=== PATIENT | male | born 1930 | race Caucasian/White ===

== ENCOUNTER 2016-06-27 21:54 | Inpatient (IN) | payer MEDICARE, MEDICAID ==
[~2016-06-27] VITALS: Ht 182.9 cm; Wt 90.7 kg
[~2016-06-27 21:54] MED LIST: ALLOPURINOL100 M1 ORAL; AMLODIPINE BESY10 MG ORAL; AMLODIPINE BESYL5 MG ORAL; ASCORBIC ACID500 M4 ORAL; ATIVAN1 MG ORAL; BENADRYL25 MG ORAL; BENADRYL50 MG ORAL; BETHANECHOL CHL25 MG ORAL; COLACE250 MG ORAL; COUMADIN3 MG ORAL; COZAAR50 MG ORAL; CRANBERRY450 M3 PO; DEPAKENE250 MG ORAL; DEPAKOTE250 MG PO; DOCUSATE CALCI240 MG PO; DOCUSATE SODIU100 MG ORAL; DONEPEZIL HCL10 M2 ORAL; FAMOTIDINE20 MG ORAL; FEOSOL45 MG PO; FERROUS SULFAT325 MG ORAL; FUROSEMIDE40 MG ORAL; HYDROCHLOROTHIA25 MG ORAL; IPRAT-ALBUT 0.5-3 ML IH; LEVOTHYROXINE25 MCG ORAL; LORAZEPAM0.5 MG ORAL; LORAZEPAM1 MG ORAL; LOSARTAN POTASS50 MG ORAL; MOM30 ML ORAL; MULTI VITAMIN1 EACH ORAL; NAMENDA10 MG ORAL; NORVASC5 MG ORAL; POTASSIUM99 M2 PO; PROSCAR5 MG ORAL; SERTRALINE HCL50 MG ORAL; SIMVASTATIN20 MG ORAL; STROMECTOL3 MG ORAL; TAMSULOSIN HCL0.4 MG ORAL; TRIAMCINOLONE10 G1 MC; TYLENOL325 MG ORAL; TYLENOL650 MG/20. ORAL; VISTARIL25 MG ORAL; ZINC SULFATE220 M1 ORAL; ZYRTEC10 MG ORAL
--- NOTE | 2016-06-27 22:19 | Emergency Room Report ---
History of Present Illness General Chief Complaint: Abnormal Labs Source: Medical Record, EMS, PMD Present Illness HPI Is a 85-year-old male with multiple medical problem. He resides in a [facility]. At baseline he is confused and has a feeding tube. He presents with abnormal lab with elevated BUN and creatinine. Also elevated sodium. Patient is nonresponsive. Unable to get history from him. No other complaint. History is from the [facility] And primary care DrBrionna Allergies: Coded Allergies: No Known Allergies (Unverified , 04/13/15) Patient History Past Medical History: see triage record, old chart reviewed Past Surgical History: other Pertinent Family History: none Social History: Denies: smoking Immunizations: other Reviewed Nursing Documentation: PMH: Agreed, PSxH: Agreed Nursing Documentation-PMH Hx Hypertension: Yes Hx Cancer: No Hx Dementia: Yes Hx Alzheimer's Disease: Yes Hx Parkinson's Disease: Yes Hx Encephalitis: No - Encephalopathy Hx Speech Problem: Yes - communicate deficit Review of Systems Constitutional: Reports: weakness All Other Systems: limited - Secondary to patient condition Physical Exam Vital Signs Date Time Temp Pulse Resp B/P Pulse Ox O2 Delivery O2 Flow Rate FiO2 06/27/16 21:55 97.0 99 22 134/71 95 Nasal Cannula 3.0 vitals unremarkable Sp02 EP Interpretation: reviewed, normal General Appearance: lethargic, Chronically Ill Head: normocephalic, atraumatic Eyes: bilateral eye EOMI, bilateral eye PERRL ENT: dry mucus membranes - Severely Neck: full range of motion, supple, no meningismus Respiratory: chest non-tender, lungs clear, normal breath sounds Cardiovascular #1: regular rate, rhythm, no murmur Gastrointestinal: normal bowel sounds, non tender, no mass, no organomegaly, no bruit, non-distended Musculoskeletal: back normal Neurologic: grossly normal - Grimace to pain Psychiatric: mood/affect normal Skin: warm/dry Medical Decision Making Diagnostic Impression: Primary Impression: Acute renal failure Qualified Codes: N17.9 - Acute kidney failure, unspecified Additional Impressions: Dehydration, severe Acute hypernatremia Anemia Qualified Codes: D64.9 - Anemia, unspecified Proteinuria Qualified Codes: R80.9 - Proteinuria, unspecified ER Course Patient presents with severe dehydration with acute renal failure. He is making urine now. No evidence of infection. CT scan head negative. Chest x- ray negative. Patient will be admitted. Lab Results Impression labs with acute renal failure. EKG Diagnostic Results Rate: normal Rhythm: NSR ST Segments: no acute changes Rhythm Strip Diag. Results EP Interpretation: yes Rate: 82 Rhythm: NSR, no PVC's, no ectopy Chest X-Ray Diagnostic Results EP Interpretation: Yes Findings: no consolidation, no effusion, no pneumothorax, no acute cardiopulmonary disease Number of Views: 1 CT/MRI/US Diagnostic Results CT/MRI/US Diagnostic Results : Imaging Test Ordered: ct head Impression negative per radiologist Last Vital Signs Date Time Temp Pulse Resp B/P Pulse Ox O2 Delivery O2 Flow Rate FiO2 06/27/16 21:55 97.0 99 22 134/71 95 Nasal Cannula 3.0 Status: improved Disposition: ADMITTED INPATIENT Condition: Serious QUINTIN JUAN M.D. June 27, 2016 22:19
[2016-06-27] MEDS ORDERED: LEVOTHYROXINE25 MCG PEG (22:28)
[2016-06-27] MEDS ORDERED: HYDRALAZINE HCL50 MG PEG (22:28)
[2016-06-27] MEDS ORDERED: DOCUSATE SODIU100 M2 PEG (22:28)
[2016-06-27] MEDS ORDERED: TAMSULOSIN HCL0.4 MG PEG (22:28)
[2016-06-27] MEDS ORDERED: LEVETIRACETAM500 M1 PEG (22:28)
[2016-06-27] MEDS ORDERED: PROSCAR5 MG PEG (22:28)
[2016-06-27] MEDS ORDERED: HYDRALAZINE HCL50 MG ORAL (22:28)
[2016-06-27 22:37] LABS: BASOPHILS % (AUTO) 0.6 % (0.0-2.0); EOSINOPHILS % (AUTO) 5.6 % (0.0-3.0); LYMPHOCYTES % (AUTO) 19.2 % (20.0-45.0); MEAN CORPUSCULAR HEMOGLOBIN 30.8 PG (27.0-31.0); MEAN CORPUSCULAR HGB CONC 31.1 G/DL (32.0-36.0); MEAN CORPUSCULAR VOLUME 99 FL (80-99); MEAN PLATELET VOLUME 10.9 FL (6.5-10.1); MONOCYTES % (AUTO) 7.3 % (1.0-10.0); NEUTROPHILS % (AUTO) 67.3 % (45.0-75.0); PLATELET COUNT 133 K/UL (150-450); RED BLOOD COUNT 3.32 M/UL (4.70-6.10); RED CELL DISTRIBUTION WIDTH 17.3 % (11.6-14.8); WHITE BLOOD COUNT 4.7 K/UL (4.8-10.8)
[2016-06-27 22:44] LABS: PROTHROMBIN TIME 10.3 SEC (9.30-11.50)
[2016-06-27 22:48] LABS: TROPONIN I < 0.30 ng/mL (<=0.30)
[2016-06-27 22:50] LABS: ANION GAP 12 (5-15); CALCIUM 9.6 mg/dL (8.6-10.2); CARBON DIOXIDE 28 mEQ/L (20-30); CHLORIDE 124 mEQ/L (98-107); CREATININE 2.7 mg/dL (0.7-1.2); HEMOLYSIS 4; POTASSIUM 4.4 mEQ/L (3.4-4.9)
[2016-06-27 22:52] LABS: SODIUM 164 mEQ/L (135-145)
[2016-06-27 23:24] LABS: APPEARANCE,URINE CLEAR; KETONES,URINE NEGATIVE (NEGATIVE); LEUKOCYTE ESTERASE ,URINE NEGATIVE (NEGATIVE); NITRITE,URINE NEGATIVE (NEGATIVE); PH,URINE 7 (4.5-8.0); PROTEIN,URINE 3+ (NEGATIVE); UROBILINOGEN,URINE NORMAL MG/DL (0.0-1.0)
[2016-06-27 23:47] VITALS: BP 143/88
[2016-06-28] VITALS (8 sets, daily range): BP systolic 123–168; BP diastolic 62–82
[2016-06-28 00:20] LABS: BACTERIA,URINE FEW /HPF; RBC,URINE 0-2 /HPF (0 - 0); WBC,URINE 0-2 /HPF (0 - 0)
[2016-06-28 06:24] LABS: BASOPHILS % (AUTO) 0.4 % (0.0-2.0); EOSINOPHILS % (AUTO) 5.9 % (0.0-3.0); LYMPHOCYTES % (AUTO) 20.9 % (20.0-45.0); MEAN CORPUSCULAR HEMOGLOBIN 28.8 PG (27.0-31.0); MEAN CORPUSCULAR HGB CONC 30.2 G/DL (32.0-36.0); MEAN CORPUSCULAR VOLUME 95 FL (80-99); MEAN PLATELET VOLUME 10.6 FL (6.5-10.1); MONOCYTES % (AUTO) 8.9 % (1.0-10.0); NEUTROPHILS % (AUTO) 63.9 % (45.0-75.0); PLATELET COUNT 132 K/UL (150-450); RED BLOOD COUNT 3.45 M/UL (4.70-6.10); RED CELL DISTRIBUTION WIDTH 17.2 % (11.6-14.8); WHITE BLOOD COUNT 4.9 K/UL (4.8-10.8)
[2016-06-28 06:38] LABS: ALANINE AMINOTRANSFERASE 51 U/L (3-41); ALBUMIN/GLOBULIN RATIO 0.8 (1.0-2.7); ASPARTATE AMINO TRANSFERASE 39 U/L (5-40); CALCIUM 9.2 mg/dL (8.6-10.2); CARBON DIOXIDE 26 mEQ/L (20-30); CHLORIDE 126 mEQ/L (98-107); CREATININE 2.4 mg/dL (0.7-1.2); HEMOLYSIS 4; POTASSIUM 4.3 mEQ/L (3.4-4.9); TOTAL PROTEIN 6.5 g/dL (6.6-8.7)
[2016-06-28 06:44] LABS: ANION GAP 9 (5-15)
[2016-06-28 06:55] LABS: SODIUM 161 mEQ/L (135-145)
[2016-06-28 09:35] LABS: CHOLESTEROL 108 mg/dL (< 200); CRP QUANT 0.3 mg/dL (< 0.5); HEMOLYSIS 11; LDL CHOLESTEROL (CALC.) 66 mg/dL (60-99); MAGNESIUM 2.2 mg/dL (1.7-2.5); PHOSPHORUS 2.7 mg/dL (2.5-4.8); URIC ACID 7.5 mg/dL (3.0-7.5)
--- NOTE | 2016-06-28 10:08 | Diagnostic Imaging Report ---
Indication: Chest Pain Comparison: 07/06/15 A single view chest radiograph was obtained. Findings: No definite infiltrate or pulmonary vascular congestion identified. The heart is enlarged. The aorta is mildly enlarged consistent with atherosclerotic vascular disease. Cholecystectomy clips are noted in the right upper quadrant of abdomen. The bones are osteopenic. Impression: No acute disease
--- NOTE | 2016-06-28 12:47 | Diagnostic Imaging Report ---
Indication: Altered mental status Technique: Contiguous 5 mm thick transaxial imaging of the head obtained in a Siemens Sensation [address] scanner. Soft tissue and bone windows generated. Total Dose length Product (DLP): [address] Dose Index Volume (CTDIvol): 70.38 mGy Comparison: 11/15/13 Findings: There is moderate prominence of the ventricles, basal cisterns, and cerebral sulci consistent with atrophy. Moderate, nonspecific, white matter hypoattenuation is noted throughout the brain consistent with chronic small vessel disease. There is no midline shift, edema, acute hemorrhage, mass effect, or abnormal extra-axial fluid collections. Bones and extra osseous soft tissues are unremarkable. There is opacification of the left maxillary sinus and bilateral ethmoid sinus. There is suggestion of expansion of the left maxillary sinus. Underlying polyps or a fluid retention cysts to be present. This is not evaluated well on the current study is obtained. Impression: No acute intracranial bleed, mass effect or edema. Moderate atrophy of the brain. Evidence of chronic small vessel disease involving white matter tracts. Moderate sinus disease as discussed above. [facility] has communicated the preliminary results to the Emergency Department. Their findings are largely concordant with this report. The CT scanner at [facility] is accredited by the [employer] and the scans are performed using protocols designed to limit radiation exposure to as low as reasonably achievable to attain images of sufficient resolution adequate for diagnostic evaluation.
--- NOTE | 2016-06-28 15:42 | Consultation ---
Consult Note Consult Note asked to evaluate for renal failure Is a 85-year-old male with multiple medical problem. He resides in a custodial. At baseline he is confused and has a feeding tube. He presents with abnormal lab with elevated BUN and creatinine. Also elevated sodium. Patient is nonresponsive. Unable to get history from him. No other complaint. History is from the custodial And primary care DrBrionna Rondon Hypertension: Yes Hx Cancer: No Hx Dementia: Yes Hx Alzheimer's Disease: Yes Hx Parkinson's Disease: Yes Hx Encephalitis: No - Encephalopathy Hx Speech Problem: Yes - communicate deficit patient examined- data reviewed discussed with cutter out/Plan status: # MARCO A on CKD, baseline Cr is 1.5 # Dehydration. and HyperNatremia Other: # h/o Bilateral hydroureter/hydronephrosis # S/P TURP # Coagulopathy 2/2 coumadin use, INR >10 # Anemia secondary to chronic disease # Anemia secondary to kidney disease # Distal common bile duct stone with moderate biliary ductal dilatation s/p sphincterotomy and stone removal and stent placement # Hypertension # Hypothyroidism Plan: UA- change IV to D5- Check TSH CARLEY kidney Monitor renal parameters and electrolytes- avoid nephrotoxics TAWANNA ONEIL June 28, 2016 15:42
--- NOTE | 2016-06-28 16:03 | GI Initial Consult Note ---
Lucia Johnson N.PBrionna 06/28/16 1603: History of Present Illness General Date patient seen: June 28, 2016 Time patient seen: 15:50 Reason for Hospitalization: Abnormal Labs Referring physician: TAMIKA ANGULO Reason for Consultation: GT EVALUATION Present Illness HPI Is a 85-year-old male with multiple medical problem. He resides in a [facility]. At baseline he is confused and has a feeding tube. He presents with abnormal lab with elevated BUN and creatinine. Also elevated sodium. Patient is nonresponsive. Unable to get history from him. No other complaint. History is from the [facility] And primary care Dr. GI CONSULT: HPI as noted above. GI consulted for GT evaluation/management and anemia. Pt seen on floor, [facility] limited. Patient presents today with anemia, elevated transaminase, hypoalbuminemia, and hypernatremia. Pt has hx of DVT, psychosis, GERD, dementia, constipation, Fe deficiency, hypothyroidism, HTN, s/ p ERCP 04/15/15 2/2 choledocholithiasis with stent placement. Home Meds Reported Medications Tamsulosin Hcl (TAMSULOSIN HCL*) 0.4 Mg Cap.er.24h, 0.4 MG PEG BEDTIME, CAP 06/27/16 Levothyroxine Sodium* (LEVOTHYROXINE SODIUM*) 25 Mcg Tablet, 25 MCG PEG DAILY, TAB Take in the morning on an empty stomach, at least 30 minutes before food. 06/27/16 Levetiracetam (LEVETIRACETAM) 500 Mg Tab.er.24h, 500 MG PEG BID, #30 TAB 0 Refills 06/27/16 Hydralazine Hcl* (HYDRALAZINE HCL*) 50 Mg Tablet, 50 MG PEG BID, TAB 06/27/16 Hydralazine Hcl* (HYDRALAZINE HCL*) 50 Mg Tablet, 50 MG ORAL BID, TAB 06/27/16 Finasteride* (PROSCAR*) 5 Mg Tablet, 5 MG PEG DAILY, #30 TAB 0 Refills 06/27/16 Docusate Sodium (DOCUSATE SODIUM) 100 Mg Tablet, 100 MG PEG DAILY, #30 TAB 0 Refills 06/27/16 Acetaminophen (Tylenol) 325 Mg Tab, 325 MG ORAL Q4HR Y for Prn Headache/Temp > 101, #30 TAB 2 Refills 5/14/16 Tamsulosin Hcl (TAMSULOSIN HCL*) 0.4 Mg Cap.er.24h, 0.4 MG ORAL BID, CAP 07/11/15 Lorazepam* (LORAZEPAM*) 1 Mg Tablet, 1 MG ORAL THREE TIMES A DAY Y for For Anxiety, TAB 07/11/15 Finasteride* (PROSCAR*) 5 Mg Tablet, 5 MG ORAL DAILY, #30 TAB 0 Refills 07/11/15 Diphenhydramine HCl (Diphenhydramine HCl) 50 Mg Cap, 50 MG ORAL Q6H Y for Itching, CAP 07/11/15 Cranberry Fruit Concentrate (CRANBERRY) 450 Mg Tablet, 450 MG PO DAILY, TAB 07/11/15 Bethanechol Chl* (BETHANECHOL CHLORIDE*) 25 Mg Tablet, 25 MG ORAL THREE TIMES A DAY, TAB 07/11/15 Warfarin Sod* (COUMADIN*) 3 Mg Tablet, 3 MG ORAL QPM, TAB 07/11/15 Levothyroxine Sodium* (LEVOTHYROXINE SODIUM*) 25 Mcg Tablet, 25 MCG ORAL DAILY, TAB Take in the morning on an empty stomach, at least 30 minutes before food. 04/14/15 Ipratropium/Albuterol Sulfate (IPRAT-ALBUT 0.5-3(2.5) MG/3 ML) 3 Ml Ampul.neb, 3 ML IH QID Y for Shortness of Breath, EA 04/14/15 Ferrous Sulfate* (FERROUS SULFATE*) 325 Mg Tablet, 325 MG ORAL TWICE A DAY, #60 TAB 0 Refills 04/14/15 Docusate Sodium* (DOCUSATE SODIUM*) 100 Mg Capsule, 100 MG ORAL DAILY, CAP 04/14/15 Lorazepam* (ATIVAN*) 1 Mg Tablet, 1 MG ORAL THREE TIMES A DAY, TAB 04/14/15 Amlodipine Besylate* (AMLODIPINE BESYLATE*) 5 Mg Tablet, 5 MG ORAL TWICE A DAY, TAB 04/14/15 Valproic Acid (Depakene) 250 Mg Cap, 250 MG ORAL DAILY, CAP 09/17/14 Potassium (POTASSIUM) 99 Mg Tablet, 40 MEQ PO DAILY, TAB 09/17/14 Furosemide* (LASIX*) 40 Mg Tablet, 40 MG ORAL DAILY, TAB 09/17/14 Losartan Potassium* (LOSARTAN POTASSIUM*) 50 Mg Tablet, 50 MG ORAL DAILY, TAB 09/17/14 Zinc Sulfate (ZINC SULFATE*) 220 Mg Capsule, 220 MG ORAL DAILY, CAP 0 Refills 11/21/13 Sertraline Hcl* (ZOLOFT*) 50 Mg Tablet, 50 MG ORAL DAILY, TAB 11/21/13 Iron,Carbonyl (FEOSOL) 45 Mg Tablet, 325 MG PO BID, TAB 11/21/13 Docusate Sodium (Docusate Sodium) 250 Mg Cap, 250 MG ORAL TWICE A DAY, CAP 11/21/13 Ascorbic Acid* (ASCORBIC ACID*) 500 Mg Tablet, 500 MG ORAL DAILY, #30 TAB 0 Refills 11/21/13 Acetaminophen (Acetaminophen) 650 Mg/20.3 Ml Soln, 650 MG ORAL Q4HR Y for Prn Headache/Temp > 101, ML 0 Refills 11/21/13 Memantine Hcl* (NAMENDA*) 10 Mg Tablet, 10 MG ORAL DAILY, TAB 01/14/13 Divalproex Sodium* (DEPAKOTE*) 250 Mg Tablet.dr, 125 MG PO BID 01/14/13 Donepezil Hcl* (DONEPEZIL HCL*) 10 Mg Tab.rapdis, 10 MG ORAL DAILY, TAB 01/14/13 Simvastatin (ZOCOR) 20 Mg Tablet, 20 MG ORAL BEDTIME, TAB 01/14/13 Allopurinol* (ALLOPURINOL*) 100 Mg Tablet, 100 MG ORAL DAILY, TAB 01/14/13 Losartan Potassium* (COZAAR*) 50 Mg Tablet, 100 MG ORAL DAILY 01/14/13 Multivitamin (MULTI VITAMIN DAILY) 1 Each Tablet, 1 TAB ORAL DAILY, TAB 0 Refills 01/14/13 Levothyroxine Sodium* (LEVOTHYROXINE SODIUM*) 25 Mcg Tablet, 25 MCG ORAL DAILY, TAB Take in the morning on an empty stomach, at least 30 minutes before food. 01/14/13 Lorazepam* (LORAZEPAM*) 0.5 Mg Tablet, 0.5 MG ORAL DAILY, TAB 01/14/13 Med list reviewed/reconciled: Yes Allergies: Coded Allergies: No Known Allergies (Unverified , 04/13/15) Patient History Limited by: medical condition History Provided By: Medical Record PMH Narrative Past Medical History: see triage record, old chart reviewed Past Surgical History: other Pertinent Family History: none Social History: Denies: smoking Immunizations: other Reviewed Nursing Documentation: PMH: Agreed, PSxH: Agreed Nursing Documentation-PMH Hx Hypertension: Yes Hx Cancer: No Hx Dementia: Yes Hx Alzheimer's Disease: Yes Hx Parkinson's Disease: Yes Hx Encephalitis: No - Encephalopathy Hx Speech Problem: Yes - communicate deficit Social History: Denies: alcohol use, drug use, other, smoking Review of Systems All Other Systems: limited Physical Exam Vital Signs Date Time Temp Pulse Resp B/P Pulse Ox O2 Delivery O2 Flow Rate FiO2 06/27/16 21:55 97.0 99 22 134/71 95 Nasal Cannula 3.0 06/28/16 12:00 28 Sp02 EP Interpretation: reviewed Labs Laboratory Tests Test 06/27/16 22:10 06/27/16 22:45 06/28/16 06:10 White Blood Count 4.7 K/UL (4.8-10.8) L 4.9 K/UL (4.8-10.8) Red Blood Count 3.32 M/UL (4.70-6.10) L 3.45 M/UL (4.70-6.10) L Hemoglobin 10.2 G/DL (14.2-18.0) L 9.9 G/DL (14.2-18.0) L Hematocrit 32.9 % (42.0-52.0) L 32.9 % (42.0-52.0) L Mean Corpuscular Volume 99 FL (80-99) 95 FL (80-99) Mean Corpuscular Hemoglobin 30.8 PG (27.0-31.0) 28.8 PG (27.0-31.0) Mean Corpuscular Hemoglobin Concent 31.1 G/DL (32.0-36.0) L 30.2 G/DL (32.0-36.0) L Red Cell Distribution Width 17.3 % (11.6-14.8) H 17.2 % (11.6-14.8) H Platelet Count 133 K/UL (150-450) L 132 K/UL (150-450) L Mean Platelet Volume 10.9 FL (6.5-10.1) H 10.6 FL (6.5-10.1) H Neutrophils (%) (Auto) 67.3 % (45.0-75.0) 63.9 % (45.0-75.0) Lymphocytes (%) (Auto) 19.2 % (20.0-45.0) L 20.9 % (20.0-45.0) Monocytes (%) (Auto) 7.3 % (1.0-10.0) 8.9 % (1.0-10.0) Eosinophils (%) (Auto) 5.6 % (0.0-3.0) H 5.9 % (0.0-3.0) H Basophils (%) (Auto) 0.6 % (0.0-2.0) 0.4 % (0.0-2.0) Prothrombin Time 10.3 SEC (9.30-11.50) Prothromb Time International Ratio 1.0 (0.9-1.1) Sodium Level 164 mEQ/L (135-145) *H 161 mEQ/L (135-145) *H Potassium Level 4.4 mEQ/L (3.4-4.9) 4.3 mEQ/L (3.4-4.9) Chloride Level 124 mEQ/L (98-107) H 126 mEQ/L (98-107) H Carbon Dioxide Level 28 mEQ/L (20-30) 26 mEQ/L (20-30) Anion Gap 12 (5-15) 9 (5-15) Blood Urea Nitrogen 93 mg/dL (7-23) H 87 mg/dL (7-23) H Creatinine 2.7 mg/dL (0.7-1.2) H 2.4 mg/dL (0.7-1.2) H Estimat Glomerular Filtration Rate mL/min (>60) mL/min (>60) Glucose Level 95 mg/dL (74-106) 91 mg/dL (74-106) Calcium Level 9.6 mg/dL (8.6-10.2) 9.2 mg/dL (8.6-10.2) Troponin I < 0.30 ng/mL (<=0.30) Urine Color Pale yellow Urine Appearance Clear Urine pH 7 (4.5-8.0) Urine Specific [place] 1.005 (1.005-1.035) Urine Protein 3+ (NEGATIVE) H Urine Glucose (UA) Negative (NEGATIVE) Urine Ketones Negative (NEGATIVE) Urine Occult Blood Negative (NEGATIVE) Urine Nitrite Negative (NEGATIVE) Urine Bilirubin Negative (NEGATIVE) Urine Urobilinogen Normal MG/DL (0.0-1.0) Urine Leukocyte Esterase Negative (NEGATIVE) Urine RBC 0-2 /HPF (0 - 0) H Urine WBC 0-2 /HPF (0 - 0) Urine Squamous Epithelial Cells None /LPF (NONE/OCC) Urine Bacteria Few /HPF (NONE) Hemoglobin A1c 5.0 % (< 6.0) Uric Acid 7.5 mg/dL (3.0-7.5) Phosphorus Level 2.7 mg/dL (2.5-4.8) Magnesium Level 2.2 mg/dL (1.7-2.5) Total Bilirubin 0.4 mg/dL (0.0-1.2) Gamma Glutamyl Transpeptidase 10 U/L (8-61) Aspartate Amino Transf (AST/SGOT) 39 U/L (5-40) Alanine Aminotransferase (ALT/SGPT) 51 U/L (3-41) H Alkaline Phosphatase 99 U/L (40-129) Total Creatine Kinase 22 U/L (38-174) L C-Reactive Protein, Quantitative 0.3 mg/dL (< 0.5) Total Protein 6.5 g/dL (6.6-8.7) L Albumin 2.9 g/dL (3.5-5.2) L Globulin 3.6 g/dL Albumin/Globulin Ratio 0.8 (1.0-2.7) L Triglycerides Level 77 mg/dL (< 150) Cholesterol Level 108 mg/dL (< 200) LDL Cholesterol 66 mg/dL (60-99) HDL Cholesterol 27 mg/dL (> 60) Cholesterol/HDL Ratio 4.0 (3.3-4.4) General Appearance: no apparent distress EENT: normal ENT inspection Neck: supple Respiratory: normal breath sounds, no respiratory distress Cardiovascular: normal rate Gastrointestinal: gt - c/d/i Rectal: deferred Skin: normal inspection, normal color, no rash, warm/dry Lymphatic: normal inspection, no adenopathy Current Medications Current Medications Medications (Trade) Dose Ordered Sig/Marci Route PRN Reason Start Time Stop Time Status Last Admin Dose Admin Dextrose (D5W 1000ml) 1,000 ml @ 100 mls/hr Q10H IV 06/29/16 10:00 07/29/16 09:59 UNV Olanzapine 2.5 mg 2.5 mg BEDTIME ORAL 06/28/16 21:00 07/28/16 20:59 GI: Plan Problems: (1) Hypernatremia (2) Anemia (3) Gastritis (4) Abdominal pain (5) Elevated CEA (6) Hypoalbuminemia (7) Encephalopathy acute (8) Diverticulosis (9) Hypothyroidism Plan anemia work up OB stool uncollected monitor H&H, transfuse prn H2B GI prophylaxis start GTFs per dietary GT site care daily/prn electrolyte correction bowel regime fu labs Discussed with Dr. Ho. Thank you for referring this patient, we will follow. HIEU HO 06/29/16 1719: History of Present Illness General Reason for Hospitalization: Abnormal Labs Present Illness Home Meds Reported Medications Tamsulosin Hcl (TAMSULOSIN HCL*) 0.4 Mg Cap.er.24h, 0.4 MG PEG BEDTIME, CAP 06/27/16 Levothyroxine Sodium* (LEVOTHYROXINE SODIUM*) 25 Mcg Tablet, 25 MCG PEG DAILY, TAB Take in the morning on an empty stomach, at least 30 minutes before food. 06/27/16 Levetiracetam (LEVETIRACETAM) 500 Mg Tab.er.24h, 500 MG PEG BID, #30 TAB 0 Refills 06/27/16 Hydralazine Hcl* (HYDRALAZINE HCL*) 50 Mg Tablet, 50 MG PEG BID, TAB 06/27/16 Hydralazine Hcl* (HYDRALAZINE HCL*) 50 Mg Tablet, 50 MG ORAL BID, TAB 06/27/16 Finasteride* (PROSCAR*) 5 Mg Tablet, 5 MG PEG DAILY, #30 TAB 0 Refills 06/27/16 Docusate Sodium (DOCUSATE SODIUM) 100 Mg Tablet, 100 MG PEG DAILY, #30 TAB 0 Refills 06/27/16 Acetaminophen (Tylenol) 325 Mg Tab, 325 MG ORAL Q4HR Y for Prn Headache/Temp > 101, #30 TAB 2 Refills 07/11/15 Tamsulosin Hcl (TAMSULOSIN HCL*) 0.4 Mg Cap.er.24h, 0.4 MG ORAL BID, CAP 07/11/15 Lorazepam* (LORAZEPAM*) 1 Mg Tablet, 1 MG ORAL THREE TIMES A DAY Y for For Anxiety, TAB 07/11/15 Finasteride* (PROSCAR*) 5 Mg Tablet, 5 MG ORAL DAILY, #30 TAB 0 Refills 07/11/15 Diphenhydramine HCl (Diphenhydramine HCl) 50 Mg Cap, 50 MG ORAL Q6H Y for Itching, CAP 07/11/15 Cranberry Fruit Concentrate (CRANBERRY) 450 Mg Tablet, 450 MG PO DAILY, TAB 07/11/15 Bethanechol Chl* (BETHANECHOL CHLORIDE*) 25 Mg Tablet, 25 MG ORAL THREE TIMES A DAY, TAB 07/11/15 Warfarin Sod* (COUMADIN*) 3 Mg Tablet, 3 MG ORAL QPM, TAB 07/11/15 Levothyroxine Sodium* (LEVOTHYROXINE SODIUM*) 25 Mcg Tablet, 25 MCG ORAL DAILY, TAB Take in the morning on an empty stomach, at least 30 minutes before food. 04/14/15 Ipratropium/Albuterol Sulfate (IPRAT-ALBUT 0.5-3(2.5) MG/3 ML) 3 Ml Ampul.neb, 3 ML IH QID Y for Shortness of Breath, EA 04/14/15 Ferrous Sulfate* (FERROUS SULFATE*) 325 Mg Tablet, 325 MG ORAL TWICE A DAY, #60 TAB 0 Refills 04/14/15 Docusate Sodium* (DOCUSATE SODIUM*) 100 Mg Capsule, 100 MG ORAL DAILY, CAP 04/14/15 Lorazepam* (ATIVAN*) 1 Mg Tablet, 1 MG ORAL THREE TIMES A DAY, TAB 04/14/15 Amlodipine Besylate* (AMLODIPINE BESYLATE*) 5 Mg Tablet, 5 MG ORAL TWICE A DAY, TAB 04/14/15 Valproic Acid (Depakene) 250 Mg Cap, 250 MG ORAL DAILY, CAP 09/17/14 Potassium (POTASSIUM) 99 Mg Tablet, 40 MEQ PO DAILY, TAB 09/17/14 Furosemide* (LASIX*) 40 Mg Tablet, 40 MG ORAL DAILY, TAB 09/17/14 Losartan Potassium* (LOSARTAN POTASSIUM*) 50 Mg Tablet, 50 MG ORAL DAILY, TAB 09/17/14 Zinc Sulfate (ZINC SULFATE*) 220 Mg Capsule, 220 MG ORAL DAILY, CAP 0 Refills 11/21/13 Sertraline Hcl* (ZOLOFT*) 50 Mg Tablet, 50 MG ORAL DAILY, TAB 11/21/13 Iron,Carbonyl (FEOSOL) 45 Mg Tablet, 325 MG PO BID, TAB 11/21/13 Docusate Sodium (Docusate Sodium) 250 Mg Cap, 250 MG ORAL TWICE A DAY, CAP 11/21/13 Ascorbic Acid* (ASCORBIC ACID*) 500 Mg Tablet, 500 MG ORAL DAILY, #30 TAB 0 Refills 11/21/13 Acetaminophen (Acetaminophen) 650 Mg/20.3 Ml Soln, 650 MG ORAL Q4HR Y for Prn Headache/Temp > 101, ML 0 Refills 11/21/13 Memantine Hcl* (NAMENDA*) 10 Mg Tablet, 10 MG ORAL DAILY, TAB 01/14/13 Divalproex Sodium* (DEPAKOTE*) 250 Mg Tablet.dr, 125 MG PO BID 01/14/13 Donepezil Hcl* (DONEPEZIL HCL*) 10 Mg Tab.rapdis, 10 MG ORAL DAILY, TAB 01/14/13 Simvastatin (ZOCOR) 20 Mg Tablet, 20 MG ORAL BEDTIME, TAB 01/14/13 Allopurinol* (ALLOPURINOL*) 100 Mg Tablet, 100 MG ORAL DAILY, TAB 01/14/13 Losartan Potassium* (COZAAR*) 50 Mg Tablet, 100 MG ORAL DAILY 01/14/13 Multivitamin (MULTI VITAMIN DAILY) 1 Each Tablet, 1 TAB ORAL DAILY, TAB 0 Refills 01/14/13 Levothyroxine Sodium* (LEVOTHYROXINE SODIUM*) 25 Mcg Tablet, 25 MCG ORAL DAILY, TAB Take in the morning on an empty stomach, at least 30 minutes before food. 01/14/13 Lorazepam* (LORAZEPAM*) 0.5 Mg Tablet, 0.5 MG ORAL DAILY, TAB 01/14/13 Allergies: Coded Allergies: No Known Allergies (Unverified , 04/13/15) GI: Plan Plan The patient was seen and examined at bedside and all new and available data was reviewed in the patients chart. I agree with the above findings, impression and plan. (Patient seen earlier today. Signature stamp does not reflect patient encounter time.). -Kiana Garcia MDh Prakash N.P. June 28, 2016 16:03 HIEU HO June 29, 2016 13:59
[2016-06-28] MEDS ORDERED: Famotidine 20 MG/ 2ML VIAL IVP SCH (18:00)
[2016-06-28] MEDS ORDERED: Docusate 250mg cap ORAL SCH (18:00)
--- NOTE | 2016-06-28 18:18 | Consultation ---
DATE OF CONSULTATION: HISTORY OF PRESENT ILLNESS: The patient is an 85-year-old male with a history of multiple medical problems, includes diverticulosis, elevated CEA, hypoalbuminemia, renal insufficiency, gallstones, pancreatitis, electrolyte imbalance, and psychotic disorder has been admitted to the hospital due to abnormal laboratories. The patient also presents with failure to thrive and cognitive impairment. He is not engaged during the evaluation and has a feeding tube. The patient is not engaged and presents with waxing and waning consciousness and impairment of cognition including memory, concentration, and attention. No anxiety or agitation. PAST PSYCHIATRIC HISTORY: Diagnosed with psychotic disorder and dementia. The patient has been treated with Depakote for behavior issues. PAST MEDICAL HISTORY: Significant for pancreatitis, acute renal failure, gastritis, diverticulosis, and irregular heartbeat. ALLERGIES: No known drug allergies. SUBSTANCE ABUSE HISTORY: No known history of illicit drug use or alcohol. MENTAL STATUS EXAMINATION: The patient is disoriented, confused, and lethargic. Mood is neutral. Affect is constricted. Congruent with mood. Thought process, there is a paucity of thought content. Thought content, no suicidal or homicidal ideations. 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 [place] II Deferred. [place] III As above. [place] IV Low. [place] V Global assessment of functioning is 10. PLAN: 1. We will start the patient on olanzapine 2.5 mg at bedtime. 2. We will continue to follow and readjust the medications. Donny Adkins M.D. DR: PIETER JOB#: [id number] CC:
[2016-06-28] MEDS ORDERED: OLANZapine 2.5mg tab ORAL SCH ×2 (21:00)
[2016-06-28] MEDS: HydrALAZINE 25mg tab ORAL SCH (21:08)
--- NOTE | 2016-06-28 22:46 | Consultation ---
Consult Note Consult Note HEMATOLOGY Consult Note Reason for consult: Anemia eval Requesting MD: Seth Lee Date of service: 06/28/16 ID: Dear Dr. Lee, Mr. Jarrod Moore is a pleasant 89 yo male well known to our service with a history of dementia, hypertensive heart disease, and hypothyroidism. He was transferred from senior living facility with complaints of abnml labs, elev bun and cr. In the past was seen in 03/2015 for altered mental status. He has been delirious and has recently been admitted for [facility] as well. He has no complaints. He was noted to have anemia and a elevated INR and the hematology service was consulted. In addition he potentialy has gallstone pancreatitis and is s/p a biliary stent, has been evaluated by CTs on past admissions. PAST MEDICAL HISTORY: As above. PAST SURGICAL HISTORY: None. MEDICATIONS: Home medications reconciled and reviewed. ALLERGIES: None. FAMILY HISTORY: None. SOCIAL HISTORY: The patient denies history of tobacco, ethanol, or drugs. REVIEW OF SYSTEMS: GENERAL: Positive fevers. No chills or night sweats. HEENT: No headaches or visual changes. No sore throat. CARDIOPULMONARY: No chest pain or shortness of breath. GASTROINTESTINAL: No nausea. No vomiting. No diarrhea. GENITOURINARY: No urgency or frequency. MUSCULOSKELETAL: No joint pain or swelling. NEUROLOGIC: No history of seizures. PHYSICAL EXAMINATION: Last 24 Hour Vital Signs Date Time Temp Pulse Resp B/P Pulse Ox O2 Delivery O2 Flow Rate FiO2 06/28/16 21:08 136/74 06/28/16 20:00 96.9 67 19 168/71 98 Room Air 06/28/16 18:21 58 132/75 06/28/16 16:00 97.4 60 21 132/75 96 Room Air 06/28/16 16:00 58 06/28/16 12:00 64 06/28/16 12:00 97.4 67 20 146/74 98 T-piece 28 06/28/16 08:30 65 06/28/16 07:45 98.1 107 21 136/66 99 Room Air 06/28/16 07:26 97.1 91 12 124/82 95 Room Air 4.0 06/28/16 07:26 97.8 91 16 165/74 94 Room Air 06/28/16 05:48 71 12 124/82 95 Room Air 06/28/16 03:46 97 13 143/77 100 Room Air 06/28/16 01:47 97.1 85 12 123/62 98 Room Air 06/27/16 23:47 96.7 81 24 143/88 100 Nasal Cannula 4.0 VITAL SIGNS: reviewed as per below GENERAL: The patient is a well-developed male. He is awake and somewhat lethargic, but is arousable HEENT: His pupils are equal, round, and reactive to light. Oropharynx is clear. NECK: Supple. There is no lymphadenopathy. HEART: Regular rate and rhythm. LUNGS: Clear. ABDOMEN: Soft, slightly ttp, nondistended with normoactive bowel sounds. EXTREMITIES: Without clubbing or cyanosis. Laboratory Tests Test 06/27/16 22:45 06/28/16 06:10 Urine Color Pale yellow Urine Appearance Clear Urine pH 7 (4.5-8.0) Urine Specific [address] 1.005 (1.005-1.035) Urine Protein 3+ (NEGATIVE) H Urine Glucose (UA) Negative (NEGATIVE) Urine Ketones Negative (NEGATIVE) Urine Occult Blood Negative (NEGATIVE) Urine Nitrite Negative (NEGATIVE) Urine Bilirubin Negative (NEGATIVE) Urine Urobilinogen Normal MG/DL (0.0-1.0) Urine Leukocyte Esterase Negative (NEGATIVE) Urine RBC 0-2 /HPF (0 - 0) H Urine WBC 0-2 /HPF (0 - 0) Urine Squamous Epithelial Cells None /LPF (NONE/OCC) Urine Bacteria Few /HPF (NONE) White Blood Count 4.9 K/UL (4.8-10.8) Red Blood Count 3.45 M/UL (4.70-6.10) L Hemoglobin 9.9 G/DL (14.2-18.0) L Hematocrit 32.9 % (42.0-52.0) L Mean Corpuscular Volume 95 FL (80-99) Mean Corpuscular Hemoglobin 28.8 PG (27.0-31.0) Mean Corpuscular Hemoglobin Concent 30.2 G/DL (32.0-36.0) L Red Cell Distribution Width 17.2 % (11.6-14.8) H Platelet Count 132 K/UL (150-450) L Mean Platelet Volume 10.6 FL (6.5-10.1) H Neutrophils (%) (Auto) 63.9 % (45.0-75.0) Lymphocytes (%) (Auto) 20.9 % (20.0-45.0) Monocytes (%) (Auto) 8.9 % (1.0-10.0) Eosinophils (%) (Auto) 5.9 % (0.0-3.0) H Basophils (%) (Auto) 0.4 % (0.0-2.0) Sodium Level 161 mEQ/L (135-145) *H Potassium Level 4.3 mEQ/L (3.4-4.9) Chloride Level 126 mEQ/L (98-107) H Carbon Dioxide Level 26 mEQ/L (20-30) Anion Gap 9 (5-15) Blood Urea Nitrogen 87 mg/dL (7-23) H Creatinine 2.4 mg/dL (0.7-1.2) H Estimat Glomerular Filtration Rate mL/min (>60) Glucose Level 91 mg/dL (74-106) Hemoglobin A1c 5.0 % (< 6.0) Uric Acid 7.5 mg/dL (3.0-7.5) Calcium Level 9.2 mg/dL (8.6-10.2) Phosphorus Level 2.7 mg/dL (2.5-4.8) Magnesium Level 2.2 mg/dL (1.7-2.5) Total Bilirubin 0.4 mg/dL (0.0-1.2) Gamma Glutamyl Transpeptidase 10 U/L (8-61) Aspartate Amino Transf (AST/SGOT) 39 U/L (5-40) Alanine Aminotransferase (ALT/SGPT) 51 U/L (3-41) H Alkaline Phosphatase 99 U/L (40-129) Total Creatine Kinase 22 U/L (38-174) L C-Reactive Protein, Quantitative 0.3 mg/dL (< 0.5) Total Protein 6.5 g/dL (6.6-8.7) L Albumin 2.9 g/dL (3.5-5.2) L Globulin 3.6 g/dL Albumin/Globulin Ratio 0.8 (1.0-2.7) L Triglycerides Level 77 mg/dL (< 150) Cholesterol Level 108 mg/dL (< 200) LDL Cholesterol 66 mg/dL (60-99) HDL Cholesterol 27 mg/dL (> 60) Cholesterol/HDL Ratio 4.0 (3.3-4.4) Assessment: # Anemia secondary to chronic disease - obtain a anemia workup and also GI service is on the case # Anemia secondary to kidney disease # RLE DVT hx however has recurrent GI bleed therefore no coumadin # MARCO A on CKD, baseline Cr is 1.5 # Hx of leukocytosis secondary to infection/stress-> from before resolved # Hx thrombocytopenia secondary to infection likely-> from before resolved # Distal common bile duct stone with moderate biliary ductal dilatation s/p sphincterotomy and stone removal and stent placement # Hypertension # Hypothyroidism # Altered mental status # Dehydration. # s/p TURP # Bilateral hydroureter/hydronephrosis Recommendations: - Monitor counts - Transfuse as needed - Do not recommend coumadin given hx of recurrent bleeding - Appreciate Gi consultation - Nutritional support - Supportive care - DVT ppx SCDs - DW Staff Thank you Dr. Seth Lee for this kind referral, please do not hesitate to contact me with any further questions, Esdras Moraes June 28, 2016 22:46
[2016-06-29 05:38] LABS: BASOPHILS % (AUTO) 0.7 % (0.0-2.0); EOSINOPHILS % (AUTO) 6.2 % (0.0-3.0); LYMPHOCYTES % (AUTO) 16.8 % (20.0-45.0); MEAN CORPUSCULAR HGB CONC 31.2 G/DL (32.0-36.0); MEAN CORPUSCULAR VOLUME 93 FL (80-99); MEAN PLATELET VOLUME 11.1 FL (6.5-10.1); MONOCYTES % (AUTO) 10.1 % (1.0-10.0); NEUTROPHILS % (AUTO) 66.3 % (45.0-75.0); PLATELET COUNT 127 K/UL (150-450); RED CELL DISTRIBUTION WIDTH 16.3 % (11.6-14.8); WHITE BLOOD COUNT 4.2 K/UL (4.8-10.8)
[2016-06-29 05:43] LABS: INR 1.1 (0.9-1.1); PROTHROMBIN TIME 10.7 SEC (9.30-11.50)
[2016-06-29] MEDS: HydrALAZINE 25mg tab ORAL SCH ×3 (06:00→21:19)
[2016-06-29 06:08] LABS: ALANINE AMINOTRANSFERASE 38 U/L (3-41); ALBUMIN/GLOBULIN RATIO 0.8 (1.0-2.7); ANION GAP 12 (5-15); ASPARTATE AMINO TRANSFERASE 25 U/L (5-40); CALCIUM 8.8 mg/dL (8.6-10.2); CARBON DIOXIDE 24 mEQ/L (20-30); CHLORIDE 118 mEQ/L (98-107); CREATININE 2.1 mg/dL (0.7-1.2); POTASSIUM 3.7 mEQ/L (3.4-4.9); SODIUM 154 mEQ/L (135-145); TOTAL PROTEIN 5.8 g/dL (6.6-8.7)
[2016-06-29 06:26] LABS: CRP QUANT 0.9 mg/dL (< 0.5); MAGNESIUM 2.2 mg/dL (1.7-2.5); PHOSPHORUS 2.8 mg/dL (2.5-4.8); URIC ACID 7.1 mg/dL (3.0-7.5)
[2016-06-29] MEDS ORDERED: Levothyroxine 25mcg tab ORAL SCH (06:30)
[2016-06-29 06:31] LABS: FERRITIN 507 ng/mL (10-230); HEMOLYSIS 4; IRON 81 ug/dL (59-158); THYROID STIMULATING HORMONE 0.487 uIU/mL (0.300-4.500); TOTAL IRON BINDING CAPACITY 178 ug/dL (250-400)
[2016-06-29 08:00] VITALS: BP 139/77
[2016-06-29 08:11] VITALS: BP 139/77
[2016-06-29 08:17] LABS: ANISOCYTOSIS 1+; BAND NEUTROPHILS % (MANUAL) 0 % (0-8); BASOPHILS % (MANUAL) 0 % (0-2); EOSINOPHILS % (MANUAL) 10 % (0-3); HYPOCHROMASIA 1+; LYMPHOCYTES % (MANUAL) 24 % (20-45); NEUTROPHILS % (MANUAL) 58 % (45-75); PLATELET ESTIMATE DECREASED; PLATELET MORPHOLOGY NORMAL; TOTAL CELLS COUNTED 100
[2016-06-29 08:27] LABS: PATH BLOOD SMEAR/OMC SENT TO PATHOLOGIST
--- NOTE | 2016-06-29 09:51 | General Progress Note ---
Assessment/Plan Status: stable Status Narrative Na and Cr lower Assessment/Plan status: # MARCO A on CKD, baseline Cr is 1.5 # Dehydration. 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 # Distal common bile duct stone with moderate biliary ductal dilatation s/p sphincterotomy and stone removal and stent placement # Hypertension # Hypothyroidism Plan: UA- 100cc / h IV to D5- Check TSH : low : DC synthroid CARLEY kidney pending Monitor renal parameters and electrolytes- avoid nephrotoxics Subjective ROS Limited/Unobtainable: No Constitutional: Reports: malaise Allergies: Coded Allergies: No Known Allergies (Unverified , 04/13/15) Objective Last 24 Hour Vital Signs Date Time Temp Pulse Resp B/P Pulse Ox O2 Delivery O2 Flow Rate FiO2 06/29/16 08:55 137/77 06/29/16 08:11 97.1 64 18 139/77 95 Room Air 06/29/16 08:00 97.1 69 18 139/77 Room Air 95 06/29/16 06:00 138/78 06/29/16 04:00 61 06/29/16 00:00 99 06/28/16 21:08 136/74 06/28/16 20:00 58 06/28/16 20:00 96.9 67 19 168/71 98 Room Air 06/28/16 18:21 58 132/75 06/28/16 16:00 97.4 60 21 132/75 96 Room Air 06/28/16 16:00 58 06/28/16 12:00 64 06/28/16 12:00 97.4 67 20 146/74 98 T-piece 28 Intake and Output 06/28/16 06/29/16 19:00 07:00 Intake Total 1035 ml 1600 ml Output Total 1650 ml Balance -615 ml 1600 ml Intake Free Water 200 ml 400 ml IV Total 775 ml 890 ml Tube Feeding 60 ml 310 ml Output Urine Total 1650 ml # Bowel Movements 2 Laboratory Tests 06/29/16 03:55: White Blood Count 4.2L, Red Blood Count 3.20L, Hemoglobin 9.3L, Hematocrit 29.8L , Mean Corpuscular Volume 93, Mean Corpuscular Hemoglobin 29.0, Mean Corpuscular Hemoglobin Concent 31.2L, Red Cell Distribution Width 16.3H, Platelet Count 127L, Mean Platelet Volume 11.1H, Neutrophils (%) (Auto) 66.3, Lymphocytes (%) (Auto) 16.8L, Monocytes (%) (Auto) 10.1H, Eosinophils (%) (Auto ) 6.2H, Basophils (%) (Auto) 0.7, Differential Total Cells Counted 100, Neutrophils % (Manual) 58, Lymphocytes % (Manual) 24, Monocytes % (Manual) 8, Eosinophils % (Manual) 10H, Basophils % (Manual) 0, Band Neutrophils 0, Platelet Estimate DecreasedL, Platelet Morphology Normal, Hypochromasia 1+, Anisocytosis 1+, Prothrombin Time 10.7, Prothromb Time International Ratio 1.1, Activated Partial Thromboplast Time 29, Sodium Level 154H, Potassium Level 3.7, Chloride Level 118H, Carbon Dioxide Level 24, Anion Gap 12, Blood Urea Nitrogen 70H, Creatinine 2.1H, Estimat Glomerular Filtration Rate , Glucose Level 148H, Uric Acid 7.1, Calcium Level 8.8, Phosphorus Level 2.8, Magnesium Level 2.2, Iron Level 81, Total Iron Binding Capacity 178L, Percent Iron Saturation 46, Unsaturated Iron Binding 97L, Ferritin 507H, Total Bilirubin 0.4, Gamma Glutamyl Transpeptidase 9, Aspartate Amino Transf (AST/SGOT) 25, Alanine Aminotransferase (ALT/SGPT) 38, Alkaline Phosphatase 102, Total Creatine Kinase 23L, C-Reactive Protein, Quantitative 0.9H, Pro-B-Type Natriuretic Peptide 1261H , Total Protein 5.8L, Albumin 2.7L, Globulin 3.1, Albumin/Globulin Ratio 0.8L, Vitamin B12 Level 691, Folate [Pending], Thyroid Stimulating Hormone (TSH) 0.487 06/29/16 04:00: Urine Eosinophils None seen Height (Feet): 6 Height (Inches): 0.00 Weight (Pounds): 200 General Appearance: no apparent distress Cardiovascular: normal rate Respiratory/Chest: lungs clear Abdomen: soft, other - GT+ TAWANNA ONEIL June 29, 2016 09:51
[2016-06-29] MEDS: Docusate 250mg cap ORAL SCH ×2 (10:00→17:23)
--- NOTE | 2016-06-29 11:17 | GI Progress Note ---
Assessment/Plan Problems: (1) Elevated CEA ICD Codes: R97.0 - Elevated carcinoembryonic antigen [CEA] SNOMED: 19023905, 125351872 (2) Encephalopathy acute ICD Codes: G93.40 - Encephalopathy acute SNOMED: 0603607 (3) Abdominal pain ICD Codes: R10.9 - Unspecified abdominal pain SNOMED: 24941141 (4) Hypoalbuminemia ICD Codes: E88.09 - Other disorders of plasma-protein metabolism, not elsewhere classified SNOMED: 414501547 (5) Gastritis ICD Codes: K29.70 - Gastritis, unspecified, without bleeding SNOMED: 3421500 (6) Anemia ICD Codes: D64.9 - Anemia, unspecified SNOMED: 878068548 Qualifiers: Qualified Codes: D64.9 - Anemia, unspecified Status: stable Status Narrative Discussed with Dr. Daigle. Assessment/Plan OB stool uncollected monitor H&H, transfuse prn H2B GI prophylaxis GTFs per dietary GT site care daily/prn electrolyte correction bowel regime fu labs Subjective Subjective limited Objective Last 24 Hour Vital Signs Date Time Temp Pulse Resp B/P Pulse Ox O2 Delivery O2 Flow Rate FiO2 06/29/16 08:55 137/77 06/29/16 08:11 97.1 64 18 139/77 95 Room Air 06/29/16 08:00 97.1 69 18 139/77 Room Air 95 06/29/16 06:00 138/78 06/29/16 04:00 61 06/29/16 00:00 99 06/28/16 21:08 136/74 06/28/16 20:00 58 06/28/16 20:00 96.9 67 19 168/71 98 Room Air 06/28/16 18:21 58 132/75 06/28/16 16:00 97.4 60 21 132/75 96 Room Air 06/28/16 16:00 58 06/28/16 12:00 64 06/28/16 12:00 97.4 67 20 146/74 98 T-piece 28 Intake and Output 06/28/16 06/29/16 19:00 07:00 Intake Total 1035 ml 1600 ml Output Total 1650 ml Balance -615 ml 1600 ml Intake Free Water 200 ml 400 ml IV Total 775 ml 890 ml Tube Feeding 60 ml 310 ml Output Urine Total 1650 ml # Bowel Movements 2 Laboratory Tests Test 06/29/16 03:55 06/29/16 04:00 White Blood Count 4.2 K/UL (4.8-10.8) L Red Blood Count 3.20 M/UL (4.70-6.10) L Hemoglobin 9.3 G/DL (14.2-18.0) L Hematocrit 29.8 % (42.0-52.0) L Mean Corpuscular Volume 93 FL (80-99) Mean Corpuscular Hemoglobin 29.0 PG (27.0-31.0) Mean Corpuscular Hemoglobin Concent 31.2 G/DL (32.0-36.0) L Red Cell Distribution Width 16.3 % (11.6-14.8) H Platelet Count 127 K/UL (150-450) L Mean Platelet Volume 11.1 FL (6.5-10.1) H Neutrophils (%) (Auto) 66.3 % (45.0-75.0) Lymphocytes (%) (Auto) 16.8 % (20.0-45.0) L Monocytes (%) (Auto) 10.1 % (1.0-10.0) H Eosinophils (%) (Auto) 6.2 % (0.0-3.0) H Basophils (%) (Auto) 0.7 % (0.0-2.0) Differential Total Cells Counted 100 Neutrophils % (Manual) 58 % (45-75) Lymphocytes % (Manual) 24 % (20-45) Monocytes % (Manual) 8 % (1-10) Eosinophils % (Manual) 10 % (0-3) H Basophils % (Manual) 0 % (0-2) Band Neutrophils 0 % (0-8) Platelet Estimate Decreased L Platelet Morphology Normal Hypochromasia 1+ Anisocytosis 1+ Prothrombin Time 10.7 SEC (9.30-11.50) Prothromb Time International Ratio 1.1 (0.9-1.1) Activated Partial Thromboplast Time 29 SEC (23-33) Sodium Level 154 mEQ/L (135-145) H Potassium Level 3.7 mEQ/L (3.4-4.9) Chloride Level 118 mEQ/L (98-107) H Carbon Dioxide Level 24 mEQ/L (20-30) Anion Gap 12 (5-15) Blood Urea Nitrogen 70 mg/dL (7-23) H Creatinine 2.1 mg/dL (0.7-1.2) H Estimat Glomerular Filtration Rate mL/min (>60) Glucose Level 148 mg/dL (74-106) H Uric Acid 7.1 mg/dL (3.0-7.5) Calcium Level 8.8 mg/dL (8.6-10.2) Phosphorus Level 2.8 mg/dL (2.5-4.8) Magnesium Level 2.2 mg/dL (1.7-2.5) Iron Level 81 ug/dL (59-158) Total Iron Binding Capacity 178 ug/dL (250-400) L Percent Iron Saturation 46 % (15-50) Unsaturated Iron Binding 97 ug/dL (112-346) L Ferritin 507 ng/mL (10-230) H Total Bilirubin 0.4 mg/dL (0.0-1.2) Gamma Glutamyl Transpeptidase 9 U/L (8-61) Aspartate Amino Transf (AST/SGOT) 25 U/L (5-40) Alanine Aminotransferase (ALT/SGPT) 38 U/L (3-41) Alkaline Phosphatase 102 U/L (40-129) Total Creatine Kinase 23 U/L (38-174) L C-Reactive Protein, Quantitative 0.9 mg/dL (< 0.5) H Pro-B-Type Natriuretic Peptide 1261 pg/mL (0-450) H Total Protein 5.8 g/dL (6.6-8.7) L Albumin 2.7 g/dL (3.5-5.2) L Globulin 3.1 g/dL Albumin/Globulin Ratio 0.8 (1.0-2.7) L Vitamin B12 Level 691 pg/mL (211-946) Folate Pending Thyroid Stimulating Hormone (TSH) 0.487 uIU/mL (0.300-4.500) Urine Eosinophils None seen Height (Feet): 6 Height (Inches): 0.00 Weight (Pounds): 200 General Appearance: no apparent distress, alert Cardiovascular: normal rate Respiratory/Chest: normal breath sounds, no respiratory distress Abdominal Exam: site - c/d/i Lucia Johnson N.P. June 29, 2016 11:17
[2016-06-29 12:00] VITALS: BP 142/99
--- NOTE | 2016-06-29 12:21 | Diagnostic Imaging Report ---
Indication: Acute renal failure Technique: Grayscale and duplex images of the kidneys, retroperitoneum, and bladder were obtained. Comparison:None Findings: Exam is limited, due to patient body habitus and contracture. Right kidney measures 7.5 cm in length. Left kidney is poorly visualized, grossly measures 7.3 cm in length. Both kidneys demonstrate increased echogenicity. No hydronephrosis. The right kidney demonstrates multiple small cysts. Normal inferior vena cava. Bladder is empty, equivocally contains a To catheter. Bladder styles appear to be thickened. Impression: Atrophic echogenic bilateral kidneys, consistent with medical renal disease Negative for hydronephrosis Contracted bladder, likely but not definitively containing a To catheter Bladder wall thickening, may indicate cystitis or chronic bladder obstruction. May also in part be artifactual due to lack of bladder distention.
--- NOTE | 2016-06-29 15:32 | General Progress Note ---
Assessment/Plan Problem List: (1) Renal insufficiency ICD Codes: N28.9 - Disorder of kidney and ureter, unspecified SNOMED: 144409664 (2) Acute renal failure ICD Codes: N17.9 - Acute kidney failure, unspecified SNOMED: 39117102 Qualifiers: Qualified Codes: N17.9 - Acute kidney failure, unspecified (3) Acute hypernatremia ICD Codes: E87.0 - Hyperosmolality and hypernatremia SNOMED: 7416837 (4) Gastritis ICD Codes: K29.70 - Gastritis, unspecified, without bleeding SNOMED: 7848493 (5) Hypernatremia ICD Codes: E87.0 - Hyperosmolality and hypernatremia SNOMED: 50815731 (6) Hypothyroidism ICD Codes: E03.9 - Hypothyroidism, unspecified SNOMED: 76004337 (7) Hypoalbuminemia ICD Codes: E88.09 - Other disorders of plasma-protein metabolism, not elsewhere classified SNOMED: 242627394 Status: progressing Assessment/Plan nonverbal gerd hypernatremia arf on top of cri na is improving Subjective ROS Limited/Unobtainable: Yes Allergies: Coded Allergies: No Known Allergies (Unverified , 04/13/15) Objective Last 24 Hour Vital Signs Date Time Temp Pulse Resp B/P Pulse Ox O2 Delivery O2 Flow Rate FiO2 06/29/16 08:55 137/77 06/29/16 08:11 97.1 64 18 139/77 95 Room Air 06/29/16 08:00 97.1 69 18 139/77 Room Air 95 06/29/16 08:00 69 06/29/16 06:00 138/78 06/29/16 04:00 61 06/29/16 00:00 99 06/28/16 21:08 136/74 06/28/16 20:00 58 06/28/16 20:00 96.9 67 19 168/71 98 Room Air 06/28/16 18:21 58 132/75 06/28/16 16:00 97.4 60 21 132/75 96 Room Air 06/28/16 16:00 58 Intake and Output 06/28/16 06/29/16 19:00 07:00 Intake Total 1035 ml 1600 ml Output Total 1650 ml Balance -615 ml 1600 ml Intake Free Water 200 ml 400 ml IV Total 775 ml 890 ml Tube Feeding 60 ml 310 ml Output Urine Total 1650 ml # Bowel Movements 2 Laboratory Tests 06/29/16 03:55: White Blood Count 4.2L, Red Blood Count 3.20L, Hemoglobin 9.3L, Hematocrit 29.8L , Mean Corpuscular Volume 93, Mean Corpuscular Hemoglobin 29.0, Mean Corpuscular Hemoglobin Concent 31.2L, Red Cell Distribution Width 16.3H, Platelet Count 127L, Mean Platelet Volume 11.1H, Neutrophils (%) (Auto) 66.3, Lymphocytes (%) (Auto) 16.8L, Monocytes (%) (Auto) 10.1H, Eosinophils (%) (Auto ) 6.2H, Basophils (%) (Auto) 0.7, Differential Total Cells Counted 100, Neutrophils % (Manual) 58, Lymphocytes % (Manual) 24, Monocytes % (Manual) 8, Eosinophils % (Manual) 10H, Basophils % (Manual) 0, Band Neutrophils 0, Platelet Estimate DecreasedL, Platelet Morphology Normal, Hypochromasia 1+, Anisocytosis 1+, Prothrombin Time 10.7, Prothromb Time International Ratio 1.1, Activated Partial Thromboplast Time 29, Sodium Level 154H, Potassium Level 3.7, Chloride Level 118H, Carbon Dioxide Level 24, Anion Gap 12, Blood Urea Nitrogen 70H, Creatinine 2.1H, Estimat Glomerular Filtration Rate , Glucose Level 148H, Uric Acid 7.1, Calcium Level 8.8, Phosphorus Level 2.8, Magnesium Level 2.2, Iron Level 81, Total Iron Binding Capacity 178L, Percent Iron Saturation 46, Unsaturated Iron Binding 97L, Ferritin 507H, Total Bilirubin 0.4, Gamma Glutamyl Transpeptidase 9, Aspartate Amino Transf (AST/SGOT) 25, Alanine Aminotransferase (ALT/SGPT) 38, Alkaline Phosphatase 102, Total Creatine Kinase 23L, C-Reactive Protein, Quantitative 0.9H, Pro-B-Type Natriuretic Peptide 1261H , Total Protein 5.8L, Albumin 2.7L, Globulin 3.1, Albumin/Globulin Ratio 0.8L, Vitamin B12 Level 691, Folate [Pending], Thyroid Stimulating Hormone (TSH) 0.487 06/29/16 04:00: Urine Eosinophils None seen Height (Feet): 6 Height (Inches): 0.00 Weight (Pounds): 200 General Appearance: confused Neck: supple Cardiovascular: normal rate Seth Lee MD June 29, 2016 15:32
[2016-06-29 16:00] VITALS: BP 158/81
[2016-06-29] MEDS ORDERED: Famotidine 20 MG/ 2ML VIAL IVP SCH (18:00)
--- NOTE | 2016-06-29 18:40 | General Progress Note ---
Assessment/Plan Assessment/Plan Assessment: # Anemia secondary to chronic disease - no evidence of iron deficiency # Anemia secondary to kidney disease # RLE DVT hx however has recurrent GI bleed therefore no coumadin # MARCO A on CKD, baseline Cr is 1.5 # Hx of leukocytosis secondary to infection/stress-> from before resolved # Hx thrombocytopenia secondary to infection likely-> from before resolved # Distal common bile duct stone with moderate biliary ductal dilatation s/p sphincterotomy and stone removal and stent placement # Hypertension # Hypothyroidism # Altered mental status # Dehydration. # s/p TURP # Bilateral hydroureter/hydronephrosis Recommendations: - Monitor counts - Transfuse as needed - Do not recommend coumadin given hx of recurrent bleeding - Appreciate Gi consultation - Nutritional support - Supportive care - DVT ppx SCDs - Thank you Subjective Constitutional: Reports: no symptoms HEENT: Reports: no symptoms Cardiovascular: Reports: no symptoms Respiratory: Reports: no symptoms Gastrointestinal/Abdominal: Reports: no symptoms Genitourinary: Reports: no symptoms Neurologic/Psychiatric: Reports: no symptoms Endocrine: Reports: no symptoms Hematologic/Lymphatic: Reports: anemia Allergies: Coded Allergies: No Known Allergies (Unverified , 04/13/15) Subjective stable, no events reported overnight, no night sweats Objective Last 24 Hour Vital Signs Date Time Temp Pulse Resp B/P Pulse Ox O2 Delivery O2 Flow Rate FiO2 06/29/16 17:24 74 145/76 06/29/16 16:53 136/75 06/29/16 16:00 97.3 71 20 158/81 Room Air 95 06/29/16 16:00 64 06/29/16 12:00 97.2 59 18 142/99 Room Air 95 06/29/16 12:00 64 06/29/16 08:55 137/77 06/29/16 08:11 97.1 64 18 139/77 95 Room Air 06/29/16 08:00 97.1 69 18 139/77 Room Air 95 06/29/16 08:00 69 06/29/16 08:00 97.1 69 18 139/77 95 Room Air 06/29/16 06:00 138/78 06/29/16 04:00 61 06/29/16 00:00 99 06/28/16 21:08 136/74 06/28/16 20:00 58 06/28/16 20:00 96.9 67 19 168/71 98 Room Air Intake and Output 06/28/16 06/29/16 19:00 07:00 Intake Total 1035 ml 1600 ml Output Total 1650 ml Balance -615 ml 1600 ml Intake Free Water 200 ml 400 ml IV Total 775 ml 890 ml Tube Feeding 60 ml 310 ml Output Urine Total 1650 ml # Bowel Movements 2 Laboratory Tests 06/29/16 03:55: White Blood Count 4.2L, Red Blood Count 3.20L, Hemoglobin 9.3L, Hematocrit 29.8L , Mean Corpuscular Volume 93, Mean Corpuscular Hemoglobin 29.0, Mean Corpuscular Hemoglobin Concent 31.2L, Red Cell Distribution Width 16.3H, Platelet Count 127L, Mean Platelet Volume 11.1H, Neutrophils (%) (Auto) 66.3, Lymphocytes (%) (Auto) 16.8L, Monocytes (%) (Auto) 10.1H, Eosinophils (%) (Auto ) 6.2H, Basophils (%) (Auto) 0.7, Differential Total Cells Counted 100, Neutrophils % (Manual) 58, Lymphocytes % (Manual) 24, Monocytes % (Manual) 8, Eosinophils % (Manual) 10H, Basophils % (Manual) 0, Band Neutrophils 0, Platelet Estimate DecreasedL, Platelet Morphology Normal, Hypochromasia 1+, Anisocytosis 1+, Prothrombin Time 10.7, Prothromb Time International Ratio 1.1, Activated Partial Thromboplast Time 29, Sodium Level 154H, Potassium Level 3.7, Chloride Level 118H, Carbon Dioxide Level 24, Anion Gap 12, Blood Urea Nitrogen 70H, Creatinine 2.1H, Estimat Glomerular Filtration Rate , Glucose Level 148H, Uric Acid 7.1, Calcium Level 8.8, Phosphorus Level 2.8, Magnesium Level 2.2, Iron Level 81, Total Iron Binding Capacity 178L, Percent Iron Saturation 46, Unsaturated Iron Binding 97L, Ferritin 507H, Total Bilirubin 0.4, Gamma Glutamyl Transpeptidase 9, Aspartate Amino Transf (AST/SGOT) 25, Alanine Aminotransferase (ALT/SGPT) 38, Alkaline Phosphatase 102, Total Creatine Kinase 23L, C-Reactive Protein, Quantitative 0.9H, Pro-B-Type Natriuretic Peptide 1261H , Total Protein 5.8L, Albumin 2.7L, Globulin 3.1, Albumin/Globulin Ratio 0.8L, Vitamin B12 Level 691, Folate [Pending], Thyroid Stimulating Hormone (TSH) 0.487 06/29/16 04:00: Urine Eosinophils None seen Height (Feet): 6 Height (Inches): 0.00 Weight (Pounds): 200 General Appearance: no apparent distress EENT: TMs normal Neck: normal inspection Cardiovascular: regular rhythm Respiratory/Chest: normal breath sounds Abdomen: non tender Extremities: non-tender Edema: 1+ Leg (L), 1+ Leg (R) Edema: mild edema Neurologic: alert Skin: warm/dry Esdras Moraes June 29, 2016 18:40
[2016-06-29 20:00] VITALS: BP 118/80
--- NOTE | 2016-06-29 20:58 | History and Physical Report ---
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 He is brought in because of abnormal labs. Mainly, the patient had basically severe hyponatremia, could be due to most likely dehydration. The patient also has had hyponatremia, hypochloremia as well as acute renal failure. The patient has chronic renal insufficiency. Baseline creatinine is around 1.7. The patient had history of DVT, however, we had to stop the Coumadin due to subdural hematoma and coagulopathy. The patient is nonverbal and severely demented, which is his baseline. PAST MEDICAL HISTORY: History of DVT, history of gallstones, pancreatitis, advanced dementia, history of coagulopathy, history of rash, history of chronic renal insufficiency, malnutrition, GERD, hypothyroidism, history of elevated CEA, constipation, advanced dementia, iron deficiency anemia, BPH, hypertension, seizure disorder, hypothyroidism, and hyperlipidemia. PAST SURGICAL HISTORY: PEG. MEDICATIONS: Tylenol, cranberry juice, Depakote, Colace, benazepril, ferrous sulfate, Lasix, hydralazine, Keppra, Levoxyl, losartan, lorazepam, citrulline, and simvastatin, and Flomax. ALLERGIES: No known allergies. SOCIAL HISTORY: Unable to obtain. FAMILY HISTORY: Unable to obtain. REVIEW OF SYSTEMS: Unable to obtain. PHYSICAL EXAMINATION: VITAL SIGNS: Temperature 99.1 degrees, pulse is 69, and blood pressure 139/77. HEENT: PERRLA. NECK: Supple. No lymphadenopathy. CHEST: Clear to auscultation. GI: Soft, nontender, and nondistended. EXTREMITIES: No edema. Reflexes are equal on both sides. The patient is responsive to noxious stimuli and nonverbal. Oriented x0. LABORATORY DATA: Sodium 161, potassium of 4.3, BUN of 87, creatinine 2.4, and glucose 91. Albumin of 2.9. ASSESSMENT: 1. Severe hyponatremia. 2. Dehydration. 3. Acute renal failure on top of chronic renal failure. 4. The patient has a history of deep venous thrombosis. 5. The patient has a history of agitation. PLAN: I have asked Dr. Morgan, Dr. Adkins, Dr. Moraes, and Dr. Daigle to see the patient for the malnutrition as well as above-mentioned diagnoses and treatment. Ali Gonzalo Lee DR: SHANTELL JOB#: [id number] CC:
[2016-06-29] MEDS: OLANZapine 2.5mg tab ORAL SCH (21:18)
[2016-06-30] VITALS: BP 116/50
[2016-06-30 04:00] VITALS: BP 138/80
[2016-06-30] MEDS: HydrALAZINE 25mg tab ORAL SCH ×3 (05:48→20:54)
[2016-06-30] MEDS ORDERED: Levothyroxine 25mcg tab ORAL SCH (06:30)
[2016-06-30 08:00] VITALS: BP 123/61
[2016-06-30 08:15] LABS: MEAN CORPUSCULAR HEMOGLOBIN 31.5 PG (27.0-31.0); MEAN CORPUSCULAR HGB CONC 32.9 G/DL (32.0-36.0); MEAN CORPUSCULAR VOLUME 96 FL (80-99); MEAN PLATELET VOLUME 10.9 FL (6.5-10.1); PLATELET COUNT 98 K/UL (150-450); RED BLOOD COUNT 2.82 M/UL (4.70-6.10); RED CELL DISTRIBUTION WIDTH 16.3 % (11.6-14.8); WHITE BLOOD COUNT 4.3 K/UL (4.8-10.8)
[2016-06-30 08:18] LABS: ALANINE AMINOTRANSFERASE 27 U/L (3-41); ALBUMIN/GLOBULIN RATIO 0.9 (1.0-2.7); ANION GAP 11 (5-15); ASPARTATE AMINO TRANSFERASE 19 U/L (5-40); CALCIUM 8.6 mg/dL (8.6-10.2); CARBON DIOXIDE 27 mEQ/L (20-30); CHLORIDE 111 mEQ/L (98-107); CREATININE 2.3 mg/dL (0.7-1.2); HEMOLYSIS 1; MAGNESIUM 1.9 mg/dL (1.7-2.5); PHOSPHORUS 2.9 mg/dL (2.5-4.8); POTASSIUM 3.7 mEQ/L (3.4-4.9); SODIUM 149 mEQ/L (135-145); TOTAL PROTEIN 5.6 g/dL (6.6-8.7); URIC ACID 6.3 mg/dL (3.0-7.5)
[2016-06-30] MEDS: Docusate 250mg cap ORAL SCH (08:55)
[2016-06-30 09:05] LABS: ANISOCYTOSIS 1+; BAND NEUTROPHILS % (MANUAL) 0 % (0-8); BASOPHILS % (MANUAL) 0 % (0-2); EOSINOPHILS % (MANUAL) 6 % (0-3); HYPOCHROMASIA 2+; LYMPHOCYTES % (MANUAL) 24 % (20-45); NEUTROPHILS % (MANUAL) 61 % (45-75); PLATELET ESTIMATE DECREASED; PLATELET MORPHOLOGY NORMAL; TOTAL CELLS COUNTED 100
--- NOTE | 2016-06-30 10:19 | General Progress Note ---
Assessment/Plan Status: stable Assessment/Plan status: # MARCO A on CKD, baseline Cr is 1.5 # Dehydration. 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 # Distal common bile duct stone with moderate biliary ductal dilatation s/p sphincterotomy and stone removal and stent placement # Hypertension # Hypothyroidism Plan: UA- IV to D5- down the rate Check TSH : low : DC synthroid CARLEY kidney: Atrophic echogenic bilateral kidneys, consistent with medical renal disease Negative for hydronephrosis Monitor renal parameters and electrolytes- avoid nephrotoxics Subjective ROS Limited/Unobtainable: No Allergies: Coded Allergies: No Known Allergies (Unverified , 04/13/15) Objective Last 24 Hour Vital Signs Date Time Temp Pulse Resp B/P Pulse Ox O2 Delivery O2 Flow Rate FiO2 06/30/16 08:55 62 123/61 06/30/16 08:00 97.7 62 17 123/61 97 Room Air 06/30/16 08:00 64 06/30/16 05:48 138/80 06/30/16 04:00 97.7 93 20 138/80 98 Room Air 06/30/16 04:00 111 06/30/16 00:00 97.4 64 19 116/50 96 Room Air 06/30/16 00:00 72 06/29/16 21:19 120/60 06/29/16 20:00 68 06/29/16 20:00 97.6 61 20 118/80 97 Room Air 06/29/16 17:24 74 145/76 06/29/16 16:53 136/75 06/29/16 16:00 97.3 71 20 158/81 Room Air 95 06/29/16 16:00 64 06/29/16 12:00 97.2 59 18 142/99 Room Air 95 06/29/16 12:00 64 Intake and Output 06/29/16 06/30/16 19:00 07:00 Intake Total 1000 ml 1100 ml Output Total 700 ml 500 ml Balance 300 ml 600 ml Intake Free Water 150 ml IV Total 800 ml 1100 ml Tube Feeding 50 ml Output Urine Total 700 ml 500 ml # Bowel Movements 2 Laboratory Tests 06/30/16 06:00: Urine Eosinophils [Pending], Urine Random Sodium 35 06/30/16 06:45: White Blood Count 4.3L, Red Blood Count 2.82L, Hemoglobin 8.9L, Hematocrit 27.0L , Mean Corpuscular Volume 96, Mean Corpuscular Hemoglobin 31.5H, Mean Corpuscular Hemoglobin Concent 32.9, Red Cell Distribution Width 16.3H, Platelet Count 98L, Mean Platelet Volume 10.9H, Neutrophils (%) (Auto) , Lymphocytes (%) (Auto) , Monocytes (%) (Auto) , Eosinophils (%) (Auto) , Basophils (%) (Auto) , Differential Total Cells Counted 100, Neutrophils % ( Manual) 61, Lymphocytes % (Manual) 24, Monocytes % (Manual) 9, Eosinophils % ( Manual) 6H, Basophils % (Manual) 0, Band Neutrophils 0, Platelet Estimate DecreasedL, Platelet Morphology Normal, Hypochromasia 2+, Anisocytosis 1+, Sodium Level 149H, Potassium Level 3.7, Chloride Level 111H, Carbon Dioxide Level 27, Anion Gap 11, Blood Urea Nitrogen 63H, Creatinine 2.3H, Estimat Glomerular Filtration Rate , Glucose Level 94, Uric Acid 6.3, Calcium Level 8.6 , Phosphorus Level 2.9, Magnesium Level 1.9, Total Bilirubin 0.5, Aspartate Amino Transf (AST/SGOT) 19, Alanine Aminotransferase (ALT/SGPT) 27, Alkaline Phosphatase 101, Total Protein 5.6L, Albumin 2.7L, Globulin 2.9, Albumin/ Globulin Ratio 0.9L Height (Feet): 6 Height (Inches): 0.00 Weight (Pounds): 200 General Appearance: no apparent distress Cardiovascular: normal rate Respiratory/Chest: decreased breath sounds Objective PE not changed TAWANNA ONEIL June 30, 2016 10:19
--- NOTE | 2016-06-30 11:11 | GI Progress Note ---
Assessment/Plan Problems: (1) Elevated CEA ICD Codes: R97.0 - Elevated carcinoembryonic antigen [CEA] SNOMED: 64008927, 666755782 (2) Encephalopathy acute ICD Codes: G93.40 - Encephalopathy acute SNOMED: 8514973 (3) Abdominal pain ICD Codes: R10.9 - Unspecified abdominal pain SNOMED: 19582672 (4) Hypoalbuminemia ICD Codes: E88.09 - Other disorders of plasma-protein metabolism, not elsewhere classified SNOMED: 996379126 (5) Gastritis ICD Codes: K29.70 - Gastritis, unspecified, without bleeding SNOMED: 0872066 (6) Anemia ICD Codes: D64.9 - Anemia, unspecified SNOMED: 885927367 Qualifiers: Qualified Codes: D64.9 - Anemia, unspecified Status: stable Status Narrative Discussed with Dr. Daigle. Assessment/Plan OB stool uncollected monitor H&H, transfuse prn H2B GI prophylaxis GTFs per dietary GT site care daily/prn electrolyte correction bowel regime fu labs Subjective Subjective limited Objective Last 24 Hour Vital Signs Date Time Temp Pulse Resp B/P Pulse Ox O2 Delivery O2 Flow Rate FiO2 06/30/16 08:55 62 123/61 06/30/16 08:00 97.7 62 17 123/61 97 Room Air 06/30/16 08:00 64 06/30/16 05:48 138/80 06/30/16 04:00 97.7 93 20 138/80 98 Room Air 06/30/16 04:00 111 06/30/16 00:00 97.4 64 19 116/50 96 Room Air 06/30/16 00:00 72 06/29/16 21:19 120/60 06/29/16 20:00 68 06/29/16 20:00 97.6 61 20 118/80 97 Room Air 06/29/16 17:24 74 145/76 06/29/16 16:53 136/75 06/29/16 16:00 97.3 71 20 158/81 Room Air 95 06/29/16 16:00 64 06/29/16 12:00 97.2 59 18 142/99 Room Air 95 06/29/16 12:00 64 Intake and Output 06/29/16 06/30/16 19:00 07:00 Intake Total 1000 ml 1100 ml Output Total 700 ml 500 ml Balance 300 ml 600 ml Intake Free Water 150 ml IV Total 800 ml 1100 ml Tube Feeding 50 ml Output Urine Total 700 ml 500 ml # Bowel Movements 2 Laboratory Tests Test 06/30/16 06:00 06/30/16 06:45 Urine Eosinophils Positive Urine Random Sodium 35 mmol/L White Blood Count 4.3 K/UL (4.8-10.8) L Red Blood Count 2.82 M/UL (4.70-6.10) L Hemoglobin 8.9 G/DL (14.2-18.0) L Hematocrit 27.0 % (42.0-52.0) L Mean Corpuscular Volume 96 FL (80-99) Mean Corpuscular Hemoglobin 31.5 PG (27.0-31.0) H Mean Corpuscular Hemoglobin Concent 32.9 G/DL (32.0-36.0) Red Cell Distribution Width 16.3 % (11.6-14.8) H Platelet Count 98 K/UL (150-450) L Mean Platelet Volume 10.9 FL (6.5-10.1) H Neutrophils (%) (Auto) % (45.0-75.0) Lymphocytes (%) (Auto) % (20.0-45.0) Monocytes (%) (Auto) % (1.0-10.0) Eosinophils (%) (Auto) % (0.0-3.0) Basophils (%) (Auto) % (0.0-2.0) Differential Total Cells Counted 100 Neutrophils % (Manual) 61 % (45-75) Lymphocytes % (Manual) 24 % (20-45) Monocytes % (Manual) 9 % (1-10) Eosinophils % (Manual) 6 % (0-3) H Basophils % (Manual) 0 % (0-2) Band Neutrophils 0 % (0-8) Platelet Estimate Decreased L Platelet Morphology Normal Hypochromasia 2+ Anisocytosis 1+ Sodium Level 149 mEQ/L (135-145) H Potassium Level 3.7 mEQ/L (3.4-4.9) Chloride Level 111 mEQ/L (98-107) H Carbon Dioxide Level 27 mEQ/L (20-30) Anion Gap 11 (5-15) Blood Urea Nitrogen 63 mg/dL (7-23) H Creatinine 2.3 mg/dL (0.7-1.2) H Estimat Glomerular Filtration Rate mL/min (>60) Glucose Level 94 mg/dL (74-106) Uric Acid 6.3 mg/dL (3.0-7.5) Calcium Level 8.6 mg/dL (8.6-10.2) Phosphorus Level 2.9 mg/dL (2.5-4.8) Magnesium Level 1.9 mg/dL (1.7-2.5) Total Bilirubin 0.5 mg/dL (0.0-1.2) Aspartate Amino Transf (AST/SGOT) 19 U/L (5-40) Alanine Aminotransferase (ALT/SGPT) 27 U/L (3-41) Alkaline Phosphatase 101 U/L (40-129) Total Protein 5.6 g/dL (6.6-8.7) L Albumin 2.7 g/dL (3.5-5.2) L Globulin 2.9 g/dL Albumin/Globulin Ratio 0.9 (1.0-2.7) L Height (Feet): 6 Height (Inches): 0.00 Weight (Pounds): 200 General Appearance: no apparent distress Cardiovascular: regular rhythm Respiratory/Chest: normal breath sounds Abdominal Exam: site - c/d/i Lucia Johnson N.P. June 30, 2016 11:11
[2016-06-30 12:00] VITALS: BP 119/75
--- NOTE | 2016-06-30 12:45 | General Progress Note ---
Assessment/Plan Problem List: (1) Renal insufficiency ICD Codes: N28.9 - Disorder of kidney and ureter, unspecified SNOMED: 948432567 (2) Acute renal failure ICD Codes: N17.9 - Acute kidney failure, unspecified SNOMED: 78674374 Qualifiers: Qualified Codes: N17.9 - Acute kidney failure, unspecified (3) Acute hypernatremia ICD Codes: E87.0 - Hyperosmolality and hypernatremia SNOMED: 8562288 (4) Gastritis ICD Codes: K29.70 - Gastritis, unspecified, without bleeding SNOMED: 9471880 (5) Hypernatremia ICD Codes: E87.0 - Hyperosmolality and hypernatremia SNOMED: 77843415 (6) Hypothyroidism ICD Codes: E03.9 - Hypothyroidism, unspecified SNOMED: 97411021 (7) Hypoalbuminemia ICD Codes: E88.09 - Other disorders of plasma-protein metabolism, not elsewhere classified SNOMED: 796980896 Status: progressing Assessment/Plan afebrile vitals stable hypernatremia improving arf dementia reviewed chart and labs Subjective ROS Limited/Unobtainable: Yes Allergies: Coded Allergies: No Known Allergies (Unverified , 04/13/15) Objective Last 24 Hour Vital Signs Date Time Temp Pulse Resp B/P Pulse Ox O2 Delivery O2 Flow Rate FiO2 06/30/16 12:00 97.4 94 18 119/75 94 Room Air 06/30/16 08:55 62 123/61 06/30/16 08:00 97.7 62 17 123/61 97 Room Air 06/30/16 08:00 64 06/30/16 05:48 138/80 06/30/16 04:00 97.7 93 20 138/80 98 Room Air 06/30/16 04:00 111 06/30/16 00:00 97.4 64 19 116/50 96 Room Air 06/30/16 00:00 72 06/29/16 21:19 120/60 06/29/16 20:00 68 06/29/16 20:00 97.6 61 20 118/80 97 Room Air 06/29/16 17:24 74 145/76 06/29/16 16:53 136/75 06/29/16 16:00 97.3 71 20 158/81 Room Air 95 06/29/16 16:00 64 Intake and Output 06/29/16 06/30/16 19:00 07:00 Intake Total 1000 ml 1100 ml Output Total 700 ml 500 ml Balance 300 ml 600 ml Intake Free Water 150 ml IV Total 800 ml 1100 ml Tube Feeding 50 ml Output Urine Total 700 ml 500 ml # Bowel Movements 2 Laboratory Tests 06/30/16 06:00: Urine Eosinophils Positive, Urine Random Sodium 35 06/30/16 06:45: White Blood Count 4.3L, Red Blood Count 2.82L, Hemoglobin 8.9L, Hematocrit 27.0L , Mean Corpuscular Volume 96, Mean Corpuscular Hemoglobin 31.5H, Mean Corpuscular Hemoglobin Concent 32.9, Red Cell Distribution Width 16.3H, Platelet Count 98L, Mean Platelet Volume 10.9H, Neutrophils (%) (Auto) , Lymphocytes (%) (Auto) , Monocytes (%) (Auto) , Eosinophils (%) (Auto) , Basophils (%) (Auto) , Differential Total Cells Counted 100, Neutrophils % ( Manual) 61, Lymphocytes % (Manual) 24, Monocytes % (Manual) 9, Eosinophils % ( Manual) 6H, Basophils % (Manual) 0, Band Neutrophils 0, Platelet Estimate DecreasedL, Platelet Morphology Normal, Hypochromasia 2+, Anisocytosis 1+, Sodium Level 149H, Potassium Level 3.7, Chloride Level 111H, Carbon Dioxide Level 27, Anion Gap 11, Blood Urea Nitrogen 63H, Creatinine 2.3H, Estimat Glomerular Filtration Rate , Glucose Level 94, Uric Acid 6.3, Calcium Level 8.6 , Phosphorus Level 2.9, Magnesium Level 1.9, Total Bilirubin 0.5, Aspartate Amino Transf (AST/SGOT) 19, Alanine Aminotransferase (ALT/SGPT) 27, Alkaline Phosphatase 101, Total Protein 5.6L, Albumin 2.7L, Globulin 2.9, Albumin/ Globulin Ratio 0.9L Height (Feet): 6 Height (Inches): 0.00 Weight (Pounds): 200 Cardiovascular: normal rate Respiratory/Chest: lungs clear Abdomen: non tender Seth Lee MD June 30, 2016 12:45
--- NOTE | 2016-06-30 15:09 | Diagnostic Imaging Report ---
APPROVED REPORT CPT Code: 92955 Present Symptoms DVT of Lower Extremity: Bilateral Comments: Hx acute DVT right leg; chronic non-occlusive DVT left leg, 07/07/2015 RIGHT LEG: Venous imaging reveals acute, near-occlusive thrombus in the common femoral vein, and acute, occlusive thrombus in the superficial femoral vein. Imaging also reveals chronic thrombus in the popliteal veins. The popliteal vein is patent. There is acute, occlusive thrombus in the posterior tibial veins. The anterior tibial veins are patent. The greater saphenous vein is within normal limits. LEFT LEG: Venous imaging reveals acute, occlusive thrombus in the superficial femoral vein. Imaging also reveals chronic thrombus in the common femoral and popliteal veins. The popliteal vein is patent. The calf veins are patent. The greater saphenous vein is within normal limits. DANTE Brooks was informed of abnormal results at 16:53 hrs.
[2016-06-30 16:00] VITALS: BP 128/68
[2016-06-30] MEDS: Docusate 100mg cap ORAL SCH (17:52)
[2016-06-30] MEDS ORDERED: Tubing IV Secondary IV ONE (18:09)
[2016-06-30] MEDS ORDERED: NS 275ml ONE (18:09)
[2016-06-30 20:25] VITALS: BP 129/67
[2016-06-30] MEDS: OLANZapine 2.5mg tab ORAL SCH (20:54)
[2016-06-30] MEDS: Miralax 17gm pkt ORAL SCH (20:54)
[2016-07-01] VITALS: BP 134/65
[2016-07-01 04:00] VITALS: BP 127/60
[2016-07-01] MEDS: HydrALAZINE 25mg tab ORAL SCH ×3 (06:08→20:59)
[2016-07-01 08:34] LABS: ANION GAP 16 (5-15); CALCIUM 8.9 mg/dL (8.6-10.2); CARBON DIOXIDE 21 mEQ/L (20-30); CHLORIDE 109 mEQ/L (98-107); CREATININE 2.3 mg/dL (0.7-1.2); HEMOLYSIS 27; POTASSIUM 4.7 mEQ/L (3.4-4.9); SODIUM 146 mEQ/L (135-145)
[2016-07-01 08:41] VITALS: BP 165/71
[2016-07-01] MEDS: Docusate 100mg cap ORAL SCH ×2 (09:19→17:45)
--- NOTE | 2016-07-01 10:12 | GI Progress Note ---
Assessment/Plan Problems: (1) Elevated CEA ICD Codes: R97.0 - Elevated carcinoembryonic antigen [CEA] SNOMED: 88827028, 075085033 (2) Encephalopathy acute ICD Codes: G93.40 - Encephalopathy acute SNOMED: 5134453 (3) Abdominal pain ICD Codes: R10.9 - Unspecified abdominal pain SNOMED: 18249888 (4) Hypoalbuminemia ICD Codes: E88.09 - Other disorders of plasma-protein metabolism, not elsewhere classified SNOMED: 823467140 (5) Gastritis ICD Codes: K29.70 - Gastritis, unspecified, without bleeding SNOMED: 3911436 (6) Anemia ICD Codes: D64.9 - Anemia, unspecified SNOMED: 344022301 Qualifiers: Qualified Codes: D64.9 - Anemia, unspecified Status: stable, progressing Status Narrative Discussed with Dr. Daigle. Assessment/Plan OB stool uncollected monitor H&H, transfuse prn H2B GI prophylaxis GTFs per dietary GT site care daily/prn electrolyte correction bowel regime fu labs Subjective Subjective limited Objective Last 24 Hour Vital Signs Date Time Temp Pulse Resp B/P Pulse Ox O2 Delivery O2 Flow Rate FiO2 07/01/16 09:20 82 165/71 07/01/16 08:41 97.2 82 20 165/71 98 Room Air 07/01/16 06:08 127/60 07/01/16 04:00 67 07/01/16 04:00 98.0 68 20 127/60 96 Room Air 07/01/16 00:00 97.3 65 20 134/65 96 Nasal Cannula 2.0 07/01/16 00:00 75 06/30/16 20:54 139/67 06/30/16 20:25 98.1 77 20 129/67 94 Room Air 06/30/16 20:00 74 06/30/16 17:52 65 128/68 06/30/16 16:00 97.3 65 18 128/68 95 Room Air 06/30/16 16:00 68 06/30/16 15:05 119/75 06/30/16 12:00 64 06/30/16 12:00 97.4 94 18 119/75 94 Room Air Intake and Output 06/30/16 07/01/16 19:00 07:00 Intake Total 1200 ml 1300 ml Output Total 1 ml 3000 ml Balance 1199 ml -1700 ml Intake Free Water 150 ml 400 ml IV Total 360 ml 240 ml Tube Feeding 690 ml 660 ml Output Urine Total 3000 ml Stool Total 1 ml # Voids 1 Laboratory Tests Test 07/01/16 05:35 Sodium Level 146 mEQ/L (135-145) H Potassium Level 4.7 mEQ/L (3.4-4.9) Chloride Level 109 mEQ/L (98-107) H Carbon Dioxide Level 21 mEQ/L (20-30) Anion Gap 16 (5-15) H Blood Urea Nitrogen 61 mg/dL (7-23) H Creatinine 2.3 mg/dL (0.7-1.2) H Estimat Glomerular Filtration Rate mL/min (>60) Glucose Level 69 mg/dL (74-106) L Calcium Level 8.9 mg/dL (8.6-10.2) Height (Feet): 6 Height (Inches): 0.00 Weight (Pounds): 200 General Appearance: no apparent distress, alert Cardiovascular: normal rate Respiratory/Chest: normal breath sounds, no respiratory distress Abdominal Exam: normal bowel sounds, non tender, soft, GT site - c/d/i Lucia Johnson N.P. July 01, 2016 10:12
[2016-07-01 10:30] LABS: BASOPHILS % (AUTO) 0.5 % (0.0-2.0); EOSINOPHILS % (AUTO) 5.8 % (0.0-3.0); LYMPHOCYTES % (AUTO) 18.8 % (20.0-45.0); MEAN CORPUSCULAR HEMOGLOBIN 29.2 PG (27.0-31.0); MEAN CORPUSCULAR HGB CONC 31.9 G/DL (32.0-36.0); MEAN CORPUSCULAR VOLUME 92 FL (80-99); MEAN PLATELET VOLUME 10.4 FL (6.5-10.1); MONOCYTES % (AUTO) 9.3 % (1.0-10.0); NEUTROPHILS % (AUTO) 65.6 % (45.0-75.0); PLATELET COUNT 115 K/UL (150-450); RED BLOOD COUNT 3.13 M/UL (4.70-6.10); RED CELL DISTRIBUTION WIDTH 16.1 % (11.6-14.8); WHITE BLOOD COUNT 4.2 K/UL (4.8-10.8)
[2016-07-01 12:01] VITALS: BP 101/63
--- NOTE | 2016-07-01 15:35 | General Progress Note ---
Assessment/Plan Status: unchanged Status Narrative Cr 2.3 Assessment/Plan status: # MARCO A on CKD, baseline Cr is 1.5 # Dehydration. 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 # Distal common bile duct stone with moderate biliary ductal dilatation s/p sphincterotomy and stone removal and stent placement # Hypertension # Hypothyroidism Plan: UA- IV to D5- down the rate Check TSH : low : DC synthroid CARLEY kidney: Atrophic echogenic bilateral kidneys, consistent with medical renal disease Negative for hydronephrosis Monitor renal parameters and electrolytes- avoid nephrotoxics Subjective ROS Limited/Unobtainable: No Constitutional: Reports: malaise Allergies: Coded Allergies: No Known Allergies (Unverified , 04/13/15) Objective Last 24 Hour Vital Signs Date Time Temp Pulse Resp B/P Pulse Ox O2 Delivery O2 Flow Rate FiO2 07/01/16 14:00 101/63 07/01/16 12:01 97.5 63 20 101/63 97 Room Air 07/01/16 12:00 61 07/01/16 09:20 82 165/71 07/01/16 08:41 97.2 82 20 165/71 98 Room Air 07/01/16 08:00 88 07/01/16 06:08 127/60 07/01/16 04:00 67 07/01/16 04:00 98.0 68 20 127/60 96 Room Air 07/01/16 00:00 97.3 65 20 134/65 96 Nasal Cannula 2.0 07/01/16 00:00 75 06/30/16 20:54 139/67 06/30/16 20:25 98.1 77 20 129/67 94 Room Air 06/30/16 20:00 74 06/30/16 17:52 65 128/68 06/30/16 16:00 97.3 65 18 128/68 95 Room Air 06/30/16 16:00 68 Intake and Output 06/30/16 07/01/16 19:00 07:00 Intake Total 1200 ml 1300 ml Output Total 1 ml 3000 ml Balance 1199 ml -1700 ml Intake Free Water 150 ml 400 ml IV Total 360 ml 240 ml Tube Feeding 690 ml 660 ml Output Urine Total 3000 ml Stool Total 1 ml # Voids 1 Laboratory Tests 07/01/16 05:35: Sodium Level 146H, Potassium Level 4.7, Chloride Level 109H, Carbon Dioxide Level 21, Anion Gap 16H, Blood Urea Nitrogen 61H, Creatinine 2.3H, Estimat Glomerular Filtration Rate , Glucose Level 69L, Calcium Level 8.9 07/01/16 10:15: White Blood Count 4.2L, Red Blood Count 3.13L, Hemoglobin 9.1L, Hematocrit 28.7L , Mean Corpuscular Volume 92, Mean Corpuscular Hemoglobin 29.2, Mean Corpuscular Hemoglobin Concent 31.9L, Red Cell Distribution Width 16.1H, Platelet Count 115L, Mean Platelet Volume 10.4H, Neutrophils (%) (Auto) 65.6, Lymphocytes (%) (Auto) 18.8L, Monocytes (%) (Auto) 9.3, Eosinophils (%) (Auto) 5.8H, Basophils (%) (Auto) 0.5 07/01/16 10:20: Urine Eosinophils Rare Height (Feet): 6 Height (Inches): 0.00 Weight (Pounds): 200 General Appearance: no apparent distress, lethargic Objective PE not changed TAWANNA ONEIL July 01, 2016 15:35
[2016-07-01 16:08] VITALS: BP 98/53
--- NOTE | 2016-07-01 16:26 | General Progress Note ---
Assessment/Plan Problem List: (1) Renal insufficiency ICD Codes: N28.9 - Disorder of kidney and ureter, unspecified SNOMED: 120817173 (2) Acute renal failure ICD Codes: N17.9 - Acute kidney failure, unspecified SNOMED: 30103830 Qualifiers: Qualified Codes: N17.9 - Acute kidney failure, unspecified (3) Acute hypernatremia ICD Codes: E87.0 - Hyperosmolality and hypernatremia SNOMED: 5367557 (4) Gastritis ICD Codes: K29.70 - Gastritis, unspecified, without bleeding SNOMED: 1006625 (5) Hypernatremia ICD Codes: E87.0 - Hyperosmolality and hypernatremia SNOMED: 54039240 (6) Hypothyroidism ICD Codes: E03.9 - Hypothyroidism, unspecified SNOMED: 00272867 (7) Hypoalbuminemia ICD Codes: E88.09 - Other disorders of plasma-protein metabolism, not elsewhere classified SNOMED: 896760139 Status: progressing Assessment/Plan lyte abnormality arf is improving reviewed chart and meds reviewed chart and labs Subjective ROS Limited/Unobtainable: Yes Allergies: Coded Allergies: No Known Allergies (Unverified , 04/13/15) Objective Last 24 Hour Vital Signs Date Time Temp Pulse Resp B/P Pulse Ox O2 Delivery O2 Flow Rate FiO2 07/01/16 16:08 97.2 55 20 98/53 95 Room Air 07/01/16 14:00 101/63 07/01/16 12:01 97.5 63 20 101/63 97 Room Air 07/01/16 12:00 61 07/01/16 09:20 82 165/71 07/01/16 08:41 97.2 82 20 165/71 98 Room Air 07/01/16 08:00 88 07/01/16 06:08 127/60 07/01/16 04:00 67 07/01/16 04:00 98.0 68 20 127/60 96 Room Air 07/01/16 00:00 97.3 65 20 134/65 96 Nasal Cannula 2.0 07/01/16 00:00 75 06/30/16 20:54 139/67 06/30/16 20:25 98.1 77 20 129/67 94 Room Air 06/30/16 20:00 74 06/30/16 17:52 65 128/68 Intake and Output 06/30/16 07/01/16 19:00 07:00 Intake Total 1200 ml 1300 ml Output Total 1 ml 3000 ml Balance 1199 ml -1700 ml Intake Free Water 150 ml 400 ml IV Total 360 ml 240 ml Tube Feeding 690 ml 660 ml Output Urine Total 3000 ml Stool Total 1 ml # Voids 1 Laboratory Tests 07/01/16 05:35: Sodium Level 146H, Potassium Level 4.7, Chloride Level 109H, Carbon Dioxide Level 21, Anion Gap 16H, Blood Urea Nitrogen 61H, Creatinine 2.3H, Estimat Glomerular Filtration Rate , Glucose Level 69L, Calcium Level 8.9 07/01/16 10:15: White Blood Count 4.2L, Red Blood Count 3.13L, Hemoglobin 9.1L, Hematocrit 28.7L , Mean Corpuscular Volume 92, Mean Corpuscular Hemoglobin 29.2, Mean Corpuscular Hemoglobin Concent 31.9L, Red Cell Distribution Width 16.1H, Platelet Count 115L, Mean Platelet Volume 10.4H, Neutrophils (%) (Auto) 65.6, Lymphocytes (%) (Auto) 18.8L, Monocytes (%) (Auto) 9.3, Eosinophils (%) (Auto) 5.8H, Basophils (%) (Auto) 0.5 07/01/16 10:20: Urine Eosinophils Rare Height (Feet): 6 Height (Inches): 0.00 Weight (Pounds): 200 Neck: supple Cardiovascular: normal rate Respiratory/Chest: lungs clear Abdomen: soft Seth Lee MD July 01, 2016 16:26
--- NOTE | 2016-07-01 16:56 | General Progress Note ---
Assessment/Plan Assessment/Plan Assessment: # Anemia secondary to chronic disease - no evidence of iron deficiency # Anemia secondary to kidney disease # RLE DVT hx however has recurrent GI bleed therefore no coumadin # MARCO A on CKD, baseline Cr is 1.5 # Hx of leukocytosis secondary to infection/stress-> from before resolved # Hx thrombocytopenia secondary to infection likely-> from before resolved # Distal common bile duct stone with moderate biliary ductal dilatation s/p sphincterotomy and stone removal and stent placement # Hypertension # Hypothyroidism # Altered mental status # Dehydration. # s/p TURP # Bilateral hydroureter/hydronephrosis Recommendations: - Monitor counts - Transfuse as needed - Do not recommend coumadin given hx of recurrent bleeding - Appreciate Gi consultation - Nutritional support - Supportive care - DVT ppx SCDs - Thank you Subjective Constitutional: Reports: no symptoms HEENT: Reports: no symptoms Cardiovascular: Reports: no symptoms Respiratory: Reports: no symptoms Gastrointestinal/Abdominal: Reports: no symptoms Genitourinary: Reports: no symptoms Neurologic/Psychiatric: Reports: no symptoms Endocrine: Reports: no symptoms Hematologic/Lymphatic: Reports: anemia Allergies: Coded Allergies: No Known Allergies (Unverified , 04/13/15) Subjective stable, no events reported overnight Objective Last 24 Hour Vital Signs Date Time Temp Pulse Resp B/P Pulse Ox O2 Delivery O2 Flow Rate FiO2 07/01/16 16:08 97.2 55 20 98/53 95 Room Air 07/01/16 14:00 101/63 07/01/16 12:01 97.5 63 20 101/63 97 Room Air 07/01/16 12:00 61 07/01/16 09:20 82 165/71 07/01/16 08:41 97.2 82 20 165/71 98 Room Air 07/01/16 08:00 88 07/01/16 06:08 127/60 07/01/16 04:00 67 07/01/16 04:00 98.0 68 20 127/60 96 Room Air 07/01/16 00:00 97.3 65 20 134/65 96 Nasal Cannula 2.0 07/01/16 00:00 75 06/30/16 20:54 139/67 06/30/16 20:25 98.1 77 20 129/67 94 Room Air 06/30/16 20:00 74 06/30/16 17:52 65 128/68 Intake and Output 06/30/16 07/01/16 19:00 07:00 Intake Total 1200 ml 1300 ml Output Total 1 ml 3000 ml Balance 1199 ml -1700 ml Intake Free Water 150 ml 400 ml IV Total 360 ml 240 ml Tube Feeding 690 ml 660 ml Output Urine Total 3000 ml Stool Total 1 ml # Voids 1 Laboratory Tests 07/01/16 05:35: Sodium Level 146H, Potassium Level 4.7, Chloride Level 109H, Carbon Dioxide Level 21, Anion Gap 16H, Blood Urea Nitrogen 61H, Creatinine 2.3H, Estimat Glomerular Filtration Rate , Glucose Level 69L, Calcium Level 8.9 07/01/16 10:15: White Blood Count 4.2L, Red Blood Count 3.13L, Hemoglobin 9.1L, Hematocrit 28.7L , Mean Corpuscular Volume 92, Mean Corpuscular Hemoglobin 29.2, Mean Corpuscular Hemoglobin Concent 31.9L, Red Cell Distribution Width 16.1H, Platelet Count 115L, Mean Platelet Volume 10.4H, Neutrophils (%) (Auto) 65.6, Lymphocytes (%) (Auto) 18.8L, Monocytes (%) (Auto) 9.3, Eosinophils (%) (Auto) 5.8H, Basophils (%) (Auto) 0.5 07/01/16 10:20: Urine Eosinophils Rare Height (Feet): 6 Height (Inches): 0.00 Weight (Pounds): 200 General Appearance: alert EENT: TMs normal Neck: supple Cardiovascular: regular rhythm Respiratory/Chest: lungs clear Abdomen: non tender Extremities: non-tender Edema: 1+ Leg (L), 1+ Leg (R) Edema: mild edema Neurologic: oriented x 3 Skin: normal pigmentation Esdras Moraes July 01, 2016 16:56
[2016-07-01 20:00] VITALS: BP 124/66
[2016-07-01] MEDS: OLANZapine 2.5mg tab ORAL SCH (20:59)
[2016-07-01] MEDS: Miralax 17gm pkt ORAL SCH (20:59)
[2016-07-02] VITALS: BP 131/56
[2016-07-02 04:00] VITALS: BP 123/52
[2016-07-02] MEDS: HydrALAZINE 25mg tab ORAL SCH ×3 (05:38→22:38)
[2016-07-02 07:49] VITALS: BP 168/78
[2016-07-02 08:39] LABS: BASOPHILS % (AUTO) 0.7 % (0.0-2.0); EOSINOPHILS % (AUTO) 4.1 % (0.0-3.0); MEAN CORPUSCULAR HEMOGLOBIN 29.3 PG (27.0-31.0); MEAN CORPUSCULAR HGB CONC 31.5 G/DL (32.0-36.0); MEAN CORPUSCULAR VOLUME 93 FL (80-99); MEAN PLATELET VOLUME 10.7 FL (6.5-10.1); MONOCYTES % (AUTO) 8.8 % (1.0-10.0); NEUTROPHILS % (AUTO) 72.4 % (45.0-75.0); PLATELET COUNT 108 K/UL (150-450); RED BLOOD COUNT 3.29 M/UL (4.70-6.10); RED CELL DISTRIBUTION WIDTH 16.4 % (11.6-14.8); WHITE BLOOD COUNT 5.6 K/UL (4.8-10.8)
--- NOTE | 2016-07-02 08:52 | General Progress Note ---
Assessment/Plan Problem List: (1) Renal insufficiency ICD Codes: N28.9 - Disorder of kidney and ureter, unspecified SNOMED: 034071363 (2) Acute renal failure ICD Codes: N17.9 - Acute kidney failure, unspecified SNOMED: 86328667 Qualifiers: Qualified Codes: N17.9 - Acute kidney failure, unspecified (3) Acute hypernatremia ICD Codes: E87.0 - Hyperosmolality and hypernatremia SNOMED: 8916292 (4) Gastritis ICD Codes: K29.70 - Gastritis, unspecified, without bleeding SNOMED: 7692302 (5) Hypernatremia ICD Codes: E87.0 - Hyperosmolality and hypernatremia SNOMED: 47891919 (6) Hypothyroidism ICD Codes: E03.9 - Hypothyroidism, unspecified SNOMED: 04470916 (7) Hypoalbuminemia ICD Codes: E88.09 - Other disorders of plasma-protein metabolism, not elsewhere classified SNOMED: 766593665 Status: progressing Assessment/Plan afebrile vitals stable no wheezing lyte abnormality gerd demented reviewed chart and labs Subjective ROS Limited/Unobtainable: Yes Constitutional: Reports: no symptoms Allergies: Coded Allergies: No Known Allergies (Unverified , 04/13/15) Objective Last 24 Hour Vital Signs Date Time Temp Pulse Resp B/P Pulse Ox O2 Delivery O2 Flow Rate FiO2 07/02/16 07:49 97.7 90 20 168/78 95 Room Air 07/02/16 05:38 123/52 07/02/16 04:35 67 07/02/16 04:00 97.2 68 18 123/52 97 Room Air 07/02/16 00:23 62 07/02/16 00:00 97.2 61 20 131/56 99 Room Air 2.0 95 07/01/16 22:31 69 07/01/16 20:59 124/66 07/01/16 20:00 97.2 64 20 124/66 99 Room Air 2.0 95 07/01/16 18:00 55 98/53 07/01/16 16:08 97.2 55 20 98/53 95 Room Air 07/01/16 16:00 59 07/01/16 14:00 101/63 07/01/16 12:01 97.5 63 20 101/63 97 Room Air 07/01/16 12:00 61 07/01/16 09:20 82 165/71 Intake and Output 07/01/16 07/02/16 19:00 07:00 Intake Total 1440 ml 180 ml Output Total 1300 ml Balance 140 ml 180 ml IV Total 720 ml 60 ml Tube Feeding 720 ml 120 ml Output Urine Total 1300 ml # Bowel Movements 1 Laboratory Tests 07/01/16 10:15: White Blood Count 4.2L, Red Blood Count 3.13L, Hemoglobin 9.1L, Hematocrit 28.7L , Mean Corpuscular Volume 92, Mean Corpuscular Hemoglobin 29.2, Mean Corpuscular Hemoglobin Concent 31.9L, Red Cell Distribution Width 16.1H, Platelet Count 115L, Mean Platelet Volume 10.4H, Neutrophils (%) (Auto) 65.6, Lymphocytes (%) (Auto) 18.8L, Monocytes (%) (Auto) 9.3, Eosinophils (%) (Auto) 5.8H, Basophils (%) (Auto) 0.5 07/01/16 10:20: Urine Eosinophils Rare 07/02/16 07:30: White Blood Count 5.6, Red Blood Count 3.29L, Hemoglobin 9.6L, Hematocrit 30.6L , Mean Corpuscular Volume 93, Mean Corpuscular Hemoglobin 29.3, Mean Corpuscular Hemoglobin Concent 31.5L, Red Cell Distribution Width 16.4H, Platelet Count 108L, Mean Platelet Volume 10.7H, Neutrophils (%) (Auto) 72.4, Lymphocytes (%) (Auto) 14.0L, Monocytes (%) (Auto) 8.8, Eosinophils (%) (Auto) 4.1H, Basophils (%) (Auto) 0.7, Sodium Level [Pending], Potassium Level [Pending ], Chloride Level [Pending], Carbon Dioxide Level [Pending], Blood Urea Nitrogen [Pending], Creatinine [Pending], Estimat Glomerular Filtration Rate [ Pending], Glucose Level [Pending], Calcium Level [Pending] Height (Feet): 6 Height (Inches): 0.00 Weight (Pounds): 200 EENT: PERRL/EOMI Neck: supple Cardiovascular: normal peripheral pulses, normal rate Respiratory/Chest: lungs clear Seth Lee MD July 02, 2016 08:52
[2016-07-02 08:56] LABS: ANION GAP 11 (5-15); CALCIUM 8.9 mg/dL (8.6-10.2); CARBON DIOXIDE 27 mEQ/L (20-30); CHLORIDE 108 mEQ/L (98-107); CREATININE 2.1 mg/dL (0.7-1.2); HEMOLYSIS 6; SODIUM 146 mEQ/L (135-145)
[2016-07-02] MEDS: Docusate 100mg cap ORAL SCH ×2 (09:10→19:19)
[2016-07-02 11:27] VITALS: BP 170/93
--- NOTE | 2016-07-02 11:43 | General Progress Note ---
Assessment/Plan Status: stable Status Narrative Cr 2.1 Assessment/Plan status: # MARCO A on CKD, baseline Cr is 1.5 # Dehydration. 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 # Distal common bile duct stone with moderate biliary ductal dilatation s/p sphincterotomy and stone removal and stent placement # Hypertension # Hypothyroidism Plan: to med- surg UA- IV to D5- down the rate Check TSH : low : DC synthroid CARLEY kidney: Atrophic echogenic bilateral kidneys, consistent with medical renal disease Negative for hydronephrosis Monitor renal parameters and electrolytes- avoid nephrotoxics Subjective ROS Limited/Unobtainable: No Constitutional: Reports: malaise Allergies: Coded Allergies: No Known Allergies (Unverified , 04/13/15) Objective Last 24 Hour Vital Signs Date Time Temp Pulse Resp B/P Pulse Ox O2 Delivery O2 Flow Rate FiO2 07/02/16 11:27 97.8 88 20 170/93 94 Room Air 07/02/16 09:10 90 168/78 07/02/16 07:49 97.7 90 20 168/78 95 Room Air 07/02/16 05:38 123/52 07/02/16 04:35 67 07/02/16 04:00 97.2 68 18 123/52 97 Room Air 07/02/16 00:23 62 07/02/16 00:00 97.2 61 20 131/56 99 Room Air 2.0 95 07/01/16 22:31 69 07/01/16 20:59 124/66 07/01/16 20:00 97.2 64 20 124/66 99 Room Air 2.0 95 07/01/16 18:00 55 98/53 07/01/16 16:08 97.2 55 20 98/53 95 Room Air 07/01/16 16:00 59 07/01/16 14:00 101/63 07/01/16 12:01 97.5 63 20 101/63 97 Room Air 07/01/16 12:00 61 Intake and Output 07/01/16 07/02/16 19:00 07:00 Intake Total 1440 ml 180 ml Output Total 1300 ml Balance 140 ml 180 ml IV Total 720 ml 60 ml Tube Feeding 720 ml 120 ml Output Urine Total 1300 ml # Bowel Movements 1 Laboratory Tests 07/02/16 07:30: White Blood Count 5.6, Red Blood Count 3.29L, Hemoglobin 9.6L, Hematocrit 30.6L , Mean Corpuscular Volume 93, Mean Corpuscular Hemoglobin 29.3, Mean Corpuscular Hemoglobin Concent 31.5L, Red Cell Distribution Width 16.4H, Platelet Count 108L, Mean Platelet Volume 10.7H, Neutrophils (%) (Auto) 72.4, Lymphocytes (%) (Auto) 14.0L, Monocytes (%) (Auto) 8.8, Eosinophils (%) (Auto) 4.1H, Basophils (%) (Auto) 0.7, Sodium Level 146H, Potassium Level 4.0, Chloride Level 108H, Carbon Dioxide Level 27, Anion Gap 11, Blood Urea Nitrogen 58H, Creatinine 2.1H, Estimat Glomerular Filtration Rate , Glucose Level 103, Calcium Level 8.9 Height (Feet): 6 Height (Inches): 0.00 Weight (Pounds): 200 General Appearance: no apparent distress Neck: limited range of motion Cardiovascular: normal rate Respiratory/Chest: decreased breath sounds Abdomen: soft Objective PE not changed TAWANNA ONEIL July 02, 2016 11:43
--- NOTE | 2016-07-02 15:13 | General Progress Note ---
Assessment/Plan Assessment/Plan Assessment/Plan Problems: (1) Elevated CEA ICD Codes: R97.0 - Elevated carcinoembryonic antigen [CEA] SNOMED: 84631905, 988775947 (2) Encephalopathy acute ICD Codes: G93.40 - Encephalopathy acute SNOMED: 1910117 (3) Abdominal pain ICD Codes: R10.9 - Unspecified abdominal pain SNOMED: 22508209 (4) Hypoalbuminemia ICD Codes: E88.09 - Other disorders of plasma-protein metabolism, not elsewhere classified SNOMED: 563247199 (5) Gastritis ICD Codes: K29.70 - Gastritis, unspecified, without bleeding SNOMED: 4891931 (6) Anemia ICD Codes: D64.9 - Anemia, unspecified SNOMED: 539388011 Qualifiers: Qualified Codes: D64.9 - Anemia, unspecified Status: stable, progressing Assessment/Plan OB stool uncollected monitor H&H, transfuse prn H2B GI prophylaxis GTFs per dietary GT site care daily/prn electrolyte correction bowel regime fu labs Subjective Allergies: Coded Allergies: No Known Allergies (Unverified , 04/13/15) Subjective confused non communicative tolerating TF Objective Last 24 Hour Vital Signs Date Time Temp Pulse Resp B/P Pulse Ox O2 Delivery O2 Flow Rate FiO2 07/02/16 13:34 170/93 07/02/16 11:27 97.8 88 20 170/93 94 Room Air 07/02/16 09:10 90 168/78 07/02/16 07:49 97.7 90 20 168/78 95 Room Air 07/02/16 05:38 123/52 07/02/16 04:35 67 07/02/16 04:00 97.2 68 18 123/52 97 Room Air 07/02/16 00:23 62 07/02/16 00:00 97.2 61 20 131/56 99 Room Air 2.0 95 07/01/16 22:31 69 07/01/16 20:59 124/66 07/01/16 20:00 97.2 64 20 124/66 99 Room Air 2.0 95 07/01/16 18:00 55 98/53 07/01/16 16:08 97.2 55 20 98/53 95 Room Air 07/01/16 16:00 59 Intake and Output 07/01/16 07/02/16 19:00 07:00 Intake Total 1440 ml 180 ml Output Total 1300 ml Balance 140 ml 180 ml IV Total 720 ml 60 ml Tube Feeding 720 ml 120 ml Output Urine Total 1300 ml # Bowel Movements 1 Laboratory Tests 07/02/16 07:30: White Blood Count 5.6, Red Blood Count 3.29L, Hemoglobin 9.6L, Hematocrit 30.6L , Mean Corpuscular Volume 93, Mean Corpuscular Hemoglobin 29.3, Mean Corpuscular Hemoglobin Concent 31.5L, Red Cell Distribution Width 16.4H, Platelet Count 108L, Mean Platelet Volume 10.7H, Neutrophils (%) (Auto) 72.4, Lymphocytes (%) (Auto) 14.0L, Monocytes (%) (Auto) 8.8, Eosinophils (%) (Auto) 4.1H, Basophils (%) (Auto) 0.7, Sodium Level 146H, Potassium Level 4.0, Chloride Level 108H, Carbon Dioxide Level 27, Anion Gap 11, Blood Urea Nitrogen 58H, Creatinine 2.1H, Estimat Glomerular Filtration Rate , Glucose Level 103, Calcium Level 8.9 Height (Feet): 6 Height (Inches): 0.00 Weight (Pounds): 200 Objective Elderly WM NCAT supple CTA RRR Soft NT ND no edema STEFAN MCDONOUGH July 02, 2016 15:13
[2016-07-02 15:41] VITALS: BP 131/71
--- NOTE | 2016-07-02 17:25 | General Progress Note ---
Assessment/Plan Assessment/Plan Assessment/Plan Assessment: # Anemia secondary to chronic disease - no evidence of iron deficiency # Anemia secondary to kidney disease # RLE DVT hx however has recurrent GI bleed therefore no coumadin # MARCO A on CKD, baseline Cr is 1.5 # Hx of leukocytosis secondary to infection/stress-> from before resolved # Hx thrombocytopenia secondary to infection likely-> from before resolved # Distal common bile duct stone with moderate biliary ductal dilatation s/p sphincterotomy and stone removal and stent placement # Hypertension # Hypothyroidism # Altered mental status # Dehydration. # s/p TURP # Bilateral hydroureter/hydronephrosis Recommendations: - Monitor counts - Transfuse as needed - Do not recommend coumadin given hx of recurrent bleeding - Appreciate Gi consultation - Nutritional support - Supportive care - DVT ppx SCDs Nash Moraes M.D. Subjective Constitutional: Reports: no symptoms HEENT: Reports: no symptoms Cardiovascular: Reports: no symptoms Respiratory: Reports: no symptoms Gastrointestinal/Abdominal: Reports: no symptoms Genitourinary: Reports: no symptoms Neurologic/Psychiatric: Reports: no symptoms Endocrine: Reports: no symptoms Hematologic/Lymphatic: Reports: no symptoms Allergies: Coded Allergies: No Known Allergies (Unverified , 04/13/15) Objective Last 24 Hour Vital Signs Date Time Temp Pulse Resp B/P Pulse Ox O2 Delivery O2 Flow Rate FiO2 07/02/16 15:41 96.3 76 20 131/71 97 Room Air 07/02/16 13:34 170/93 07/02/16 12:00 97 07/02/16 11:27 97.8 88 20 170/93 94 Room Air 07/02/16 09:10 90 168/78 07/02/16 08:00 82 07/02/16 07:49 97.7 90 20 168/78 95 Room Air 07/02/16 05:38 123/52 07/02/16 04:35 67 07/02/16 04:00 97.2 68 18 123/52 97 Room Air 07/02/16 00:23 62 07/02/16 00:00 97.2 61 20 131/56 99 Room Air 2.0 95 07/01/16 22:31 69 07/01/16 20:59 124/66 07/01/16 20:00 97.2 64 20 124/66 99 Room Air 2.0 95 07/01/16 18:00 55 98/53 Intake and Output 07/01/16 07/02/16 19:00 07:00 Intake Total 1440 ml 180 ml Output Total 1300 ml Balance 140 ml 180 ml IV Total 720 ml 60 ml Tube Feeding 720 ml 120 ml Output Urine Total 1300 ml # Bowel Movements 1 Laboratory Tests 07/02/16 07:30: White Blood Count 5.6, Red Blood Count 3.29L, Hemoglobin 9.6L, Hematocrit 30.6L , Mean Corpuscular Volume 93, Mean Corpuscular Hemoglobin 29.3, Mean Corpuscular Hemoglobin Concent 31.5L, Red Cell Distribution Width 16.4H, Platelet Count 108L, Mean Platelet Volume 10.7H, Neutrophils (%) (Auto) 72.4, Lymphocytes (%) (Auto) 14.0L, Monocytes (%) (Auto) 8.8, Eosinophils (%) (Auto) 4.1H, Basophils (%) (Auto) 0.7, Sodium Level 146H, Potassium Level 4.0, Chloride Level 108H, Carbon Dioxide Level 27, Anion Gap 11, Blood Urea Nitrogen 58H, Creatinine 2.1H, Estimat Glomerular Filtration Rate , Glucose Level 103, Calcium Level 8.9 Height (Feet): 6 Height (Inches): 0.00 Weight (Pounds): 200 General Appearance: no apparent distress EENT: TMs normal Neck: supple Cardiovascular: normal rate Respiratory/Chest: lungs clear Abdomen: non tender Pelvis: no masses Extremities: non-tender Edema: no edema noted Arm (L), no edema noted Arm (R), no edema noted Leg (L), no edema noted Leg (R), no edema noted Pedal (L), no edema noted Pedal (R), no edema noted Generalized Edema: mild edema Neurologic: alert Skin: normal pigmentation Lymphatic: normal anterior cervical (L), normal anterior cervical (R), normal axillary (L), normal axillary (R), normal inguinal (L), normal inguinal (R), normal other, normal posterior cervical (L), normal posterior cervical (R), normal submandibular (L), normal submandibular (R), normal supraclavicular (L), normal supraclavicular (R) NASH MORAES July 02, 2016 17:25
[2016-07-02 20:00] VITALS: BP 147/80
[2016-07-02] MEDS: OLANZapine 2.5mg tab ORAL SCH (20:48)
[2016-07-02] MEDS: Miralax 17gm pkt ORAL SCH (20:48)
[2016-07-03] VITALS (7 sets, daily range): BP systolic 113–152; BP diastolic 56–84
[2016-07-03] MEDS: HydrALAZINE 25mg tab ORAL SCH ×3 (06:00→21:47)
[2016-07-03] MEDS: Docusate 100mg cap ORAL SCH ×2 (08:30→17:53)
--- NOTE | 2016-07-03 11:38 | General Progress Note ---
Assessment/Plan Status: stable Status Narrative Cr 2.1 Assessment/Plan status: # MARCO A on CKD, # Dehydration. 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 Monitor renal parameters and electrolytes- avoid nephrotoxics Subjective ROS Limited/Unobtainable: No Constitutional: Reports: malaise, weakness Allergies: Coded Allergies: No Known Allergies (Unverified , 04/13/15) Objective Last 24 Hour Vital Signs Date Time Temp Pulse Resp B/P Pulse Ox O2 Delivery O2 Flow Rate FiO2 07/03/16 08:29 61 150/71 07/03/16 08:25 96.3 61 14 150/71 100 Room Air 07/03/16 06:00 113/69 07/03/16 03:57 96.0 61 20 113/69 96 Room Air 07/03/16 00:00 97.2 60 20 132/56 95 Room Air 07/02/16 22:38 147/77 07/02/16 20:00 97.1 77 20 147/80 95 Room Air 07/02/16 19:20 77 147/80 07/02/16 15:41 96.3 76 20 131/71 97 Room Air 07/02/16 13:34 170/93 07/02/16 12:00 97 Intake and Output 07/02/16 07/03/16 19:00 07:00 Intake Total 1000 ml Output Total 2200 ml 750 ml Balance -2200 ml 250 ml Intake Free Water 400 ml IV Total 600 ml Output Urine Total 2200 ml 750 ml # Bowel Movements 2 1 Height (Feet): 6 Height (Inches): 0.00 Weight (Pounds): 200 General Appearance: no apparent distress Objective PE not changed TAWANNA ONEIL July 03, 2016 11:38
[2016-07-03] MEDS ORDERED: Sterile Water Irrig 1000ml IRRIG ONE (16:10)
--- NOTE | 2016-07-03 16:38 | General Progress Note ---
Assessment/Plan Assessment/Plan Assessment/Plan Problems: (1) Elevated CEA ICD Codes: R97.0 - Elevated carcinoembryonic antigen [CEA] SNOMED: 02454978, 177080100 (2) Encephalopathy acute ICD Codes: G93.40 - Encephalopathy acute SNOMED: 7769346 (3) Abdominal pain ICD Codes: R10.9 - Unspecified abdominal pain SNOMED: 03906052 (4) Hypoalbuminemia ICD Codes: E88.09 - Other disorders of plasma-protein metabolism, not elsewhere classified SNOMED: 380107606 (5) Gastritis ICD Codes: K29.70 - Gastritis, unspecified, without bleeding SNOMED: 7880018 (6) Anemia ICD Codes: D64.9 - Anemia, unspecified SNOMED: 367936827 Qualifiers: Qualified Codes: D64.9 - Anemia, unspecified Status: stable, progressing Assessment/Plan OB stool uncollected monitor H&H, transfuse prn H2B GI prophylaxis GTFs per dietary GT site care daily/prn electrolyte correction bowel regime fu labs Subjective Allergies: Coded Allergies: No Known Allergies (Unverified , 04/13/15) Subjective more awake today tolerating TF d/w RN Objective Last 24 Hour Vital Signs Date Time Temp Pulse Resp B/P Pulse Ox O2 Delivery O2 Flow Rate FiO2 07/03/16 15:24 97.7 81 20 126/84 98 Room Air 07/03/16 15:07 126/84 07/03/16 11:39 97.3 67 16 152/82 99 Room Air 07/03/16 08:29 61 150/71 07/03/16 08:25 96.3 61 14 150/71 100 Room Air 07/03/16 06:00 113/69 07/03/16 03:57 96.0 61 20 113/69 96 Room Air 07/03/16 00:00 97.2 60 20 132/56 95 Room Air 07/02/16 22:38 147/77 07/02/16 20:00 97.1 77 20 147/80 95 Room Air 07/02/16 19:20 77 147/80 Intake and Output 07/02/16 07/03/16 19:00 07:00 Intake Total 1000 ml Output Total 2200 ml 750 ml Balance -2200 ml 250 ml Intake Free Water 400 ml IV Total 600 ml Output Urine Total 2200 ml 750 ml # Bowel Movements 2 1 Height (Feet): 6 Height (Inches): 0.00 Weight (Pounds): 200 Objective Elderly WM NCAT supple CTA RRR Soft NT ND no edema STEFAN MCDONOUGH July 03, 2016 16:38
[2016-07-03] MEDS: Miralax 17gm pkt ORAL SCH (21:14)
[2016-07-03] MEDS: OLANZapine 2.5mg tab ORAL SCH (21:14)
--- NOTE | 2016-07-04 00:26 | General Progress Note ---
Assessment/Plan Assessment/Plan Assessment/Plan Assessment: # Anemia secondary to chronic disease - no evidence of iron deficiency # Anemia secondary to kidney disease # RLE DVT hx however has recurrent GI bleed therefore no coumadin # MARCO A on CKD, baseline Cr is 1.5 # Hx of leukocytosis secondary to infection/stress-> from before resolved # Hx thrombocytopenia secondary to infection likely-> from before resolved # Distal common bile duct stone with moderate biliary ductal dilatation s/p sphincterotomy and stone removal and stent placement # Hypertension # Hypothyroidism # Altered mental status # Dehydration. # s/p TURP # Bilateral hydroureter/hydronephrosis Recommendations: - Monitor counts - Transfuse as needed - Do not recommend coumadin given hx of recurrent bleeding - Appreciate Gi consultation - Nutritional support - Supportive care - DVT ppx SCDs Nash Moraes M.D. Subjective Constitutional: Reports: no symptoms HEENT: Reports: no symptoms Cardiovascular: Reports: no symptoms Respiratory: Reports: no symptoms Gastrointestinal/Abdominal: Reports: no symptoms Genitourinary: Reports: no symptoms Neurologic/Psychiatric: Reports: no symptoms Endocrine: Reports: no symptoms Hematologic/Lymphatic: Reports: no symptoms Allergies: Coded Allergies: No Known Allergies (Unverified , 04/13/15) Objective Last 24 Hour Vital Signs Date Time Temp Pulse Resp B/P Pulse Ox O2 Delivery O2 Flow Rate FiO2 07/03/16 23:56 97.5 74 20 148/66 99 Room Air 07/03/16 21:47 150/67 07/03/16 20:00 97.7 83 20 150/67 98 Room Air 07/03/16 17:56 75 151/78 07/03/16 15:24 97.7 81 20 126/84 98 Room Air 07/03/16 15:07 126/84 07/03/16 11:39 97.3 67 16 152/82 99 Room Air 07/03/16 08:29 61 150/71 07/03/16 08:25 96.3 61 14 150/71 100 Room Air 07/03/16 06:00 113/69 07/03/16 03:57 96.0 61 20 113/69 96 Room Air Intake and Output 07/03/16 07/04/16 19:00 07:00 Intake Total 1640 ml Output Total 1100 ml Balance 540 ml Intake Free Water 200 ml IV Total 720 ml Tube Feeding 720 ml Output Urine Total 1100 ml Height (Feet): 6 Height (Inches): 0.00 Weight (Pounds): 200 General Appearance: alert EENT: normal ENT inspection Neck: supple Cardiovascular: regular rhythm Abdomen: soft Pelvis: no masses Extremities: non-tender Edema: no edema noted Arm (L), no edema noted Arm (R), no edema noted Leg (L), no edema noted Leg (R), no edema noted Pedal (L), no edema noted Pedal (R), no edema noted Generalized NASH MORAES July 04, 2016 00:26
[2016-07-04 04:00] VITALS: BP 154/77
[2016-07-04] MEDS: HydrALAZINE 25mg tab ORAL SCH ×3 (05:32→22:00)
[2016-07-04 08:13] VITALS: BP_SYST 145; BP_SYST 170; BP_DIAS 87
[2016-07-04] MEDS: Docusate 100mg cap ORAL SCH ×2 (08:48→17:31)
--- NOTE | 2016-07-04 10:58 | General Progress Note ---
Assessment/Plan Status: stable Assessment/Plan status: # MARCO A on CKD, # Dehydration. 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 Subjective ROS Limited/Unobtainable: No Constitutional: Reports: malaise Allergies: Coded Allergies: No Known Allergies (Unverified , 04/13/15) Objective Last 24 Hour Vital Signs Date Time Temp Pulse Resp B/P Pulse Ox O2 Delivery O2 Flow Rate FiO2 07/04/16 08:48 66 145/87 07/04/16 08:13 97.0 66 18 145/87 97 Room Air 07/04/16 05:32 154/77 07/04/16 04:00 97.3 72 19 154/77 98 Room Air 07/03/16 23:56 97.5 74 20 148/66 99 Room Air 07/03/16 21:47 150/67 07/03/16 20:00 97.7 83 20 150/67 98 Room Air 07/03/16 17:56 75 151/78 07/03/16 15:24 97.7 81 20 126/84 98 Room Air 07/03/16 15:07 126/84 07/03/16 11:39 97.3 67 16 152/82 99 Room Air Intake and Output 07/03/16 07/04/16 19:00 07:00 Intake Total 1640 ml 1505 ml Output Total 1100 ml 1200 ml Balance 540 ml 305 ml Intake Free Water 200 ml IV Total 720 ml 725 ml Tube Feeding 720 ml 120 ml Other 660 ml Output Urine Total 1100 ml 1200 ml # Bowel Movements 1 Height (Feet): 6 Height (Inches): 0.00 Weight (Pounds): 200 General Appearance: no apparent distress Objective PE not changed TAWANNA ONEIL July 04, 2016 10:58
[2016-07-04 11:56] VITALS: BP 98/63
--- NOTE | 2016-07-04 12:51 | GI Progress Note ---
Assessment/Plan Problems: (1) Elevated CEA ICD Codes: R97.0 - Elevated carcinoembryonic antigen [CEA] SNOMED: 65757929, 816667479 (2) Encephalopathy acute ICD Codes: G93.40 - Encephalopathy acute SNOMED: 2904189 (3) Abdominal pain ICD Codes: R10.9 - Unspecified abdominal pain SNOMED: 46746460 (4) Hypoalbuminemia ICD Codes: E88.09 - Other disorders of plasma-protein metabolism, not elsewhere classified SNOMED: 623108167 (5) Gastritis ICD Codes: K29.70 - Gastritis, unspecified, without bleeding SNOMED: 1756836 (6) Anemia ICD Codes: D64.9 - Anemia, unspecified SNOMED: 657273082 Qualifiers: Qualified Codes: D64.9 - Anemia, unspecified Status: stable Status Narrative Discussed with Dr. Daigle. Assessment/Plan ok for DC per Gi standpoint OB stool uncollected monitor H&H, transfuse prn H2B GI prophylaxis GTFs per dietary GT site care daily/prn electrolyte correction >> hypernatremia resolved. bowel regime fu labs Subjective Subjective limited Objective Last 24 Hour Vital Signs Date Time Temp Pulse Resp B/P Pulse Ox O2 Delivery O2 Flow Rate FiO2 07/04/16 11:56 97.3 81 18 98/63 98 Room Air 07/04/16 08:48 66 145/87 07/04/16 08:13 97.0 66 18 145/87 97 Room Air 07/04/16 05:32 154/77 07/04/16 04:00 97.3 72 19 154/77 98 Room Air 07/03/16 23:56 97.5 74 20 148/66 99 Room Air 07/03/16 21:47 150/67 07/03/16 20:00 97.7 83 20 150/67 98 Room Air 07/03/16 17:56 75 151/78 07/03/16 15:24 97.7 81 20 126/84 98 Room Air 07/03/16 15:07 126/84 Intake and Output 07/03/16 07/04/16 19:00 07:00 Intake Total 1640 ml 1505 ml Output Total 1100 ml 1200 ml Balance 540 ml 305 ml Intake Free Water 200 ml IV Total 720 ml 725 ml Tube Feeding 720 ml 120 ml Other 660 ml Output Urine Total 1100 ml 1200 ml # Bowel Movements 1 Height (Feet): 6 Height (Inches): 0.00 Weight (Pounds): 200 General Appearance: no apparent distress, alert Cardiovascular: normal rate Respiratory/Chest: normal breath sounds, no respiratory distress Abdominal Exam: normal bowel sounds, non tender, soft, GT site - c/d/i Lucia Johnson N.P. July 04, 2016 12:51
--- NOTE | 2016-07-04 13:01 | General Progress Note ---
Assessment/Plan Problem List: (1) Renal insufficiency ICD Codes: N28.9 - Disorder of kidney and ureter, unspecified SNOMED: 954072677 (2) Acute renal failure ICD Codes: N17.9 - Acute kidney failure, unspecified SNOMED: 30932945 Qualifiers: Qualified Codes: N17.9 - Acute kidney failure, unspecified (3) Acute hypernatremia ICD Codes: E87.0 - Hyperosmolality and hypernatremia SNOMED: 1426639 (4) Gastritis ICD Codes: K29.70 - Gastritis, unspecified, without bleeding SNOMED: 6113683 (5) Hypernatremia ICD Codes: E87.0 - Hyperosmolality and hypernatremia SNOMED: 09458902 (6) Hypothyroidism ICD Codes: E03.9 - Hypothyroidism, unspecified SNOMED: 40523976 (7) Hypoalbuminemia ICD Codes: E88.09 - Other disorders of plasma-protein metabolism, not elsewhere classified SNOMED: 557597050 Status: progressing Assessment/Plan check lytes no bleeding clinincally improving afebrile Subjective ROS Limited/Unobtainable: Yes Allergies: Coded Allergies: No Known Allergies (Unverified , 04/13/15) Objective Last 24 Hour Vital Signs Date Time Temp Pulse Resp B/P Pulse Ox O2 Delivery O2 Flow Rate FiO2 07/04/16 11:56 97.3 81 18 98/63 98 Room Air 07/04/16 08:48 66 145/87 07/04/16 08:13 97.0 66 18 145/87 97 Room Air 07/04/16 05:32 154/77 07/04/16 04:00 97.3 72 19 154/77 98 Room Air 07/03/16 23:56 97.5 74 20 148/66 99 Room Air 07/03/16 21:47 150/67 07/03/16 20:00 97.7 83 20 150/67 98 Room Air 07/03/16 17:56 75 151/78 07/03/16 15:24 97.7 81 20 126/84 98 Room Air 07/03/16 15:07 126/84 Intake and Output 07/03/16 07/04/16 19:00 07:00 Intake Total 1640 ml 1505 ml Output Total 1100 ml 1200 ml Balance 540 ml 305 ml Intake Free Water 200 ml IV Total 720 ml 725 ml Tube Feeding 720 ml 120 ml Other 660 ml Output Urine Total 1100 ml 1200 ml # Bowel Movements 1 Height (Feet): 6 Height (Inches): 0.00 Weight (Pounds): 200 Neck: supple Cardiovascular: normal rate Respiratory/Chest: lungs clear Seth Lee MD July 04, 2016 13:01
[2016-07-04 13:35] LABS: ANION GAP 12 (5-15); CALCIUM 8.9 mg/dL (8.6-10.2); CARBON DIOXIDE 28 mEQ/L (20-30); CHLORIDE 103 mEQ/L (98-107); CREATININE 1.7 mg/dL (0.7-1.2); HEMOLYSIS 1; POTASSIUM 3.6 mEQ/L (3.4-4.9); SODIUM 143 mEQ/L (135-145)
[2016-07-04 16:04] VITALS: BP 100/60
[2016-07-04 20:00] VITALS: BP 117/59
--- NOTE | 2016-07-04 20:15 | General Progress Note ---
Assessment/Plan Assessment/Plan Assessment: # Anemia secondary to chronic disease - no evidence of iron deficiency # Anemia secondary to kidney disease # RLE DVT hx however has recurrent GI bleed therefore no coumadin # MARCO A on CKD, baseline Cr is 1.5 # Hx of leukocytosis secondary to infection/stress-> from before resolved # Hx thrombocytopenia secondary to infection likely-> from before resolved # Distal common bile duct stone with moderate biliary ductal dilatation s/p sphincterotomy and stone removal and stent placement # Hypertension # Hypothyroidism # Altered mental status # Dehydration. # s/p TURP # Bilateral hydroureter/hydronephrosis Recommendations: - Monitor counts - Transfuse as needed - Do not recommend coumadin given hx of recurrent bleeding - Appreciate Gi consultation - Nutritional support - Supportive care - DVT ppx SCDs Subjective Constitutional: Reports: no symptoms HEENT: Reports: no symptoms Cardiovascular: Reports: no symptoms Respiratory: Reports: no symptoms Gastrointestinal/Abdominal: Reports: no symptoms Genitourinary: Reports: no symptoms Neurologic/Psychiatric: Reports: no symptoms Endocrine: Reports: no symptoms Hematologic/Lymphatic: Reports: anemia Allergies: Coded Allergies: No Known Allergies (Unverified , 04/13/15) Subjective stable, ob stool is uncollected Objective Last 24 Hour Vital Signs Date Time Temp Pulse Resp B/P Pulse Ox O2 Delivery O2 Flow Rate FiO2 07/04/16 20:00 98.4 47 18 117/59 97 Room Air 07/04/16 17:32 48 100/60 07/04/16 16:04 97.0 48 18 100/60 96 Room Air 07/04/16 13:39 153/79 07/04/16 11:56 97.3 81 18 98/63 98 Room Air 07/04/16 08:48 66 145/87 07/04/16 08:13 97.0 66 18 145/87 97 Room Air 07/04/16 05:32 154/77 07/04/16 04:00 97.3 72 19 154/77 98 Room Air 07/03/16 23:56 97.5 74 20 148/66 99 Room Air 07/03/16 21:47 150/67 Intake and Output 07/03/16 07/04/16 19:00 07:00 Intake Total 1640 ml 1505 ml Output Total 1100 ml 1200 ml Balance 540 ml 305 ml Intake Free Water 200 ml IV Total 720 ml 725 ml Tube Feeding 720 ml 120 ml Other 660 ml Output Urine Total 1100 ml 1200 ml # Bowel Movements 1 Laboratory Tests 07/04/16 12:25: Sodium Level 143, Potassium Level 3.6, Chloride Level 103, Carbon Dioxide Level 28, Anion Gap 12, Blood Urea Nitrogen 43H, Creatinine 1.7H, Estimat Glomerular Filtration Rate , Glucose Level 117H, Calcium Level 8.9 Height (Feet): 6 Height (Inches): 0.00 Weight (Pounds): 200 General Appearance: lethargic EENT: TMs normal Neck: supple Cardiovascular: regular rhythm Respiratory/Chest: normal breath sounds Abdomen: normal bowel sounds, no mass Genitourinary/Rectal: heme negative stool Esdras Moraes July 04, 2016 20:15
[2016-07-04] MEDS: OLANZapine 2.5mg tab ORAL SCH (21:24)
[2016-07-04] MEDS: Miralax 17gm pkt ORAL SCH (21:24)
[2016-07-05] VITALS: BP 97/56
[2016-07-05 00:28] VITALS: BP 139/61
[2016-07-05 04:00] VITALS: BP 114/56
[2016-07-05] MEDS: HydrALAZINE 25mg tab ORAL SCH ×2 (05:34→13:37)
[2016-07-05 07:29] LABS: ANION GAP 13 (5-15); CALCIUM 9.5 mg/dL (8.6-10.2); CARBON DIOXIDE 29 mEQ/L (20-30); CHLORIDE 102 mEQ/L (98-107); CREATININE 1.9 mg/dL (0.7-1.2); HEMOLYSIS 5; POTASSIUM 4.1 mEQ/L (3.4-4.9); SODIUM 144 mEQ/L (135-145)
[2016-07-05 07:32] LABS: BASOPHILS % (AUTO) 0.9 % (0.0-2.0); EOSINOPHILS % (AUTO) 6.3 % (0.0-3.0); MEAN CORPUSCULAR HEMOGLOBIN 28.9 PG (27.0-31.0); MEAN CORPUSCULAR HGB CONC 31.1 G/DL (32.0-36.0); MEAN CORPUSCULAR VOLUME 93 FL (80-99); MEAN PLATELET VOLUME 12.6 FL (6.5-10.1); MONOCYTES % (AUTO) 10.7 % (1.0-10.0); NEUTROPHILS % (AUTO) 64.2 % (45.0-75.0); PLATELET COUNT 121 K/UL (150-450); RED CELL DISTRIBUTION WIDTH 16.3 % (11.6-14.8); WHITE BLOOD COUNT 3.7 K/UL (4.8-10.8)
[2016-07-05 08:34] VITALS: BP 151/76
[2016-07-05] MEDS: Docusate 100mg cap ORAL SCH (08:50)
--- NOTE | 2016-07-05 09:26 | General Progress Note ---
Assessment/Plan Status: stable Status Narrative Cr 1.9 Assessment/Plan status: # MARCO A on CKD, # Dehydration. 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 Subjective ROS Limited/Unobtainable: No Constitutional: Reports: malaise Allergies: Coded Allergies: No Known Allergies (Unverified , 04/13/15) Objective Last 24 Hour Vital Signs Date Time Temp Pulse Resp B/P Pulse Ox O2 Delivery O2 Flow Rate FiO2 07/05/16 08:50 64 151/76 07/05/16 08:34 98.2 64 17 151/76 99 Room Air 07/05/16 05:34 122/68 07/05/16 04:00 97.6 49 18 114/56 98 Room Air 07/05/16 00:28 97.8 61 18 139/61 96 Room Air 07/05/16 00:00 97.8 47 18 97/56 96 Room Air 07/04/16 22:00 108/68 07/04/16 20:00 98.4 47 18 117/59 97 Room Air 07/04/16 17:32 48 100/60 07/04/16 16:04 97.0 48 18 100/60 96 Room Air 07/04/16 13:39 153/79 07/04/16 11:56 97.3 81 18 98/63 98 Room Air Intake and Output 07/04/16 07/05/16 19:00 07:00 Intake Total 1525 ml 1780 ml Output Total 1200 ml 1250 ml Balance 325 ml 530 ml Intake Free Water 200 ml 400 ml IV Total 605 ml 720 ml Tube Feeding 720 ml 660 ml Output Urine Total 1200 ml 1250 ml Laboratory Tests 07/04/16 12:25: Sodium Level 143, Potassium Level 3.6, Chloride Level 103, Carbon Dioxide Level 28, Anion Gap 12, Blood Urea Nitrogen 43H, Creatinine 1.7H, Estimat Glomerular Filtration Rate , Glucose Level 117H, Calcium Level 8.9 07/05/16 05:30: Sodium Level 144, Potassium Level 4.1, Chloride Level 102, Carbon Dioxide Level 29, Anion Gap 13, Blood Urea Nitrogen 49H, Creatinine 1.9H, Estimat Glomerular Filtration Rate , Glucose Level 112H, Calcium Level 9.5, White Blood Count 3.7L , Red Blood Count 3.40L, Hemoglobin 9.8L, Hematocrit 31.6L, Mean Corpuscular Volume 93, Mean Corpuscular Hemoglobin 28.9, Mean Corpuscular Hemoglobin Concent 31.1L, Red Cell Distribution Width 16.3H, Platelet Count 121L, Mean Platelet Volume 12.6H, Neutrophils (%) (Auto) 64.2, Lymphocytes (%) (Auto) 18.0L , Monocytes (%) (Auto) 10.7H, Eosinophils (%) (Auto) 6.3H, Basophils (%) (Auto) 0.9 Height (Feet): 6 Height (Inches): 0.00 Weight (Pounds): 200 General Appearance: no apparent distress Objective PE not changed TAWANNA ONEIL July 05, 2016 09:26
--- NOTE | 2016-07-05 10:05 | GI Progress Note ---
Assessment/Plan Problems: (1) Elevated CEA ICD Codes: R97.0 - Elevated carcinoembryonic antigen [CEA] SNOMED: 97954281, 649978846 (2) Encephalopathy acute ICD Codes: G93.40 - Encephalopathy acute SNOMED: 4221416 (3) Abdominal pain ICD Codes: R10.9 - Unspecified abdominal pain SNOMED: 51658968 (4) Hypoalbuminemia ICD Codes: E88.09 - Other disorders of plasma-protein metabolism, not elsewhere classified SNOMED: 977712351 (5) Gastritis ICD Codes: K29.70 - Gastritis, unspecified, without bleeding SNOMED: 8564346 (6) Anemia ICD Codes: D64.9 - Anemia, unspecified SNOMED: 404697908 Qualifiers: Qualified Codes: D64.9 - Anemia, unspecified Status: stable Status Narrative Discussed with Dr. Daigle. Assessment/Plan ok for DC per Gi standpoint electrolyte correction >> hypernatremia resolved. OB stool uncollected monitor H&H, transfuse prn H2B GI prophylaxis GTFs per dietary GT site care daily/prn bowel regime fu labs Subjective Subjective limited Objective Last 24 Hour Vital Signs Date Time Temp Pulse Resp B/P Pulse Ox O2 Delivery O2 Flow Rate FiO2 07/05/16 08:50 64 151/76 07/05/16 08:34 98.2 64 17 151/76 99 Room Air 07/05/16 05:34 122/68 07/05/16 04:00 97.6 49 18 114/56 98 Room Air 07/05/16 00:28 97.8 61 18 139/61 96 Room Air 07/05/16 00:00 97.8 47 18 97/56 96 Room Air 07/04/16 22:00 108/68 07/04/16 20:00 98.4 47 18 117/59 97 Room Air 07/04/16 17:32 48 100/60 07/04/16 16:04 97.0 48 18 100/60 96 Room Air 07/04/16 13:39 153/79 07/04/16 11:56 97.3 81 18 98/63 98 Room Air Intake and Output 07/04/16 07/05/16 19:00 07:00 Intake Total 1525 ml 1780 ml Output Total 1200 ml 1250 ml Balance 325 ml 530 ml Intake Free Water 200 ml 400 ml IV Total 605 ml 720 ml Tube Feeding 720 ml 660 ml Output Urine Total 1200 ml 1250 ml Laboratory Tests Test 07/04/16 12:25 07/05/16 05:30 Sodium Level 143 mEQ/L (135-145) 144 mEQ/L (135-145) Potassium Level 3.6 mEQ/L (3.4-4.9) 4.1 mEQ/L (3.4-4.9) Chloride Level 103 mEQ/L (98-107) 102 mEQ/L (98-107) Carbon Dioxide Level 28 mEQ/L (20-30) 29 mEQ/L (20-30) Anion Gap 12 (5-15) 13 (5-15) Blood Urea Nitrogen 43 mg/dL (7-23) H 49 mg/dL (7-23) H Creatinine 1.7 mg/dL (0.7-1.2) H 1.9 mg/dL (0.7-1.2) H Estimat Glomerular Filtration Rate mL/min (>60) mL/min (>60) Glucose Level 117 mg/dL (74-106) H 112 mg/dL (74-106) H Calcium Level 8.9 mg/dL (8.6-10.2) 9.5 mg/dL (8.6-10.2) White Blood Count 3.7 K/UL (4.8-10.8) L Red Blood Count 3.40 M/UL (4.70-6.10) L Hemoglobin 9.8 G/DL (14.2-18.0) L Hematocrit 31.6 % (42.0-52.0) L Mean Corpuscular Volume 93 FL (80-99) Mean Corpuscular Hemoglobin 28.9 PG (27.0-31.0) Mean Corpuscular Hemoglobin Concent 31.1 G/DL (32.0-36.0) L Red Cell Distribution Width 16.3 % (11.6-14.8) H Platelet Count 121 K/UL (150-450) L Mean Platelet Volume 12.6 FL (6.5-10.1) H Neutrophils (%) (Auto) 64.2 % (45.0-75.0) Lymphocytes (%) (Auto) 18.0 % (20.0-45.0) L Monocytes (%) (Auto) 10.7 % (1.0-10.0) H Eosinophils (%) (Auto) 6.3 % (0.0-3.0) H Basophils (%) (Auto) 0.9 % (0.0-2.0) Height (Feet): 6 Height (Inches): 0.00 Weight (Pounds): 200 General Appearance: no apparent distress, alert, confused Cardiovascular: normal rate Respiratory/Chest: normal breath sounds, no respiratory distress Abdominal Exam: site - c/d/i Lucia Johnson N.P. July 05, 2016 10:05
--- NOTE | 2016-07-05 11:55 | General Progress Note ---
Assessment/Plan Problem List: (1) Renal insufficiency ICD Codes: N28.9 - Disorder of kidney and ureter, unspecified SNOMED: 272904769 (2) Acute renal failure ICD Codes: N17.9 - Acute kidney failure, unspecified SNOMED: 75806292 Qualifiers: Qualified Codes: N17.9 - Acute kidney failure, unspecified (3) Acute hypernatremia ICD Codes: E87.0 - Hyperosmolality and hypernatremia SNOMED: 8276828 (4) Gastritis ICD Codes: K29.70 - Gastritis, unspecified, without bleeding SNOMED: 2280801 (5) Hypernatremia ICD Codes: E87.0 - Hyperosmolality and hypernatremia SNOMED: 53980068 (6) Hypothyroidism ICD Codes: E03.9 - Hypothyroidism, unspecified SNOMED: 46568092 (7) Hypoalbuminemia ICD Codes: E88.09 - Other disorders of plasma-protein metabolism, not elsewhere classified SNOMED: 162435080 Status: progressing Assessment/Plan check lytes no bleeding cri creatinine is stable\ obs h/h is stable dc to snf Subjective ROS Limited/Unobtainable: Yes Allergies: Coded Allergies: No Known Allergies (Unverified , 04/13/15) Objective Last 24 Hour Vital Signs Date Time Temp Pulse Resp B/P Pulse Ox O2 Delivery O2 Flow Rate FiO2 07/05/16 08:50 64 151/76 07/05/16 08:34 98.2 64 17 151/76 99 Room Air 07/05/16 05:34 122/68 07/05/16 04:00 97.6 49 18 114/56 98 Room Air 07/05/16 00:28 97.8 61 18 139/61 96 Room Air 07/05/16 00:00 97.8 47 18 97/56 96 Room Air 07/04/16 22:00 108/68 07/04/16 20:00 98.4 47 18 117/59 97 Room Air 07/04/16 17:32 48 100/60 07/04/16 16:04 97.0 48 18 100/60 96 Room Air 07/04/16 13:39 153/79 07/04/16 11:56 97.3 81 18 98/63 98 Room Air Intake and Output 07/04/16 07/05/16 19:00 07:00 Intake Total 1525 ml 1840 ml Output Total 1200 ml 1250 ml Balance 325 ml 590 ml Intake Free Water 200 ml 400 ml IV Total 605 ml 780 ml Tube Feeding 720 ml 660 ml Output Urine Total 1200 ml 1250 ml Laboratory Tests 07/04/16 12:25: Sodium Level 143, Potassium Level 3.6, Chloride Level 103, Carbon Dioxide Level 28, Anion Gap 12, Blood Urea Nitrogen 43H, Creatinine 1.7H, Estimat Glomerular Filtration Rate , Glucose Level 117H, Calcium Level 8.9 07/05/16 05:30: Sodium Level 144, Potassium Level 4.1, Chloride Level 102, Carbon Dioxide Level 29, Anion Gap 13, Blood Urea Nitrogen 49H, Creatinine 1.9H, Estimat Glomerular Filtration Rate , Glucose Level 112H, Calcium Level 9.5, White Blood Count 3.7L , Red Blood Count 3.40L, Hemoglobin 9.8L, Hematocrit 31.6L, Mean Corpuscular Volume 93, Mean Corpuscular Hemoglobin 28.9, Mean Corpuscular Hemoglobin Concent 31.1L, Red Cell Distribution Width 16.3H, Platelet Count 121L, Mean Platelet Volume 12.6H, Neutrophils (%) (Auto) 64.2, Lymphocytes (%) (Auto) 18.0L , Monocytes (%) (Auto) 10.7H, Eosinophils (%) (Auto) 6.3H, Basophils (%) (Auto) 0.9 Height (Feet): 6 Height (Inches): 0.00 Weight (Pounds): 200 Neck: supple Cardiovascular: normal rate Respiratory/Chest: lungs clear Seth Lee MD July 05, 2016 11:55
[2016-07-05 12:37] VITALS: BP 151/70
--- NOTE | 2016-07-05 15:52 | Cardiology Report ---
APPROVED REPORT EKG Measurement Heart [id number] Sinus rhythm with 1st degree AV block Left axis deviation Inferior infarct, age undetermined Abnormal ECG
[2016-07-05 16:02] VITALS: BP 125/60
--- NOTE | 2016-07-05 19:42 | General Progress Note ---
Assessment/Plan Assessment/Plan Assessment: # Anemia secondary to chronic disease - no evidence of iron deficiency, is stable for d/c # Anemia secondary to kidney disease # RLE DVT hx however has recurrent GI bleed therefore no coumadin # MARCO A on CKD, baseline Cr is 1.5 # Hx of leukocytosis secondary to infection/stress-> from before resolved # Hx thrombocytopenia secondary to infection likely-> from before resolved # Distal common bile duct stone with moderate biliary ductal dilatation s/p sphincterotomy and stone removal and stent placement # Hypertension # Hypothyroidism # Altered mental status # Dehydration. # s/p TURP # Bilateral hydroureter/hydronephrosis Recommendations: - Monitor counts - Transfuse as needed - Do not recommend coumadin given hx of recurrent bleeding - Appreciate Gi consultation - Nutritional support - Supportive care - DVT ppx SCDs Subjective Constitutional: Denies: chills, diaphoresis, fever, malaise, no symptoms, other , weakness HEENT: Denies: blurred vision, double vision, ear discharge, ear pain, eye pain , mouth pain, mouth swelling, no symptoms, nose congestion, nose pain, other, tearing, throat pain, throat swelling Cardiovascular: Denies: chest pain, edema, irregular heart rate, lightheadedness, no symptoms, other, palpitations, syncope Respiratory: Denies: SOB at rest, SOB with excertion, cough, no symptoms, orthopnea, other, shortness of breath, sputum, stridor, wheezing Gastrointestinal/Abdominal: Denies: abdomen distended, abdominal pain, black stools, blood in stool, constipated, diarrhea, difficulty swallowing, nausea, no symptoms, other, poor appetite, poor fluid intake, rectal bleeding, tarry stools, vomiting Genitourinary: Denies: burning, discharge, flank pain, frequency, hematuria, incontinence, no symptoms, other, pain, urgency Neurologic/Psychiatric: Denies: anxiety, depressed, emotional problems, headache, no symptoms, numbness, other, paresthesia, pre-existing deficit, seizure, tingling, tremors, weakness Hematologic/Lymphatic: Denies: anemia, easy bleeding, easy bruising, no symptoms, other Allergies: Coded Allergies: No Known Allergies (Unverified , 04/13/15) Subjective stable for d/c, no bleeding over night Objective Last 24 Hour Vital Signs Date Time Temp Pulse Resp B/P Pulse Ox O2 Delivery O2 Flow Rate FiO2 5/9/17 16:02 97.0 85 18 125/60 95 Room Air 07/05/16 15:59 97.0 85 18 95 Room Air 07/05/16 13:37 151/70 07/05/16 12:37 97.1 80 17 151/70 96 Room Air 07/05/16 12:37 97.1 80 16 151/70 96 Room Air 07/05/16 08:50 64 151/76 07/05/16 08:34 98.2 64 17 151/76 99 Room Air 07/05/16 05:34 122/68 07/05/16 04:00 97.6 49 18 114/56 98 Room Air 07/05/16 00:28 97.8 61 18 139/61 96 Room Air 07/05/16 00:00 97.8 47 18 97/56 96 Room Air 07/04/16 22:00 108/68 07/04/16 20:00 98.4 47 18 117/59 97 Room Air Intake and Output 07/04/16 07/05/16 19:00 07:00 Intake Total 1525 ml 1900 ml Output Total 1200 ml 1250 ml Balance 325 ml 650 ml Intake Free Water 200 ml 400 ml IV Total 605 ml 780 ml Tube Feeding 720 ml 720 ml Output Urine Total 1200 ml 1250 ml Laboratory Tests 07/05/16 05:30: White Blood Count 3.7L, Red Blood Count 3.40L, Hemoglobin 9.8L, Hematocrit 31.6L , Mean Corpuscular Volume 93, Mean Corpuscular Hemoglobin 28.9, Mean Corpuscular Hemoglobin Concent 31.1L, Red Cell Distribution Width 16.3H, Platelet Count 121L, Mean Platelet Volume 12.6H, Neutrophils (%) (Auto) 64.2, Lymphocytes (%) (Auto) 18.0L, Monocytes (%) (Auto) 10.7H, Eosinophils (%) (Auto ) 6.3H, Basophils (%) (Auto) 0.9, Sodium Level 144, Potassium Level 4.1, Chloride Level 102, Carbon Dioxide Level 29, Anion Gap 13, Blood Urea Nitrogen 49H, Creatinine 1.9H, Estimat Glomerular Filtration Rate , Glucose Level 112H, Calcium Level 9.5 Height (Feet): 6 Height (Inches): 0.00 Weight (Pounds): 200 General Appearance: no apparent distress EENT: TMs normal Neck: supple Cardiovascular: regular rhythm Respiratory/Chest: lungs clear Abdomen: non tender Genitourinary/Rectal: heme negative stool Extremities: normal inspection Edema: trace edema Neurologic: alert Skin: warm/dry Esdras Moraes July 05, 2016 19:42
--- NOTE | 2016-07-06 19:49 | Discharge Summary ---
Discharge Summary Hospital Course Date of Admission June 28, 2016 at 00:28 Date of Discharge July 05, 2016 at 16:00 Admitting Diagnosis Acute Renal Failure, Dehydration HPI Gigi Moore is a 85 year old male who was admitted on June 28, 2016 at 00: 28 for Abnormal Labs Hospital Course job #[id number] Discharge Discharge Disposition Patient was discharged to SNF/Subacute Facility(03) Discharge Diagnoses: Vilma Santo NP July 06, 2016 19:49
--- NOTE | 2016-07-07 00:39 | Discharge Summary 2 SIG ---
DATE OF ADMISSION: 06/28/2016 DATE OF DISCHARGE: 07/05/2016 CONSULTANTS: 1. Esdras Moraes M.D. 2. Yuriy Daigle M.D. 3. Solo Morgan M.D. 4. Donny Adkins M.D. BRIEF HOSPITAL COURSE: The patient is an 85-year-old male, who is jail resident, was sent to [facility] secondary to abnormal labs. The patient had severe hypernatremia and had elevated creatinine. On evaluation at ED showed sodium level of 161, potassium 4.3, BUN 87, creatinine 2.4, and albumin 2.9. He was admitted for severe hypernatremia, dehydration, and acute renal failure on top of chronic renal failure. He was followed by Dr. Morgan. The patient's baseline creatinine is 1.9. The patient was given IV hydration. Renal ultrasound done showed atrophic echogenic bilateral kidneys consistent with medical renal disease, negative for hydronephrosis. He was seen by Dr. Daigle for evaluation of G-tube. The patient was nonresponsive and has feeding tube and gets nutrition via feeding tube. Tube feeding was continued. The patient was noted to have anemia and elevated INR. Hematology service was consulted. Anemia workup done. The patient has no evidence of iron deficiency, anemia secondary to chronic disease and kidney disease. He had history of right lower extremity DVT, who was priorly on Coumadin, but had to stop secondary to recurrent GI bleed. Peripheral blood smear showed pancytopenia with mild leukopenia. No blasts seen. Anemia was normocytic and normochromic. With no morphologic change is seen. He had a venous duplex of lower extremity, which showed acute thrombus in both right and left leg, however, unable to start anticoagulation. Electrolytes improved. Creatinine back to baseline. The patient was [facility]. FINAL DIAGNOSES: 1. Hypernatremia. 2. Acute kidney injury on chronic kidney disease. 3. Dehydration. 4. Coagulopathy. 5. Anemia secondary to chronic disease. 6. Anemia secondary to kidney disease. 7. History of deep venous thrombosis, however, has recurrent gastrointestinal bleed. Therefore, no Coumadin. 8. Hypothyroidism. 9. Hypertension. 10. Acute metabolic encephalopathy. 11. Gastritis. 12. Hypoalbuminemia. Seth Lee M.D. I have been assigned to dictate discharge summary on this account and I was not involved in the patient's management. Vilma Santo N.P. DR: Lamar JOB#: [id number] CC:
== END 2016-07-05 16:00 | DRG 682 ==
LOC: EDBD 21:54 → EDUNIT# 21:54 → EMR 22:20 → 2W 06-28 00:28 → EDBEDREQ 06-28 05:38 → 2E 06-29 07:46 → 4W 07-02 16:17
DX: N17.9 Acute kidney failure, unspecified (principal); G93.41 Metabolic encephalopathy; E87.0 Hyperosmolality and hypernatremia; D61.818 Other pancytopenia; K92.2 Gastrointestinal hemorrhage, unspecified; Z43.1 Encounter for attention to gastrostomy; F05 Delirium due to known physiological condition; E88.09 Other disorders of plasma-protein metabolism, not elsewhere classified; K29.70 Gastritis, unspecified, without bleeding; E03.9 Hypothyroidism, unspecified; N18.9 Chronic kidney disease, unspecified; Z86.718 Personal history of other venous thrombosis and embolism; Z79.01 Long term (current) use of anticoagulants; D63.1 Anemia in chronic kidney disease; F03.90 Unspecified dementia, unspecified severity, without behavioral disturbance, psychotic disturbance, mood disturbance, and anxiety; K21.9 Gastro-esophageal reflux disease without esophagitis; K57.90 Diverticulosis of intestine, part unspecified, without perforation or abscess without bleeding; F29 Unspecified psychosis not due to a substance or known physiological condition; I13.10 Hypertensive heart and chronic kidney disease without heart failure, with stage 1 through stage 4 chronic kidney disease, or unspecified chronic kidney disease; R97.0 Elevated carcinoembryonic antigen [CEA]; N13.30 Unspecified hydronephrosis; Z66 Do not resuscitate
CPT/HCPCS: 36415; 70450; 71010; 76775; 80048; 80053; 80061; 81001; 82550; 82607; 82728; 82746; 82977; 83036; 83540; 83550; 83735; 83880; 84100; 84300; 84443; 84484; 84550; 85007; 85025; 85060; 85610; 85730; 86140; 89050; 93005; 93970

== ENCOUNTER 2016-10-02 12:20 | Inpatient (IN) | payer MEDICARE, MEDICAID ==
[~2016-10-02] VITALS: Ht 180.3 cm; Wt 79.4 kg
[~2016-10-02 12:20] MED LIST changes: +AMLODIPINE BESYL5 MG GT; -AMLODIPINE BESYL5 MG ORAL; +DOCUSATE SODIU100 M2 PEG; +FERROUS SULFAT325 MG GT; -FERROUS SULFAT325 MG ORAL; +HYDRALAZINE HCL50 MG ORAL; +HYDRALAZINE HCL50 MG PEG; +LEVETIRACETAM500 M1 PEG; +LEVOTHYROXINE25 MCG PEG; +LORAZEPAM1 MG GT; -LORAZEPAM1 MG ORAL; +PROSCAR5 MG PEG; +TAMSULOSIN HCL0.4 MG PEG
[2016-10-02] MEDS ORDERED: Ampicillin/Sulbactam Sod 3 GM in NS 110 ML IVPB ONE (12:30)
[2016-10-02] MEDS ORDERED: metroNIDAZOLE 500mg 100 ML IV ONE (12:30)
[2016-10-02] MEDS ORDERED: Vancomycin 1 GM in NS 275 ML IV ONE (12:30)
--- NOTE | 2016-10-02 12:44 | Emergency Room Report ---
History of Present Illness General Chief Complaint: Fever Source: Patient Present Illness HPI Patient is 85-year-old male brought in by EMS after increased fever and productive cough. The patient had prior history of DO NOT RESUSCITATE status. The patient was noted to be febrile at his nursing of 101 temperature. Chest x -ray showed infiltrate. The patient was sent to the hospital for further evaluation and treatment. 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 History is limited by patient's mental status. Allergies: Coded Allergies: No Known Allergies (Unverified , 04/13/15) Patient History Past Medical History: see triage record Reviewed Nursing Documentation: PMH: Agreed, PSxH: Agreed Nursing Documentation-PMH Hx Cardiac Problems: Yes Hx Hypertension: Yes Hx Cancer: No Hx Gastrointestinal Problems: Yes History Of Psychiatric Problem: Yes Hx Neurological Problems: Yes Hx Cerebrovascular Accident: No - SUBARACNOID HEMORAGE Hx Dementia: Yes Hx Alzheimer's Disease: Yes Hx Parkinson's Disease: Yes Hx Encephalitis: No - Encephalopathy Hx Speech Problem: Yes - communicate deficit Hx Weakness: Yes Review of Systems All Other Systems: limited - by mental status Physical Exam Vital Signs Date Time Temp Pulse Resp B/P Pulse Ox O2 Delivery O2 Flow Rate FiO2 10/02/16 12:21 100.2 92 24 120/52 91 Nasal Cannula 4.0 General Appearance: obese, other - poor alertness, Chronically Ill ENT: uvula midline, dry mucus membranes Neck: limited range of motion Respiratory: rhonchi Cardiovascular #1: normal peripheral pulses, regular rate, rhythm, edema - left side edema Gastrointestinal: non tender, soft, other - gtube Musculoskeletal: other - left leg swelling Neurologic: aphasia, motor weakness Skin: normal inspection, normal color Medical Decision Making Diagnostic Impression: Primary Impression: Pneumonia Additional Impressions: Sepsis Renal insufficiency ER Course Patient presented for fever and productive cough. Differential included but was not limited to anemia, pneumonia, pneumothorax, myocardial infarction, pericardial effusion, congestive heart failure, acidosis. Because of complexity of patient's case laboratory testing and imaging studies were ordered. EKG interpreted by me showed normal sinus rhythm with a rate of [address] or T wave changes.The patient was noted to have A. fib with RVR. Dr. Seth Lo was contacted for inpatient management. Patient was given IV fluids as well as IV antibiotics. Labs Test 10/02/16 12:50 10/02/16 13:24 10/02/16 13:30 White Blood Count 6.4 K/UL (4.8-10.8) Red Blood Count 2.52 M/UL (4.70-6.10) Hemoglobin 7.9 G/DL (14.2-18.0) Hematocrit 24.9 % (42.0-52.0) Mean Corpuscular Volume 99 FL (80-99) Mean Corpuscular Hemoglobin 31.5 PG (27.0-31.0) Mean Corpuscular Hemoglobin Concent 31.8 G/DL (32.0-36.0) Red Cell Distribution Width 15.0 % (11.6-14.8) Platelet Count 119 K/UL (150-450) Mean Platelet Volume 8.8 FL (6.5-10.1) Neutrophils (%) (Auto) % (45.0-75.0) Lymphocytes (%) (Auto) % (20.0-45.0) Monocytes (%) (Auto) % (1.0-10.0) Eosinophils (%) (Auto) % (0.0-3.0) Basophils (%) (Auto) % (0.0-2.0) Differential Total Cells Counted 100 Neutrophils % (Manual) 75 % (45-75) Lymphocytes % (Manual) 17 % (20-45) Monocytes % (Manual) 6 % (1-10) Eosinophils % (Manual) 0 % (0-3) Basophils % (Manual) 0 % (0-2) Band Neutrophils 2 % (0-8) Platelet Estimate Decreased Platelet Morphology Normal Anisocytosis 1+ Prothrombin Time 11.1 SEC (9.30-11.50) Prothromb Time International Ratio 1.1 (0.9-1.1) Activated Partial Thromboplast Time 33 SEC (23-33) Sodium Level 138 mEQ/L (135-145) Potassium Level 4.2 mEQ/L (3.4-4.9) Chloride Level 101 mEQ/L (98-107) Carbon Dioxide Level 22 mEQ/L (20-30) Blood Urea Nitrogen 68 mg/dL (7-23) Creatinine 2.3 mg/dL (0.7-1.2) Estimat Glomerular Filtration Rate mL/min (>60) Glucose Level 111 mg/dL (74-106) Calcium Level 8.6 mg/dL (8.6-10.2) Total Bilirubin 0.3 mg/dL (0.0-1.2) Aspartate Amino Transf (AST/SGOT) 20 U/L (5-40) Alanine Aminotransferase (ALT/SGPT) 17 U/L (3-41) Alkaline Phosphatase 65 U/L (40-129) Troponin I < 0.30 ng/mL (<=0.30) Pro-B-Type Natriuretic Peptide 4773 pg/mL (0-450) Total Protein 6.4 g/dL (6.6-8.7) Albumin 3.2 g/dL (3.5-5.2) Globulin 3.2 g/dL Albumin/Globulin Ratio 1.0 (1.0-2.7) Urine Color Pale yellow Urine Appearance Slightly cloudy Urine pH 5 (4.5-8.0) Urine Specific [place] 1.010 (1.005-1.035) Urine Protein 3+ (NEGATIVE) Urine Glucose (UA) Negative (NEGATIVE) Urine Ketones Negative (NEGATIVE) Urine Occult Blood Negative (NEGATIVE) Urine Nitrite Negative (NEGATIVE) Urine Bilirubin Negative (NEGATIVE) Urine Urobilinogen Normal MG/DL (0.0-1.0) Urine Leukocyte Esterase 2+ (NEGATIVE) Urine RBC 0-2 /HPF (0 - 0) Urine WBC 5-10 /HPF (0 - 0) Urine Squamous Epithelial Cells Occasional /LPF Urine Amorphous Sediment Few /LPF (NONE) Urine Bacteria Few /HPF (NONE) Arterial Blood pH 7.463 (7.350-7.450) Arterial Blood Partial Pressure CO2 28.3 mmHg (35.0-45.0) Arterial Blood Partial Pressure O2 74.7 mmHg (75.0-100.0) Arterial Blood HCO3 19.8 mmol/L (22.0-26.0) Arterial Blood Oxygen Saturation 94.9 % (92.0-98.0) Arterial Blood Base Excess -3.3 Sergey Test Positive EKG Diagnostic Results Rate: other - afib rvr Rhythm: other ST Segments: no acute changes Last Vital Signs Date Time Temp Pulse Resp B/P Pulse Ox O2 Delivery O2 Flow Rate FiO2 10/02/16 12:21 100.2 92 24 120/52 91 Nasal Cannula 4.0 Status: unchanged Disposition: ADMITTED INPATIENT Condition: Serious Trav Quigley Oct 02, 2016 12:44
[2016-10-02] MEDS ORDERED: Unasyn 3gm Inj ONE (12:51)
[2016-10-02] MEDS: Albuterol ud Inhalation HHN SCH ×3 (13:02→13:20)
[2016-10-02 13:35] LABS: MEAN CORPUSCULAR HEMOGLOBIN 31.5 PG (27.0-31.0); MEAN CORPUSCULAR HGB CONC 31.8 G/DL (32.0-36.0); MEAN CORPUSCULAR VOLUME 99 FL (80-99); MEAN PLATELET VOLUME 8.8 FL (6.5-10.1); PLATELET COUNT 119 K/UL (150-450); RED BLOOD COUNT 2.52 M/UL (4.70-6.10); WHITE BLOOD COUNT 6.4 K/UL (4.8-10.8)
[2016-10-02 13:38] LABS: INR 1.1 (0.9-1.1); PROTHROMBIN TIME 11.1 SEC (9.30-11.50)
[2016-10-02 13:39] LABS: ABG PCO2 28.3 mmHg (35.0-45.0)
[2016-10-02 13:40] LABS: ALANINE AMINOTRANSFERASE 17 U/L (3-41); ASPARTATE AMINO TRANSFERASE 20 U/L (5-40); CALCIUM 8.6 mg/dL (8.6-10.2); CARBON DIOXIDE 22 mEQ/L (20-30); CREATININE 2.3 mg/dL (0.7-1.2); HEMOLYSIS 4; TOTAL PROTEIN 6.4 g/dL (6.6-8.7); TROPONIN I < 0.30 ng/mL (<=0.30)
[2016-10-02 13:40] LABS: APPEARANCE,URINE SLIGHTLY CLOUDY; KETONES,URINE NEGATIVE (NEGATIVE); LEUKOCYTE ESTERASE ,URINE 2+ (NEGATIVE); NITRITE,URINE NEGATIVE (NEGATIVE); PH,URINE 5 (4.5-8.0); PROTEIN,URINE 3+ (NEGATIVE); UROBILINOGEN,URINE NORMAL MG/DL (0.0-1.0)
[2016-10-02 13:40] LABS: ABG ALLEN TEST POSITIVE; ABG BASE EXCESS -3.3
[2016-10-02 13:53] LABS: AMORPHOUS SEDIMENT,UR FEW /LPF; BACTERIA,URINE FEW /HPF; RBC,URINE 0-2 /HPF (0 - 0); SQUAMOUS EPITHELIAL CELL,UR OCCASIONAL /LPF (NONE/OCC)
[2016-10-02 13:54] VITALS: BP 143/43
[2016-10-02 13:54] LABS: CHLORIDE 101 mEQ/L (98-107); POTASSIUM 4.2 mEQ/L (3.4-4.9); SODIUM 138 mEQ/L (135-145)
[2016-10-02] MEDS ORDERED: CEFEPIME IM (14:01)
[2016-10-02 14:16] LABS: ANISOCYTOSIS 1+; BAND NEUTROPHILS % (MANUAL) 2 % (0-8); BASOPHILS % (MANUAL) 0 % (0-2); EOSINOPHILS % (MANUAL) 0 % (0-3); LYMPHOCYTES % (MANUAL) 17 % (20-45); NEUTROPHILS % (MANUAL) 75 % (45-75); PLATELET ESTIMATE DECREASED; PLATELET MORPHOLOGY NORMAL; TOTAL CELLS COUNTED 100
[2016-10-02 14:23] VITALS: BP 133/66
[2016-10-02] MEDS ORDERED: Vancomycin 1gm inj IVPB ONE (15:21)
[2016-10-02 16:00] VITALS: BP 129/52
[2016-10-02] MEDS ORDERED: Morphine Sulfate 2mg/ml Inj IVP ONE (16:30)
--- NOTE | 2016-10-02 17:03 | Infectious Diseases Prog Note ---
Assessment/Plan Problems: (1) HCAP (healthcare-associated pneumonia) Assessment & Plan: will start cefepime and clindamycin empirically, and send sputum culture (2) Fever Assessment & Plan: due to the above, continue wide spectrum antibiotics, and tylenol (3) Sepsis Assessment & Plan: due to the above, will send blood culture and start wide spectrum antibiotics Subjective Allergies: Coded Allergies: No Known Allergies (Unverified , 04/13/15) Objective Vital Signs Last 24 Hour Vital Signs Date Time Temp Pulse Resp B/P Pulse Ox O2 Delivery O2 Flow Rate FiO2 10/02/16 16:29 98.2 93 21 129/52 96 Nasal Cannula 4.0 36 10/02/16 16:00 93 21 129/52 96 Nasal Cannula 4.0 10/02/16 14:23 98.2 110 18 133/66 92 Nasal Cannula 4.0 10/02/16 13:54 99.3 115 31 143/43 94 Nasal Cannula 4.0 10/02/16 13:43 91 18 95 Nasal Cannula 4.0 36 10/02/16 13:02 91 19 96 Nasal Cannula 3.0 32 10/02/16 13:02 91 18 Nasal Cannula 3.0 32 10/02/16 13:02 32 10/02/16 12:21 100.2 92 24 120/52 91 Nasal Cannula 4.0 Height (Feet): 5 Height (Inches): 11.00 Weight (Pounds): 175 Laboratory Tests Test 10/02/16 12:50 10/02/16 13:24 10/02/16 13:30 White Blood Count 6.4 K/UL (4.8-10.8) Red Blood Count 2.52 M/UL (4.70-6.10) L Hemoglobin 7.9 G/DL (14.2-18.0) L Hematocrit 24.9 % (42.0-52.0) L Mean Corpuscular Volume 99 FL (80-99) Mean Corpuscular Hemoglobin 31.5 PG (27.0-31.0) H Mean Corpuscular Hemoglobin Concent 31.8 G/DL (32.0-36.0) L Red Cell Distribution Width 15.0 % (11.6-14.8) H Platelet Count 119 K/UL (150-450) L Mean Platelet Volume 8.8 FL (6.5-10.1) Neutrophils (%) (Auto) % (45.0-75.0) Lymphocytes (%) (Auto) % (20.0-45.0) Monocytes (%) (Auto) % (1.0-10.0) Eosinophils (%) (Auto) % (0.0-3.0) Basophils (%) (Auto) % (0.0-2.0) Differential Total Cells Counted 100 Neutrophils % (Manual) 75 % (45-75) Lymphocytes % (Manual) 17 % (20-45) L Monocytes % (Manual) 6 % (1-10) Eosinophils % (Manual) 0 % (0-3) Basophils % (Manual) 0 % (0-2) Band Neutrophils 2 % (0-8) Platelet Estimate Decreased L Platelet Morphology Normal Anisocytosis 1+ Prothrombin Time 11.1 SEC (9.30-11.50) Prothromb Time International Ratio 1.1 (0.9-1.1) Activated Partial Thromboplast Time 33 SEC (23-33) Sodium Level 138 mEQ/L (135-145) Potassium Level 4.2 mEQ/L (3.4-4.9) Chloride Level 101 mEQ/L (98-107) Carbon Dioxide Level 22 mEQ/L (20-30) Blood Urea Nitrogen 68 mg/dL (7-23) H Creatinine 2.3 mg/dL (0.7-1.2) H Estimat Glomerular Filtration Rate mL/min (>60) Glucose Level 111 mg/dL (74-106) H Calcium Level 8.6 mg/dL (8.6-10.2) Total Bilirubin 0.3 mg/dL (0.0-1.2) Aspartate Amino Transf (AST/SGOT) 20 U/L (5-40) Alanine Aminotransferase (ALT/SGPT) 17 U/L (3-41) Alkaline Phosphatase 65 U/L (40-129) Troponin I < 0.30 ng/mL (<=0.30) Pro-B-Type Natriuretic Peptide 4773 pg/mL (0-450) H Total Protein 6.4 g/dL (6.6-8.7) L Albumin 3.2 g/dL (3.5-5.2) L Globulin 3.2 g/dL Albumin/Globulin Ratio 1.0 (1.0-2.7) Urine Color Pale yellow Urine Appearance Slightly cloudy Urine pH 5 (4.5-8.0) Urine Specific [place] 1.010 (1.005-1.035) Urine Protein 3+ (NEGATIVE) H Urine Glucose (UA) Negative (NEGATIVE) Urine Ketones Negative (NEGATIVE) Urine Occult Blood Negative (NEGATIVE) Urine Nitrite Negative (NEGATIVE) Urine Bilirubin Negative (NEGATIVE) Urine Urobilinogen Normal MG/DL (0.0-1.0) Urine Leukocyte Esterase 2+ (NEGATIVE) H Urine RBC 0-2 /HPF (0 - 0) H Urine WBC 5-10 /HPF (0 - 0) H Urine Squamous Epithelial Cells Occasional /LPF Urine Amorphous Sediment Few /LPF (NONE) H Urine Bacteria Few /HPF (NONE) Arterial Blood pH 7.463 (7.350-7.450) Arterial Blood Partial Pressure CO2 28.3 mmHg (35.0-45.0) L Arterial Blood Partial Pressure O2 74.7 mmHg (75.0-100.0) L Arterial Blood HCO3 19.8 mmol/L (22.0-26.0) L Arterial Blood Oxygen Saturation 94.9 % (92.0-98.0) Arterial Blood Base Excess -3.3 Sergey Test Positive Current Medications Medications (Trade) Dose Ordered Sig/Marci Route PRN Reason Start Time Stop Time Status Last Admin Dose Admin Ondansetron HCl (Zofran) 4 mg Q6H PRN IVP Nausea & Vomiting 10/02/16 16:00 11/01/16 15:59 Robles Mari M.D. Oct 02, 2016 17:03
[2016-10-02] MEDS ORDERED: Docusate 250mg cap ORAL SCH (18:00)
[2016-10-02] MEDS ORDERED: HydrALAZINE 50mg tab PEG SCH (18:00)
[2016-10-02] MEDS ORDERED: Bethanechol 25mg Tab ORAL SCH (18:00)
[2016-10-02] MEDS ORDERED: LORazepam 0.5mg tab ORAL PRN (18:00)
[2016-10-02] MEDS ORDERED: HydrALAZINE 50mg tab ORAL SCH ×2 (18:05→18:17)
[2016-10-02 18:30] VITALS: BP 133/87
[2016-10-02] MEDS ORDERED: Cefepime HCl 2 GM in D5W 110 ML IVPB ONE (18:30)
[2016-10-02] MEDS ORDERED: PROSCAR5 MG GT (18:55)
[2016-10-02] MEDS ORDERED: DOCUSATE SODIU100 MG GT (18:55)
[2016-10-02] MEDS ORDERED: HYDRALAZINE HCL50 MG GT (18:56)
[2016-10-02] MEDS ORDERED: LEVETIRACE100 MG/1 M GT (18:57)
[2016-10-02] MEDS ORDERED: TAMSULOSIN HCL0.4 MG GT (18:59)
[2016-10-02 19:53] VITALS: BP 120/58
--- NOTE | 2016-10-02 20:28 | History and Physical ---
History of Present Illness General Reason for Hospitalization: Fever Present Illness HPI Coverage for Dr. Lee. Allergies: Coded Allergies: No Known Allergies (Unverified , 04/13/15) Medication History Scheduled Amlodipine Besylate* (Amlodipine Besylate*), 5 MG GT TWICE A DAY, (Reported) Docusate Sodium* (Docusate Sodium*), 100 MG GT DAILY, (Reported) Ferrous Sulfate* (Ferrous Sulfate*), 1 TAB GT DAILY, (Reported) Finasteride* (Proscar*), 5 MG GT DAILY, (Reported) Hydralazine Hcl* (Hydralazine Hcl*), 50 MG GT BID, (Reported) Levetiracetam* (Levetiracetam*), 500 MG GT EVERY 12 HOURS, (Reported) Levothyroxine Sodium* (Levothyroxine Sodium*), 25 MCG PEG DAILY, (Reported) Tamsulosin Hcl (Tamsulosin Hcl*), 0.4 MG GT BEDTIME, (Reported) [Cefepime], 2 GM IM DAILY, (Reported) Scheduled PRN Lorazepam* (Lorazepam*), 1 MG GT Q8HR PRN for For Anxiety, (Reported) Discontinued Medications Acetaminophen (Acetaminophen), 650 MG ORAL Q4HR PRN for Prn Headache/Temp > 101, (Reported) Discontinued Reason: Pt stopped taking med Acetaminophen (Tylenol), 325 MG ORAL Q4HR PRN for Prn Headache/Temp > 101, ( Reported) Discontinued Reason: Pt stopped taking med Allopurinol* (Allopurinol*), 100 MG ORAL DAILY, (Reported) Discontinued Reason: Pt stopped taking med Ascorbic Acid* (Ascorbic Acid*), 500 MG ORAL DAILY, (Reported) Discontinued Reason: Pt stopped taking med Bethanechol Chl* (Bethanechol Chloride*), 25 MG ORAL THREE TIMES A DAY, ( Reported) Discontinued Reason: Pt stopped taking med Cranberry Fruit Concentrate (Cranberry), 450 MG PO DAILY, (Reported) Discontinued Reason: Pt stopped taking med Diphenhydramine HCl (Diphenhydramine HCl), 50 MG ORAL Q6H PRN for Itching, ( Reported) Discontinued Reason: Pt stopped taking med Divalproex Sodium* (Depakote*), 125 MG PO BID, (Reported) Discontinued Reason: Pt stopped taking med Docusate Sodium (Docusate Sodium), 250 MG ORAL TWICE A DAY, (Reported) Discontinued Reason: Pt stopped taking med Donepezil Hcl* (Donepezil Hcl*), 10 MG ORAL DAILY, (Reported) Discontinued Reason: Pt stopped taking med Furosemide* (Lasix*), 40 MG ORAL DAILY, (Reported) Discontinued Reason: Pt stopped taking med Ipratropium/Albuterol Sulfate (Iprat-Albut 0.5-3(2.5) Mg/3 Ml), 3 ML IH QID PRN for Shortness of Breath, (Reported) Discontinued Reason: Pt stopped taking med Iron,Carbonyl (Feosol), 325 MG PO BID, (Reported) Discontinued Reason: Pt stopped taking med Losartan Potassium* (Cozaar*), 100 MG ORAL DAILY, (Reported) Discontinued Reason: Pt stopped taking med Losartan Potassium* (Losartan Potassium*), 50 MG ORAL DAILY, (Reported) Discontinued Reason: Pt stopped taking med Memantine Hcl* (Namenda*), 10 MG ORAL DAILY, (Reported) Discontinued Reason: Pt stopped taking med Multivitamin (Multi Vitamin Daily), 1 TAB ORAL DAILY, (Reported) Discontinued Reason: Pt stopped taking med Potassium (Potassium), 40 MEQ PO DAILY, (Reported) Discontinued Reason: Pt stopped taking med Sertraline Hcl* (Zoloft*), 50 MG ORAL DAILY, (Reported) Discontinued Reason: Pt stopped taking med Simvastatin (Zocor), 20 MG ORAL BEDTIME, (Reported) Discontinued Reason: Pt stopped taking med Valproic Acid (Depakene), 250 MG ORAL DAILY, (Reported) Discontinued Reason: Pt stopped taking med Warfarin Sod* (Coumadin*), 3 MG ORAL QPM, (Reported) Discontinued Reason: Pt stopped taking med Zinc Sulfate (Zinc Sulfate*), 220 MG ORAL DAILY, (Reported) Discontinued Reason: Pt stopped taking med Patient History Healthcare decision maker Resuscitation status Advanced Directive on File Physical Exam Last 24 Hour Vital Signs Date Time Temp Pulse Resp B/P Pulse Ox O2 Delivery O2 Flow Rate FiO2 10/02/16 19:53 98.2 81 20 120/58 94 Nasal Cannula 2.0 10/02/16 18:30 97.7 95 20 133/87 97 Nasal Cannula 2.0 10/02/16 16:29 98.2 93 21 129/52 96 Nasal Cannula 4.0 36 10/02/16 16:00 93 21 129/52 96 Nasal Cannula 4.0 10/02/16 14:23 98.2 110 18 133/66 92 Nasal Cannula 4.0 10/02/16 13:54 99.3 115 31 143/43 94 Nasal Cannula 4.0 10/02/16 13:43 91 18 95 Nasal Cannula 4.0 36 10/02/16 13:02 91 19 96 Nasal Cannula 3.0 32 10/02/16 13:02 91 18 Nasal Cannula 3.0 32 10/02/16 13:02 32 10/02/16 12:21 100.2 92 24 120/52 91 Nasal Cannula 4.0 Laboratory Tests Test 10/02/16 12:50 10/02/16 13:24 10/02/16 13:30 White Blood Count 6.4 K/UL (4.8-10.8) Red Blood Count 2.52 M/UL (4.70-6.10) L Hemoglobin 7.9 G/DL (14.2-18.0) L Hematocrit 24.9 % (42.0-52.0) L Mean Corpuscular Volume 99 FL (80-99) Mean Corpuscular Hemoglobin 31.5 PG (27.0-31.0) H Mean Corpuscular Hemoglobin Concent 31.8 G/DL (32.0-36.0) L Red Cell Distribution Width 15.0 % (11.6-14.8) H Platelet Count 119 K/UL (150-450) L Mean Platelet Volume 8.8 FL (6.5-10.1) Neutrophils (%) (Auto) % (45.0-75.0) Lymphocytes (%) (Auto) % (20.0-45.0) Monocytes (%) (Auto) % (1.0-10.0) Eosinophils (%) (Auto) % (0.0-3.0) Basophils (%) (Auto) % (0.0-2.0) Differential Total Cells Counted 100 Neutrophils % (Manual) 75 % (45-75) Lymphocytes % (Manual) 17 % (20-45) L Monocytes % (Manual) 6 % (1-10) Eosinophils % (Manual) 0 % (0-3) Basophils % (Manual) 0 % (0-2) Band Neutrophils 2 % (0-8) Platelet Estimate Decreased L Platelet Morphology Normal Anisocytosis 1+ Prothrombin Time 11.1 SEC (9.30-11.50) Prothromb Time International Ratio 1.1 (0.9-1.1) Activated Partial Thromboplast Time 33 SEC (23-33) Sodium Level 138 mEQ/L (135-145) Potassium Level 4.2 mEQ/L (3.4-4.9) Chloride Level 101 mEQ/L (98-107) Carbon Dioxide Level 22 mEQ/L (20-30) Blood Urea Nitrogen 68 mg/dL (7-23) H Creatinine 2.3 mg/dL (0.7-1.2) H Estimat Glomerular Filtration Rate mL/min (>60) Glucose Level 111 mg/dL (74-106) H Calcium Level 8.6 mg/dL (8.6-10.2) Total Bilirubin 0.3 mg/dL (0.0-1.2) Aspartate Amino Transf (AST/SGOT) 20 U/L (5-40) Alanine Aminotransferase (ALT/SGPT) 17 U/L (3-41) Alkaline Phosphatase 65 U/L (40-129) Troponin I < 0.30 ng/mL (<=0.30) Pro-B-Type Natriuretic Peptide 4773 pg/mL (0-450) H Total Protein 6.4 g/dL (6.6-8.7) L Albumin 3.2 g/dL (3.5-5.2) L Globulin 3.2 g/dL Albumin/Globulin Ratio 1.0 (1.0-2.7) Urine Color Pale yellow Urine Appearance Slightly cloudy Urine pH 5 (4.5-8.0) Urine Specific [place] 1.010 (1.005-1.035) Urine Protein 3+ (NEGATIVE) H Urine Glucose (UA) Negative (NEGATIVE) Urine Ketones Negative (NEGATIVE) Urine Occult Blood Negative (NEGATIVE) Urine Nitrite Negative (NEGATIVE) Urine Bilirubin Negative (NEGATIVE) Urine Urobilinogen Normal MG/DL (0.0-1.0) Urine Leukocyte Esterase 2+ (NEGATIVE) H Urine RBC 0-2 /HPF (0 - 0) H Urine WBC 5-10 /HPF (0 - 0) H Urine Squamous Epithelial Cells Occasional /LPF Urine Amorphous Sediment Few /LPF (NONE) H Urine Bacteria Few /HPF (NONE) Arterial Blood pH 7.463 (7.350-7.450) Arterial Blood Partial Pressure CO2 28.3 mmHg (35.0-45.0) L Arterial Blood Partial Pressure O2 74.7 mmHg (75.0-100.0) L Arterial Blood HCO3 19.8 mmol/L (22.0-26.0) L Arterial Blood Oxygen Saturation 94.9 % (92.0-98.0) Arterial Blood Base Excess -3.3 Sergey Test Positive Height (Feet): 5 Height (Inches): 11.00 Weight (Pounds): 175 Medications Current Medications Medications (Trade) Dose Ordered Sig/Marci Route PRN Reason Start Time Stop Time Status Last Admin Dose Admin Acetaminophen (Tylenol) 325 mg Q4H PRN ORAL Headache/Temp > 101 10/02/16 17:00 11/01/16 16:59 Allopurinol (Zyloprim) 100 mg DAILY ORAL 10/03/16 09:00 11/02/16 08:59 Amlodipine Besylate (Norvasc) 5 mg Q12HR GT 10/02/16 21:00 11/01/16 20:59 Ascorbic Acid (Vitamin C) 500 mg DAILY GT 10/03/16 09:00 11/02/16 08:59 Cefepime HCl/ Dextrose (Maxipime/D5W) 55 ml @ 110 mls/hr Q24H IVPB 10/03/16 18:00 10/10/16 17:59 Clindamycin HCl/ Dextrose 50 ml @ 100 mls/hr Q8HR IV 10/02/16 20:00 10/09/16 19:59 Diphenhydramine HCl (Benadryl) 50 mg Q6H PRN ORAL Itching 10/02/16 17:00 11/01/16 16:59 Docusate Sodium (Colace) 250 mg TWICE A DAY ORAL 10/02/16 18:00 11/01/16 17:59 Donepezil HCl (Aricept) 10 mg DAILY ORAL 10/03/16 09:00 11/02/16 08:59 Ferrous Sulfate (Feosol) 300 mg DAILY GT 10/03/16 09:00 11/02/16 08:59 Finasteride (Proscar) 5 mg DAILY GT 10/03/16 09:00 11/02/16 08:59 Hydralazine HCl (Apresoline) 50 mg BID ORAL 10/02/16 18:17 11/01/16 17:59 Levetiracetam (Keppra) 500 mg Q12HR GT 10/02/16 21:00 11/01/16 20:59 Levothyroxine Sodium (Synthroid) 25 mcg DAILY ORAL 10/03/16 09:00 11/02/16 08:59 Lorazepam (Ativan) 0.5 mg DAILYPRN PRN ORAL ANXIETY 10/02/16 18:00 10/09/16 17:59 Losartan Potassium (Cozaar) 50 mg DAILY ORAL 10/03/16 09:00 11/02/16 08:59 Memantine (Namenda) 10 mg DAILY ORAL 10/03/16 09:00 11/02/16 08:59 Multivitamins (Multivitamins) 1 tab DAILY ORAL 10/03/16 09:00 11/02/16 08:59 Ondansetron HCl 4 mg 4 mg Q6H PRN IVP Nausea & Vomiting 10/02/16 16:00 11/01/16 15:59 Sertraline HCl (Zoloft) 50 mg DAILY ORAL 10/03/16 09:00 11/02/16 08:59 Tamsulosin HCl (Flomax) 0.4 mg BEDTIME ORAL 10/02/16 21:00 11/01/16 20:59 Zinc Sulfate (Zinc Sulfate) 220 mg DAILY ORAL 10/03/16 09:00 11/02/16 08:59 Assessment/Plan Problem List: (1) Atrial fibrillation Assessment & Plan: Cardiology consult. Unclear why patient was not on anticoagulation. Was before? ICD Codes: I48.91 - Unspecified atrial fibrillation SNOMED: 13795667 (2) Fever Assessment & Plan: Probably due to to pneumonia. ID consult - Dr. Mari to see. ICD Codes: R50.9 - Fever, unspecified SNOMED: 439887064 (3) Renal insufficiency Assessment & Plan: Chronic probably. Unclear if any acute insult. Renal consult. ICD Codes: N28.9 - Disorder of kidney and ureter, unspecified SNOMED: 267391987 (4) Anemia Assessment & Plan: Might need transfusion. Heme consult. ICD Codes: D64.9 - Anemia, unspecified SNOMED: 063225038 (5) HCAP (healthcare-associated pneumonia) Assessment & Plan: CXR at SNF showed left side infiltrate. Clinically consistent with pneumonia. ID conulted. Antibiotics noted. ICD Codes: J18.9 - Pneumonia, unspecified organism SNOMED: 298589681 (6) Respiratory insufficiency Assessment & Plan: On supplemental O2 at baseline. Pulmonary consult. ICD Codes: R06.89 - Other abnormalities of breathing SNOMED: 968601531 RICHA MIGUEL Oct 02, 2016 20:28
[2016-10-02] MEDS ORDERED: Tamsulosin 0.4mg cap ORAL SCH (21:00)
[2016-10-02] MEDS: Heparin 5000 units/ml inj SUBQ SCH (21:00)
[2016-10-02] MEDS: DuoNeb 0.5-3(2.5)mg/3ml neb HHN PRN (21:51)
--- NOTE | 2016-10-02 21:53 | Consultation ---
Consult Note Assessment/Plan Hematology/Onc Consult Requesting MD: Seth Lee Date of service: 10/02/16 ID: Dear Dr. Lee, Mr. Jarrod Moore is a pleasant 85 yo male well known to our service with a history of dementia, hypertensive heart disease, and hypothyroidism. He was transferred from alf facility with complaints of abnml labs. In the past was seen in 03/2015 and 07/2016 for altered mental status. He has been delirious and has recently been admitted for [facility] as well. He has no complaints. He was noted to have anemia and a elevated INR and the hematology service was consulted. In addition he potentialy has gallstone pancreatitis and is s/p a biliary stent, has been evaluated by CTs on past admissions. PAST MEDICAL HISTORY: As above. PAST SURGICAL HISTORY: None. MEDICATIONS: Home medications reconciled and reviewed. ALLERGIES: None. FAMILY HISTORY: None. SOCIAL HISTORY: The patient denies history of tobacco, ethanol, or drugs. REVIEW OF SYSTEMS: GENERAL: Positive fevers. No chills or night sweats. HEENT: No headaches or visual changes. No sore throat. CARDIOPULMONARY: No chest pain or shortness of breath. GASTROINTESTINAL: No nausea. No vomiting. No diarrhea. GENITOURINARY: No urgency or frequency. MUSCULOSKELETAL: No joint pain or swelling. NEUROLOGIC: No history of seizures. PHYSICAL EXAMINATION: Last 24 Hour Vital Signs Date Time Temp Pulse Resp B/P Pulse Ox O2 Delivery O2 Flow Rate FiO2 10/02/16 19:53 98.2 81 20 120/58 94 Nasal Cannula 2.0 10/02/16 18:30 97.7 95 20 133/87 97 Nasal Cannula 2.0 10/02/16 16:29 98.2 93 21 129/52 96 Nasal Cannula 4.0 36 10/02/16 16:00 93 21 129/52 96 Nasal Cannula 4.0 10/02/16 14:23 98.2 110 18 133/66 92 Nasal Cannula 4.0 10/02/16 13:54 99.3 115 31 143/43 94 Nasal Cannula 4.0 10/02/16 13:43 91 18 95 Nasal Cannula 4.0 36 10/02/16 13:02 91 19 96 Nasal Cannula 3.0 32 10/02/16 13:02 91 18 Nasal Cannula 3.0 32 10/02/16 13:02 32 10/02/16 12:21 100.2 92 24 120/52 91 Nasal Cannula 4.0 VITAL SIGNS: reviewed as per below GENERAL: The patient is a well-developed male. He is awake and somewhat lethargic, but is arousable HEENT: His pupils are equal, round, and reactive to light. Oropharynx is clear. NECK: Supple. There is no lymphadenopathy. HEART: Regular rate and rhythm. LUNGS: Clear. ABDOMEN: Soft, slightly ttp, nondistended with normoactive bowel sounds. EXTREMITIES: Without clubbing or cyanosis. Laboratory Tests Test 10/02/16 12:50 10/02/16 13:24 10/02/16 13:30 White Blood Count 6.4 K/UL (4.8-10.8) Red Blood Count 2.52 M/UL (4.70-6.10) L Hemoglobin 7.9 G/DL (14.2-18.0) L Hematocrit 24.9 % (42.0-52.0) L Mean Corpuscular Volume 99 FL (80-99) Mean Corpuscular Hemoglobin 31.5 PG (27.0-31.0) H Mean Corpuscular Hemoglobin Concent 31.8 G/DL (32.0-36.0) L Red Cell Distribution Width 15.0 % (11.6-14.8) H Platelet Count 119 K/UL (150-450) L Mean Platelet Volume 8.8 FL (6.5-10.1) Neutrophils (%) (Auto) % (45.0-75.0) Lymphocytes (%) (Auto) % (20.0-45.0) Monocytes (%) (Auto) % (1.0-10.0) Eosinophils (%) (Auto) % (0.0-3.0) Basophils (%) (Auto) % (0.0-2.0) Differential Total Cells Counted 100 Neutrophils % (Manual) 75 % (45-75) Lymphocytes % (Manual) 17 % (20-45) L Monocytes % (Manual) 6 % (1-10) Eosinophils % (Manual) 0 % (0-3) Basophils % (Manual) 0 % (0-2) Band Neutrophils 2 % (0-8) Platelet Estimate Decreased L Platelet Morphology Normal Anisocytosis 1+ Prothrombin Time 11.1 SEC (9.30-11.50) Prothromb Time International Ratio 1.1 (0.9-1.1) Activated Partial Thromboplast Time 33 SEC (23-33) Sodium Level 138 mEQ/L (135-145) Potassium Level 4.2 mEQ/L (3.4-4.9) Chloride Level 101 mEQ/L (98-107) Carbon Dioxide Level 22 mEQ/L (20-30) Blood Urea Nitrogen 68 mg/dL (7-23) H Creatinine 2.3 mg/dL (0.7-1.2) H Estimat Glomerular Filtration Rate mL/min (>60) Glucose Level 111 mg/dL (74-106) H Calcium Level 8.6 mg/dL (8.6-10.2) Total Bilirubin 0.3 mg/dL (0.0-1.2) Aspartate Amino Transf (AST/SGOT) 20 U/L (5-40) Alanine Aminotransferase (ALT/SGPT) 17 U/L (3-41) Alkaline Phosphatase 65 U/L (40-129) Troponin I < 0.30 ng/mL (<=0.30) Pro-B-Type Natriuretic Peptide 4773 pg/mL (0-450) H Total Protein 6.4 g/dL (6.6-8.7) L Albumin 3.2 g/dL (3.5-5.2) L Globulin 3.2 g/dL Albumin/Globulin Ratio 1.0 (1.0-2.7) Urine Color Pale yellow Urine Appearance Slightly cloudy Urine pH 5 (4.5-8.0) Urine Specific [place] 1.010 (1.005-1.035) Urine Protein 3+ (NEGATIVE) H Urine Glucose (UA) Negative (NEGATIVE) Urine Ketones Negative (NEGATIVE) Urine Occult Blood Negative (NEGATIVE) Urine Nitrite Negative (NEGATIVE) Urine Bilirubin Negative (NEGATIVE) Urine Urobilinogen Normal MG/DL (0.0-1.0) Urine Leukocyte Esterase 2+ (NEGATIVE) H Urine RBC 0-2 /HPF (0 - 0) H Urine WBC 5-10 /HPF (0 - 0) H Urine Squamous Epithelial Cells Occasional /LPF Urine Amorphous Sediment Few /LPF (NONE) H Urine Bacteria Few /HPF (NONE) Arterial Blood pH 7.463 (7.350-7.450) Arterial Blood Partial Pressure CO2 28.3 mmHg (35.0-45.0) L Arterial Blood Partial Pressure O2 74.7 mmHg (75.0-100.0) L Arterial Blood HCO3 19.8 mmol/L (22.0-26.0) L Arterial Blood Oxygen Saturation 94.9 % (92.0-98.0) Arterial Blood Base Excess -3.3 Sergey Test Positive Assessment/Recs: # Anemia secondary to chronic disease - obtain a anemia workup and also GI service is on the case --> hgb goal >7, transfuse as needed # Anemia secondary to kidney disease - epogen as needed # RLE DVT hx however has recurrent GI bleed therefore no coumadin or lovenox --> have attempte several times at anticoagulating and has bleed each time # MARCO A on CKD, baseline Cr is 1.5 # Hx of leukocytosis secondary to infection/stress-> from before resolved # Hx thrombocytopenia secondary to infection likely-> from before resolved # Distal common bile duct stone with moderate biliary ductal dilatation s/p sphincterotomy and stone removal and stent placement # Hypertension # Hypothyroidism # Altered mental status # Dehydration. # s/p TURP # Bilateral hydroureter/hydronephrosis Esdras Moraes Oct 02, 2016 21:53
[2016-10-02] MEDS ORDERED: Tamsulosin 0.4mg cap GT SCH (22:02)
[2016-10-02] MEDS ORDERED: LORazepam 0.5mg tab GT PRN (22:03)
[2016-10-02] MEDS ORDERED: HydrALAZINE 50mg tab GT SCH (22:03)
[2016-10-02] MEDS: Docusate 100mg/10ml Liq GT SCH (22:17)
[2016-10-02] MEDS: Clindamycin 600mg 50 ML IV SCH (22:17)
[2016-10-02] MEDS: levETIRAcetam 500mg/5ml Liquid GT SCH (22:52)
[2016-10-03 00:21] VITALS: BP 137/58
--- NOTE | 2016-10-03 02:00 | Consultation ---
DATE OF CONSULTATION: 10/02/2016 INFECTIOUS DISEASE CONSULTATION REQUESTING PHYSICIAN: Seth Lee M.D. REASON FOR CONSULTATION: Fever, sepsis, pneumonia, and recommendation for antibiotics therapy. HISTORY OF PRESENT ILLNESS: Mr. Oscar Yu is an 85-year-old male with past medical history of psych disorder, coronary artery disease, hypertension, subarachnoid hemorrhage, Alzheimer's, and Parkinson, who was sent from long term for fever and productive cough. The patient was found to have temperature of 101 at the long term. A chest x-ray showed infiltrate in both sides and was sent to the emergency room for further evaluation and management. The patient was found to be febrile in the emergency room. Chest x-ray showed lung infiltration. He received vancomycin and Unasyn and I was consulted by the primary provider for antibiotic treatment and further management. As of note, the patient is poor historian, cannot provide any history. History was mainly obtained from the medical record. REVIEW OF SYSTEMS: Unable to obtain at this point. PAST MEDICAL HISTORY: Significant for coronary artery disease, hypertension, GERD, psych disorder, subarachnoid hemorrhage, dementia, Alzheimer, Parkinson's, and encephalopathy. PAST SURGICAL HISTORY: G-tube placement. FAMILY HISTORY: Unable to obtain. SOCIAL HISTORY: He lives in the long-term facility. No recent drugs, tobacco, or alcohol. ALLERGIES: No known drug allergies. MEDICATIONS: The patient received vancomycin and Unasyn in the emergency room. For further details, please refer to M[facility]. LABORATORY DATA: Labs shows white count of 6.4, hemoglobin of 7.9, BUN of 68, and creatinine of 2.3. Urine analysis showed +2 leukocyte esterase, WBC 5 to 10, and few bacteria. IMAGING: Chest x-ray showed bilateral infiltrate. PHYSICAL EXAMINATION: VITAL SIGNS: Temperature 98.2, pulse 93, respirations 21, blood pressure 129/52, and saturation 96% on 4 L nasal cannula. GENERAL: Elderly male, lying in bed, demented, awake and alert, not in distress. HEENT: Normocephalic and atraumatic. Pupils reactive to light. Moist oral mucosa. NECK: Supple. No lymphadenopathy. CARDIOVASCULAR: Regular rate and rhythm. In fact Tachycardic. S1 and S2. No murmur. LUNGS: Diminished breathing sound on both sides with crackles. Normal breathing effort. ABDOMEN: Soft, nontender, and nondistended. Positive bowel sounds. No hepatosplenomegaly. No ascites. EXTREMITIES: No edema or cyanosis. SKIN: No rash or hives. ASSESSMENT AND RECOMMENDATION: 1. Healthcare-acquired pneumonia. We will start the patient on cefepime and clindamycin empirically and send sputum culture. 2. Fever due to the above. Continue wide-spectrum antibiotics and Tylenol. 3. Sepsis due to the above. We will send blood culture and start wide-spectrum antibiotics therapy. 4. Acute respiratory failure due to pneumonia. Continue high-flow oxygen and nebulizer. Monitor ABG. Robles Mari M.D. DR: VIVIAN JOB#: [id number] CC:
[2016-10-03] MEDS: DuoNeb 0.5-3(2.5)mg/3ml neb HHN PRN (03:57)
[2016-10-03 04:30] VITALS: BP 109/51
[2016-10-03] MEDS: Clindamycin 600mg 50 ML IV SCH ×3 (06:31→21:34)
[2016-10-03] MEDS: Levothyroxine 25mcg tab GT SCH (06:31)
[2016-10-03 08:08] VITALS: BP 105/57
[2016-10-03] MEDS ORDERED: Levothyroxine 25mcg tab ORAL SCH (09:00)
[2016-10-03] MEDS: Heparin 5000 units/ml inj SUBQ SCH ×2 (09:00→21:00)
[2016-10-03] MEDS ORDERED: Donepezil 10mg tab GT SCH (09:00)
[2016-10-03] MEDS ORDERED: Losartan 50mg tab GT SCH (09:00)
[2016-10-03] MEDS: Docusate 100mg/10ml Liq GT SCH ×2 (09:00→17:31)
[2016-10-03] MEDS: Zinc Sulfate 220mg cap GT SCH (09:31)
[2016-10-03] MEDS: levETIRAcetam 500mg/5ml Liquid GT SCH ×2 (09:31→21:35)
[2016-10-03] MEDS: Multivitamins W/Minerals 15 ML UDC GT SCH (09:31)
[2016-10-03] MEDS: Ferrous Sulfate 300 MG/5 ML UDC GT SCH (09:31)
[2016-10-03] MEDS: Allopurinol 100mg Tab GT SCH (09:32)
[2016-10-03] MEDS: Memantine 10mg tab GT SCH (09:32)
[2016-10-03] MEDS: Ascorbic Acid 500mg tab GT SCH (09:32)
[2016-10-03] MEDS: Sertraline 50mg tab GT SCH (09:32)
--- NOTE | 2016-10-03 11:04 | Consultation ---
Consult Note Consult Note asked to eval for renal failure- Known to me from his previous admission Patient is 85-year-old male brought in by EMS after increased fever and productive cough. The patient had prior history of DO NOT RESUSCITATE status. The patient was noted to be febrile at his nursing of 101 temperature. Chest x -ray showed infiltrate. The patient was sent to the hospital for further evaluation and treatment. 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 History is limited by patient's mental status. Hx Cardiac Problems: Yes Hx Hypertension: Yes Hx Gastrointestinal Problems: Yes History Of Psychiatric Problem: Yes Hx Neurological Problems: Yes Hx Cerebrovascular Accident: No - SUBARACNOID HEMORAGE Hx Dementia: Yes Hx Alzheimer's Disease: Yes Hx Parkinson's Disease: Yes Hx Speech Problem: Yes - communicate deficit Hx Weakness: Yes Examined and data reviewed Assessment/Plan Cr 2.3 Assessment/Plan status: # MARCO A on CKD, # Dehydration # Admitted with pneumonia and sepsis Other: # h/o Bilateral hydroureter/hydronephrosis # S/P TURP # Anemia secondary to chronic disease # Anemia secondary to kidney disease # Distal common bile duct stone with moderate biliary ductal dilatation s/p sphincterotomy and stone removal and stent placement # Hypertension # Hypothyroidism # Sz disorder Plan: Hydrate- Adjust BP meds- Anemia damon- Antibiotics and pulmonary support TAWANNA ONEIL Oct 03, 2016 11:04
[2016-10-03] MEDS ORDERED: D5NS 1,000 ML IV ONE (11:30)
[2016-10-03 11:49] VITALS: BP 115/56
--- NOTE | 2016-10-03 12:11 | Diagnostic Imaging Report ---
Indication: Abdominal pain Comparison: None Single view of the abdomen obtained Findings: Bowel gas pattern is nonspecific. Cholecystectomy clips, IVC filter, osteopenia and some degenerative changes of the lumbar spine are noted. Impression: No acute findings
[2016-10-03 13:02] LABS: URIC ACID 7.4 mg/dL (3.0-7.5)
--- NOTE | 2016-10-03 15:30 | Cardiac Electrophysiology PN ---
Subjective Subjective [id number] Objective Last 24 Hour Vital Signs Date Time Temp Pulse Resp B/P Pulse Ox O2 Delivery O2 Flow Rate FiO2 10/03/16 12:58 80 10/03/16 11:49 97.9 75 20 115/56 94 Nasal Cannula 4.0 10/03/16 10:49 79 20 Nasal Cannula 3.0 32 10/03/16 10:49 94 Nasal Cannula 4.0 36 10/03/16 10:49 Nasal Cannula 4.0 36 10/03/16 09:00 105/70 10/03/16 09:00 105/70 10/03/16 09:00 72 105/70 10/03/16 08:08 97.9 70 20 105/57 94 Nasal Cannula 4.0 10/03/16 07:57 70 10/03/16 04:30 97.7 68 20 109/51 94 Room Air 10/03/16 04:05 82 22 94 Nasal Cannula 4.0 36 10/03/16 04:00 67 10/03/16 03:56 82 20 91 Nasal Cannula 4.0 36 10/03/16 03:56 36 10/03/16 00:21 98.1 83 20 137/58 95 Nasal Cannula 2.0 10/03/16 00:00 79 10/02/16 22:20 87 137/58 10/02/16 21:59 76 20 Nasal Cannula 3.0 32 10/02/16 21:58 76 20 97 Nasal Cannula 3.0 32 10/02/16 21:52 36 10/02/16 21:50 94 Nasal Cannula 4.0 36 10/02/16 21:50 Nasal Cannula 4.0 36 10/02/16 21:45 84 22 94 Nasal Cannula 4.0 36 10/02/16 20:00 78 10/02/16 19:53 98.2 81 20 120/58 94 Nasal Cannula 2.0 10/02/16 18:30 97.7 95 20 133/87 97 Nasal Cannula 2.0 10/02/16 16:29 98.2 93 21 129/52 96 Nasal Cannula 4.0 36 10/02/16 16:00 93 21 129/52 96 Nasal Cannula 4.0 Intake and Output 10/02/16 10/03/16 19:00 07:00 Intake Total 610 ml Output Total 3 ml Balance 610 ml -3 ml Intake Oral 0 ml IV Total 610 ml Output Urine Total 3 ml Laboratory Tests Test 10/03/16 12:10 Uric Acid 7.4 mg/dL (3.0-7.5) Iron Level 19 ug/dL (59-158) L Total Iron Binding Capacity 172 ug/dL (250-400) L Percent Iron Saturation 11 % (15-50) L Unsaturated Iron Binding 153 ug/dL (112-346) Vitamin B12 Level 456 pg/mL (211-946) Folate Pending RAKESH ALEXANDER Oct 03, 2016 15:30
--- NOTE | 2016-10-03 15:34 | Infectious Diseases Prog Note ---
Assessment/Plan Problems: (1) HCAP (healthcare-associated pneumonia) Assessment & Plan: on cefepime and clindamycin empirically, await sputum culture (2) Fever Assessment & Plan: due to the above, continue wide spectrum antibiotics, and tylenol (3) Sepsis Assessment & Plan: due to the above, await blood culture, continue wide spectrum antibiotics Subjective ROS Limited/Unobtainable: Yes Allergies: Coded Allergies: No Known Allergies (Unverified , 04/13/15) Subjective he was lying in bed, comfortable, nonverbal, doesn't follow commands . Objective Vital Signs Last 24 Hour Vital Signs Date Time Temp Pulse Resp B/P Pulse Ox O2 Delivery O2 Flow Rate FiO2 10/03/16 12:58 80 10/03/16 11:49 97.9 75 20 115/56 94 Nasal Cannula 4.0 10/03/16 10:49 79 20 Nasal Cannula 3.0 32 10/03/16 10:49 94 Nasal Cannula 4.0 36 10/03/16 10:49 Nasal Cannula 4.0 36 10/03/16 09:00 105/70 10/03/16 09:00 105/70 10/03/16 09:00 72 105/70 10/03/16 08:08 97.9 70 20 105/57 94 Nasal Cannula 4.0 10/03/16 07:57 70 10/03/16 04:30 97.7 68 20 109/51 94 Room Air 10/03/16 04:05 82 22 94 Nasal Cannula 4.0 36 10/03/16 04:00 67 10/03/16 03:56 82 20 91 Nasal Cannula 4.0 36 10/03/16 03:56 36 10/03/16 00:21 98.1 83 20 137/58 95 Nasal Cannula 2.0 10/03/16 00:00 79 10/02/16 22:20 87 137/58 10/02/16 21:59 76 20 Nasal Cannula 3.0 32 10/02/16 21:58 76 20 97 Nasal Cannula 3.0 32 10/02/16 21:52 36 10/02/16 21:50 94 Nasal Cannula 4.0 36 10/02/16 21:50 Nasal Cannula 4.0 36 10/02/16 21:45 84 22 94 Nasal Cannula 4.0 36 10/02/16 20:00 78 10/02/16 19:53 98.2 81 20 120/58 94 Nasal Cannula 2.0 10/02/16 18:30 97.7 95 20 133/87 97 Nasal Cannula 2.0 10/02/16 16:29 98.2 93 21 129/52 96 Nasal Cannula 4.0 36 10/02/16 16:00 93 21 129/52 96 Nasal Cannula 4.0 Height (Feet): 5 Height (Inches): 11.00 Weight (Pounds): 175 General Appearance: WD/WN, no acute distress HEENT: normocephalic, atraumatic, anicteric Respiratory/Chest: chest wall non-tender, no respiratory distress, no accessory muscle use, decreased breath sounds, crackles/rales Cardiovascular: normal peripheral pulses, normal rate, regular rhythm, no gallop/murmur, no JVD Abdomen: normal bowel sounds, soft, non tender, no organomegaly, non distended , no mass Extremities: no cyanosis, no clubbing Skin: no rash, no lesions Laboratory Tests Test 10/03/16 12:10 Uric Acid 7.4 mg/dL (3.0-7.5) Iron Level 19 ug/dL (59-158) L Total Iron Binding Capacity 172 ug/dL (250-400) L Percent Iron Saturation 11 % (15-50) L Unsaturated Iron Binding 153 ug/dL (112-346) Vitamin B12 Level 456 pg/mL (211-946) Folate Pending Current Medications Medications (Trade) Dose Ordered Sig/Marci Route PRN Reason Start Time Stop Time Status Last Admin Dose Admin Acetaminophen (Tylenol) 325 mg Q4H PRN ORAL Headache/Temp > 101 10/02/16 17:00 11/01/16 16:59 Albuterol/ Ipratropium (DuoNeb 0.5-3(2.5)mg/3ml) 3 ml Q6HRT PRN HHN Shortness of Breath 10/03/16 01:00 10/08/16 00:59 10/03/16 03:57 Allopurinol (Zyloprim) 100 mg DAILY GT 10/03/16 09:00 11/02/16 08:59 10/03/16 09:32 Amlodipine Besylate (Norvasc) 2.5 mg DAILY GT 10/04/16 09:00 11/03/16 08:59 Ascorbic Acid (Vitamin C) 500 mg DAILY GT 10/03/16 09:00 11/02/16 08:59 10/03/16 09:32 Cefepime HCl/ Dextrose (Maxipime/D5W) 55 ml @ 110 mls/hr Q24H IVPB 10/03/16 18:00 10/10/16 17:59 Clindamycin HCl/ Dextrose 50 ml @ 100 mls/hr Q8HR IV 10/02/16 20:00 10/09/16 19:59 10/03/16 14:16 Clonidine HCl (Catapres) 0.1 mg Q4H PRN ORAL bp over 160 syst 10/03/16 12:00 11/02/16 11:59 Dextrose/Sodium Chloride (D5ns) 1,000 ml @ 75 mls/hr [id number] ONCE IV 10/03/16 11:30 10/04/16 00:49 10/03/16 11:40 Docusate Sodium (Colace) 250 mg BID GT 10/02/16 22:30 11/01/16 22:29 10/02/16 22:17 Donepezil HCl 10 mg 10 mg QHS GT 10/04/16 21:00 11/03/16 20:59 Ferrous Sulfate (Feosol) 300 mg DAILY GT 10/03/16 09:00 11/02/16 08:59 10/03/16 09:31 Finasteride (Proscar) 5 mg DAILY GT 10/03/16 09:00 11/02/16 08:59 10/03/16 09:31 Heparin Sodium (Porcine) (Heparin 5000 units/ml) 5,000 units EVERY 12 HOURS SUBQ 10/02/16 21:00 11/01/16 20:59 Hydralazine HCl (Apresoline) 25 mg Q8HR GT 10/03/16 22:00 11/02/16 21:59 Levetiracetam (Keppra) 500 mg Q12HR GT 10/02/16 21:00 11/01/16 20:59 10/03/16 09:31 Levothyroxine Sodium (Synthroid) 25 mcg ACBREAKFAST GT 10/03/16 06:30 11/02/16 06:29 10/03/16 06:31 Lorazepam (Ativan) 0.5 mg DAILYPRN PRN GT ANXIETY 10/02/16 22:03 10/09/16 17:59 Memantine (Namenda) 10 mg DAILY GT 10/03/16 09:00 11/02/16 08:59 10/03/16 09:32 Multivitamins (Multivitamins W/ Minerals 15ml Liquid) 15 ml DAILY GT 10/03/16 09:00 11/02/16 08:59 10/03/16 09:31 Ondansetron HCl 4 mg 4 mg Q6H PRN IVP Nausea & Vomiting 10/02/16 16:00 11/01/16 15:59 Sertraline HCl (Zoloft) 50 mg DAILY GT 10/03/16 09:00 11/02/16 08:59 10/03/16 09:32 Tamsulosin HCl (Flomax) 0.4 mg Q12HR GT 10/03/16 21:00 11/02/16 20:59 Zinc Sulfate (Zinc Sulfate) 220 mg DAILY GT 10/03/16 09:00 11/02/16 08:59 10/03/16 09:31 Robles Mari M.D. Oct 03, 2016 15:34
--- NOTE | 2016-10-03 16:05 | Wound Care Consultation ---
Wound Assessment Wound Assessment #1: Wound Number: #1 Wound Present on Admission: Yes New Wound: No Status Change of Wound: No Wound Location Body Site Modif: mid Wound Location Body Site: sacral Wound Type: pressure ulcer Libia Test: Does not Libia Pressure Ulcer Stage: I Wound Length: 5.0 Wound Width: 5.0 Percent of Wound Hyder/Red: 100 Wound Drainage Amount: None Wound Drainage Odor: None/Absent Tissue Surrounding Wound: Erythemic Wound General Appearance: Reddened Wound Assessment #2: Wound Number: #2 Wound Present on Admission: Yes New Wound: No Status Change of Wound: No Wound Location Body Site Modif: left Wound Location Body Site: sacral - aspect of sacral Wound Type: pressure ulcer Libia Test: Does not Libia Pressure Ulcer Stage: IV/unstageable - unstageable. noted denuded yellow skin unable to see wound bed at this point. Wound Thickness: Full Thickness Wound Length: 5.0 Wound Width: 2.0 Wound Depth: utd Percent of Wound Hyder/Red: 50 Percent of Wound Bed Yellow/Wh: 50 - note yellow denuded and mascerated skin Wound Drainage Description: Serosanguineous Wound Drainage Amount: Scant Wound Drainage Odor: None/Absent Tissue Surrounding Wound: Macerated Wound General Appearance: Reddened Wound Comment #1 Mid sacral pressure ulcer stage I. #2 Left aspect of sacral unstageable pressure ulcer. Recommendation. -Local wound care as ordered. -Turn and reposition. -Apply low air loss SPR mattress. -Keep clean and dry. -Avoid shear and friction. -Optimize nutrition. -Heel protectors. -Offload heels and feet. -Assess and notify MD for any further changes of condition to skin noted. IZABELA EASON Oct 03, 2016 16:05
[2016-10-03 16:20] VITALS: BP 118/77
[2016-10-03] MEDS ORDERED: Warfarin Sodium 3mg ORAL SCH (16:30)
[2016-10-03] MEDS ORDERED: Sterile Water Irrig 1000ml IRRIG ONE (16:37)
[2016-10-03] MEDS ORDERED: Tubing IV Secondary IV ONE (16:37)
[2016-10-03] MEDS: Cefepime 1gm/D5W 55ml IVPB SCH ×2 (17:31)
[2016-10-03 20:00] VITALS: BP 113/76
--- NOTE | 2016-10-03 21:00 | History and Physical Report ---
DATE OF ADMISSION: 10/02/2016 HISTORY OF PRESENT ILLNESS: The patient is a poor historian. 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 Again, cannot obtain any history from the patient. The patient is currently in the assisted at this time with increased cough and had a fever of 101 degrees and is being admitted for pneumonia as well as atrial fibrillation with rapid ventricular response, was on oxygen. shows Do Not Resuscitate. The patient is admitted for IV antibiotics and breathing treatments. Chest x-ray shows also bilateral infiltrates. Cannot obtain any more history from the patient. PAST MEDICAL HISTORY: History of vascular dementia, advanced, history of electrolyte imbalance, history of arrhythmia, history of diverticulosis, history of gastritis, history of hypothyroidism, malnutrition, history of encephalopathy, and history of elevated CA, history of arrhythmia/atrial fibrillation, history of constipation, history of hypertension, anxiety and psychosis, history of seizure disorder, history of BPH and constipation, history of dysphagia, and history of kidney stones. Iron deficiency anemia, history of DVT, and history of GI bleed. The patient has been on Coumadin in the past. CVA with right hemiparesis and chronic renal failure. PAST SURGICAL HISTORY: Status post ureteral stent that was removed and status post PEG. MEDICATIONS: Amlodipine, Colace, ferrous sulfate, finasteride, hydralazine, Keppra, Levoxyl, lorazepam, and Flomax. ALLERGIES: No known allergies. SOCIAL HISTORY: Unable to obtain. Comes from the assisted. FAMILY HISTORY: Unable to obtain. REVIEW OF SYSTEMS: Unable to obtain. Very poor historian. PHYSICAL EXAMINATION: VITAL SIGNS: Temperature 97.9 degrees, pulse is 70, and blood pressure 105/57. HEENT: PERRLA. NECK: Supple. No lymphadenopathy. CHEST: Bibasilar rales. CARDIOVASCULAR: Irregularly irregular rhythm. There is a murmur, which is chronic. GASTROINTESTINAL: Soft and nontender. Positive bowel sounds. No organomegaly. EXTREMITIES: No edema. NEUROLOGIC: Reflexes are equal on both sides. He does have weakness on the right side, which is chronic due to his stroke in the past. Does not follow neurologic exam, mostly nonverbal. SKIN/INTEGUMENT: Please refer to the nursing notes. The patient does have right hemiparesis. LABORATORY AND DIAGNOSTIC DATA: WBC of 6.4, hemoglobin 7.9, and platelet of 119,000. Sodium 138, potassium 4.2, BUN of 68, creatinine of 3.3, and glucose of 111. Chest x-ray shows pneumonia. ASSESSMENT AND PLAN: 1. Pneumonia. 2. Renal failure. The patient does have chronic renal failure as well. 3. The patient elevated beta-natriuretic peptid. 4. The patient is admitted for pneumonia as well as anemia as well as atrial fibrillation with rapid ventricular response. 5. Oxygen and fever, rule out sepsis. The patient is going to be seen by Dr. Monae, Dr. Rodriguez, Dr. Morgan, Dr. Moraes, and Dr. Crowe for the above-mentioned diagnoses and treatment. Seth Lee M.D. DR: JAZMÍN JOB#: [id number] CC:
[2016-10-03] MEDS: Tamsulosin 0.4mg cap GT SCH (21:35)
[2016-10-03] MEDS: HydrALAZINE 25mg tab GT SCH (21:36)
--- NOTE | 2016-10-03 23:30 | Consultation ---
DATE OF CONSULTATION: 10/03/2016 CARDIOLOGY CONSULTATION CONSULTING PHYSICIAN: Mustapha Crowe M.D. REFERRING PHYSICIAN: Seth Lee M.D. REASON FOR CONSULTATION: Atrial fibrillation and congestive heart failure. HISTORY OF PRESENT ILLNESS: The patient is an 85-year-old gentleman with history of hypertension and paroxysmal atrial fibrillation, who was brought to the emergency room for fever and productive cough. The patient's temperature was 101 degrees and chest x-ray showed infiltrate. The patient also is G-tube dependent and most of the information was obtained by reviewing the patient's records. PAST MEDICAL HISTORY: 1. Hypertension. 2. Psychosis. 3. History of CVA. 4. Alzheimer's, Parkinson's. 5. Dysphagia, status post PEG placement. MEDICATIONS: Per reconciliation. SOCIAL HISTORY: He lives in a alf. Does not smoke or drink alcohol. FAMILY HISTORY: Noncontributory. REVIEW OF SYSTEMS: Cannot be obtained due to altered mental status. PHYSICAL EXAMINATION: VITAL SIGNS: Blood pressure is 115/56, pulse 75, respirations 20, and temperature 98 degrees. HEAD AND NECK: No JVD. LUNGS: Coarse rhonchi. CARDIOVASCULAR: Regular S1 and S2 with no gallop. ABDOMEN: Status post G-tube. EXTREMITIES: There is 1+ pitting edema. LABORATORY AND DIAGNOSTIC DATA: White count 6.4, hemoglobin 10.9 , hematocrit 25, and platelet count 119,000. Sodium 130, potassium 4.2, BUN of 68, creatinine 2.3, and glucose of 111. . BNP is 4773. INR is 1.1. Urinalysis showed 5-10 WBCs and 3+ protein. His telemetry strip showed episodes of atrial fibrillation with rapid ventricular response that converted to sinus rhythm and currently in sinus rhythm with frequent PVCs. ASSESSMENT AND PLAN: 1. Paroxysmal atrial fibrillation. The rhythm, however, predominantly in sinus rhythm with premature atrial complexes. The patient, however, does have history of atrial fibrillation on previous records of [facility] just about a month ago. 2. Hypertension, on Norvasc 5 mg daily and hydralazine 25 mg every eight hours. The patient was on losartan that was discontinued in view of his renal failure. 3. Renal failure. 4. Dysphagia, status post percutaneous endoscopic gastrostomy placement. 5. Dementia. 6. Severe anemia. Anemia could be due to his renal failure. Thank you very much, Dr. Lee, for allowing me to participate in the care of this patient. Please do not hesitate to contact me for any questions regarding my evaluation. Mustapha Crowe M.D. DR: POLINA JOB#: [id number] CC:
[2016-10-04] VITALS (7 sets, daily range): BP systolic 115–134; BP diastolic 53–65
[2016-10-04] MEDS: Clindamycin 600mg 50 ML IV SCH ×3 (05:47→22:13)
[2016-10-04] MEDS: Levothyroxine 25mcg tab GT SCH (05:47)
[2016-10-04] MEDS: HydrALAZINE 25mg tab GT SCH ×3 (05:50→22:15)
[2016-10-04 08:19] LABS: MEAN CORPUSCULAR HEMOGLOBIN 31.6 PG (27.0-31.0); MEAN CORPUSCULAR HGB CONC 32.2 G/DL (32.0-36.0); MEAN CORPUSCULAR VOLUME 98 FL (80-99); MEAN PLATELET VOLUME 7.8 FL (6.5-10.1); PLATELET COUNT 102 K/UL (150-450); RED BLOOD COUNT 2.39 M/UL (4.70-6.10); RED CELL DISTRIBUTION WIDTH 14.8 % (11.6-14.8)
[2016-10-04 08:35] LABS: ALANINE AMINOTRANSFERASE 17 U/L (3-41); ALBUMIN/GLOBULIN RATIO 0.8 (1.0-2.7); ANION GAP 11 (5-15); ASPARTATE AMINO TRANSFERASE 25 U/L (5-40); CALCIUM 8.7 mg/dL (8.6-10.2); CARBON DIOXIDE 25 mEQ/L (20-30); CHLORIDE 108 mEQ/L (98-107); CHOLESTEROL 92 mg/dL (< 200); CHOLESTEROL/HDL RATIO 3.5 (3.3-4.4); CREATININE 2.2 mg/dL (0.7-1.2); CRP QUANT 14.7 mg/dL (< 0.5); HEMOLYSIS 4; LDL CHOLESTEROL (CALC.) 54 mg/dL (60-99); PHOSPHORUS 4.1 mg/dL (2.5-4.8); POTASSIUM 4.2 mEQ/L (3.4-4.9); SODIUM 144 mEQ/L (135-145); TOTAL PROTEIN 6.1 g/dL (6.6-8.7)
[2016-10-04 08:37] LABS: TROPONIN I < 0.30 ng/mL (<=0.30)
[2016-10-04 08:41] LABS: HEMOGLOBIN A1C 4.9 % (< 6.0)
[2016-10-04] MEDS: Tamsulosin 0.4mg cap GT SCH ×2 (09:00→20:50)
[2016-10-04] MEDS: Multivitamins W/Minerals 15 ML UDC GT SCH (09:00)
[2016-10-04] MEDS: Sertraline 50mg tab GT SCH (09:00)
[2016-10-04] MEDS: levETIRAcetam 500mg/5ml Liquid GT SCH ×2 (09:00→20:49)
[2016-10-04] MEDS: Heparin 5000 units/ml inj SUBQ SCH ×2 (09:00→21:00)
[2016-10-04] MEDS: Ascorbic Acid 500mg tab GT SCH (09:00)
[2016-10-04] MEDS: Ferrous Sulfate 300 MG/5 ML UDC GT SCH (09:00)
[2016-10-04] MEDS: Zinc Sulfate 220mg cap GT SCH (09:00)
[2016-10-04] MEDS: Allopurinol 100mg Tab GT SCH (09:00)
[2016-10-04] MEDS: Memantine 10mg tab GT SCH (09:00)
--- NOTE | 2016-10-04 09:04 | Diagnostic Imaging Report ---
Indication: Dyspnea Comparison: 06/27/16 A single view chest radiograph was obtained. Findings: Patchy infiltrates versus interstitial edema demonstrated. The heart is enlarged and there is prominence of pulmonary vascularity. Impression: Suspected patchy interstitial edema. Please correlate clinically
--- NOTE | 2016-10-04 09:05 | General Progress Note ---
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 # Distal common bile duct stone with moderate biliary ductal dilatation s/p sphincterotomy and stone removal and stent placement # Hypertension # Hypothyroidism # Sz disorder Plan: Hydrate- Adjust BP meds- Anemia damon- Antibiotics and pulmonary support favor transfusion One dose IV Iron Subjective ROS Limited/Unobtainable: No Constitutional: Reports: malaise Allergies: Coded Allergies: No Known Allergies (Unverified , 04/13/15) Objective Last 24 Hour Vital Signs Date Time Temp Pulse Resp B/P Pulse Ox O2 Delivery O2 Flow Rate FiO2 10/04/16 07:46 97.2 60 20 115/59 97 Nasal Cannula 3.0 10/04/16 07:37 61 10/04/16 05:50 128/64 10/04/16 04:00 97.7 64 20 126/63 95 Nasal Cannula 3.0 10/04/16 03:48 57 10/04/16 00:02 77 10/04/16 00:00 97.5 67 24 134/65 97 Nasal Cannula 3.0 10/03/16 21:36 113/76 10/03/16 20:00 97.8 84 20 113/76 95 Nasal Cannula 4.0 10/03/16 19:34 70 10/03/16 19:30 97 Nasal Cannula 3.0 32 10/03/16 19:30 80 20 Nasal Cannula 3.0 32 10/03/16 19:30 Nasal Cannula 3.0 32 10/03/16 16:20 97.9 66 20 118/77 94 Nasal Cannula 4.0 10/03/16 16:17 80 10/03/16 12:58 80 10/03/16 11:49 97.9 75 20 115/56 94 Nasal Cannula 4.0 10/03/16 10:49 79 20 Nasal Cannula 3.0 32 10/03/16 10:49 94 Nasal Cannula 4.0 36 10/03/16 10:49 Nasal Cannula 4.0 36 Intake and Output 10/03/16 10/04/16 19:00 07:00 Intake Total 1710 ml 1620 ml Output Total 600 ml 1300 ml Balance 1110 ml 320 ml Free Water 100 ml 700 ml IV Total 630 ml 150 ml Tube Feeding 140 ml 770 ml Other 840 ml Output Urine Total 600 ml 1300 ml Laboratory Tests 10/03/16 12:10: Uric Acid 7.4, Iron Level 19L, Total Iron Binding Capacity 172L, Percent Iron Saturation 11L, Unsaturated Iron Binding 153, Vitamin B12 Level 456, Folate [ Pending] 10/04/16 07:45: White Blood Count 3.0L, Red Blood Count 2.39L, Hemoglobin 7.5L, Hematocrit 23.4L , Mean Corpuscular Volume 98, Mean Corpuscular Hemoglobin 31.6H, Mean Corpuscular Hemoglobin Concent 32.2, Red Cell Distribution Width 14.8, Platelet Count 102L, Mean Platelet Volume 7.8, Neutrophils (%) (Auto) , Lymphocytes (%) ( Auto) , Monocytes (%) (Auto) , Eosinophils (%) (Auto) , Basophils (%) (Auto) , Neutrophils % (Manual) [Pending], Lymphocytes % (Manual) [Pending], Platelet Estimate [Pending], Platelet Morphology [Pending], Sodium Level 144, Potassium Level 4.2, Chloride Level 108H, Carbon Dioxide Level 25, Anion Gap 11, Blood Urea Nitrogen 64H, Creatinine 2.2H, Estimat Glomerular Filtration Rate , Glucose Level 117H, Hemoglobin A1c 4.9, Calcium Level 8.7, Phosphorus Level 4.1 , Magnesium Level 2.0, Total Bilirubin 0.3, Gamma Glutamyl Transpeptidase 11, Aspartate Amino Transf (AST/SGOT) 25, Alanine Aminotransferase (ALT/SGPT) 17, Alkaline Phosphatase 58, Total Creatine Kinase 110, Troponin I < 0.30, C- Reactive Protein, Quantitative 14.7H, Pro-B-Type Natriuretic Peptide 4569H, Total Protein 6.1L, Albumin 2.8L, Globulin 3.3, Albumin/Globulin Ratio 0.8L, Triglycerides Level 60, Cholesterol Level 92, LDL Cholesterol 54L, HDL Cholesterol 26, Cholesterol/HDL Ratio 3.5, Thyroid Stimulating Hormone (TSH) 1.400, Free Thyroxine 1.26 Height (Feet): 5 Height (Inches): 11.00 Weight (Pounds): 175 General Appearance: no apparent distress Cardiovascular: normal rate Respiratory/Chest: decreased breath sounds Abdomen: soft TAWANNA ONEIL Oct 04, 2016 09:05
--- NOTE | 2016-10-04 09:20 | General Progress Note ---
Assessment/Plan Assessment/Plan # Anemia secondary to chronic disease GI service is on the case --> hgb goal >7, transfuse as needed --> work up shows e/o chronic disease # Anemia secondary to kidney disease - epogen as needed # RLE DVT hx however has recurrent GI bleed therefore no coumadin or lovenox --> have attempted several times at anticoagulating and has bleed each time # MARCO A on CKD, baseline Cr is 1.5 # Hx of leukocytosis secondary to infection/stress-> from before resolved # Hx thrombocytopenia secondary to infection likely-> from before resolved # Distal common bile duct stone with moderate biliary ductal dilatation s/p sphincterotomy and stone removal and stent placement # Hypertension # Hypothyroidism # Altered mental status # Dehydration. # s/p TURP # Bilateral hydroureter/hydronephrosis Subjective Date patient seen: Oct 03, 2016 Constitutional: Reports: no symptoms HEENT: Reports: no symptoms Cardiovascular: Reports: no symptoms Respiratory: Reports: no symptoms Gastrointestinal/Abdominal: Reports: no symptoms Genitourinary: Reports: no symptoms Neurologic/Psychiatric: Reports: no symptoms Endocrine: Reports: no symptoms Hematologic/Lymphatic: Reports: no symptoms Allergies: Coded Allergies: No Known Allergies (Unverified , 04/13/15) Subjective lying in bed, non verbal Objective Last 24 Hour Vital Signs Date Time Temp Pulse Resp B/P Pulse Ox O2 Delivery O2 Flow Rate FiO2 10/04/16 07:46 97.2 60 20 115/59 97 Nasal Cannula 3.0 10/04/16 07:37 61 10/04/16 05:50 128/64 10/04/16 04:00 97.7 64 20 126/63 95 Nasal Cannula 3.0 10/04/16 03:48 57 10/04/16 00:02 77 10/04/16 00:00 97.5 67 24 134/65 97 Nasal Cannula 3.0 10/03/16 21:36 113/76 10/03/16 20:00 97.8 84 20 113/76 95 Nasal Cannula 4.0 10/03/16 19:34 70 10/03/16 19:30 97 Nasal Cannula 3.0 32 10/03/16 19:30 80 20 Nasal Cannula 3.0 32 10/03/16 19:30 Nasal Cannula 3.0 32 10/03/16 16:20 97.9 66 20 118/77 94 Nasal Cannula 4.0 10/03/16 16:17 80 10/03/16 12:58 80 10/03/16 11:49 97.9 75 20 115/56 94 Nasal Cannula 4.0 10/03/16 10:49 79 20 Nasal Cannula 3.0 32 10/03/16 10:49 94 Nasal Cannula 4.0 36 10/03/16 10:49 Nasal Cannula 4.0 36 Intake and Output 10/03/16 10/04/16 19:00 07:00 Intake Total 1710 ml 1620 ml Output Total 600 ml 1300 ml Balance 1110 ml 320 ml Free Water 100 ml 700 ml IV Total 630 ml 150 ml Tube Feeding 140 ml 770 ml Other 840 ml Output Urine Total 600 ml 1300 ml Laboratory Tests 10/03/16 12:10: Uric Acid 7.4, Iron Level 19L, Total Iron Binding Capacity 172L, Percent Iron Saturation 11L, Unsaturated Iron Binding 153, Vitamin B12 Level 456, Folate [ Pending] 10/04/16 07:45: White Blood Count 3.0L, Red Blood Count 2.39L, Hemoglobin 7.5L, Hematocrit 23.4L , Mean Corpuscular Volume 98, Mean Corpuscular Hemoglobin 31.6H, Mean Corpuscular Hemoglobin Concent 32.2, Red Cell Distribution Width 14.8, Platelet Count 102L, Mean Platelet Volume 7.8, Neutrophils (%) (Auto) , Lymphocytes (%) ( Auto) , Monocytes (%) (Auto) , Eosinophils (%) (Auto) , Basophils (%) (Auto) , Neutrophils % (Manual) [Pending], Lymphocytes % (Manual) [Pending], Platelet Estimate [Pending], Platelet Morphology [Pending], Sodium Level 144, Potassium Level 4.2, Chloride Level 108H, Carbon Dioxide Level 25, Anion Gap 11, Blood Urea Nitrogen 64H, Creatinine 2.2H, Estimat Glomerular Filtration Rate , Glucose Level 117H, Hemoglobin A1c 4.9, Calcium Level 8.7, Phosphorus Level 4.1 , Magnesium Level 2.0, Total Bilirubin 0.3, Gamma Glutamyl Transpeptidase 11, Aspartate Amino Transf (AST/SGOT) 25, Alanine Aminotransferase (ALT/SGPT) 17, Alkaline Phosphatase 58, Total Creatine Kinase 110, Troponin I < 0.30, C- Reactive Protein, Quantitative 14.7H, Pro-B-Type Natriuretic Peptide 4569H, Total Protein 6.1L, Albumin 2.8L, Globulin 3.3, Albumin/Globulin Ratio 0.8L, Triglycerides Level 60, Cholesterol Level 92, LDL Cholesterol 54L, HDL Cholesterol 26, Cholesterol/HDL Ratio 3.5, Thyroid Stimulating Hormone (TSH) 1.400, Free Thyroxine 1.26 Height (Feet): 5 Height (Inches): 11.00 Weight (Pounds): 175 General Appearance: no apparent distress EENT: normal ENT inspection Neck: normal alignment Cardiovascular: normal peripheral pulses Edema: no edema noted Pedal (L), no edema noted Pedal (R) 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
[2016-10-04] MEDS: D5 1/2NS 1,000 ML IV SCH ×2 (09:30→22:55)
[2016-10-04] MEDS: Docusate 100mg/10ml Liq GT SCH ×2 (10:17→18:00)
[2016-10-04 11:06] LABS: ANISOCYTOSIS 1+; BAND NEUTROPHILS % (MANUAL) 0 % (0-8); BASOPHILS % (MANUAL) 0 % (0-2); EOSINOPHILS % (MANUAL) 7 % (0-3); HYPOCHROMASIA 3+; LYMPHOCYTES % (MANUAL) 14 % (20-45); NEUTROPHILS % (MANUAL) 71 % (45-75); PLATELET ESTIMATE DECREASED; PLATELET MORPHOLOGY NORMAL; SPHEROCYTES 2+; TOTAL CELLS COUNTED 100
--- NOTE | 2016-10-04 12:08 | Diagnostic Imaging Report ---
Indication: Shortness of breath Technique: One view of the chest Comparison: 10/02/2016 Findings: Mild bilateral interstitial and alveolar congestion persists, essentially unchanged. Pleural spaces remain clear. Heart remains borderline enlarged. The aorta is tortuous and calcified. Impression: Unchanged, over 2 days, findings as above.
--- NOTE | 2016-10-04 15:12 | Cardiology Report ---
APPROVED REPORT EXAM: Two-dimensional and M-mode echocardiogram with Doppler and color Doppler. INDICATION Congestive Heart Failure Technically difficult study due to poor acoustic windows M-mode measurements not obtainable due to cardiac structure. Study quality precludes accurate assessment of regional wall motion. Normal left ventricular chamber size, systolic function and wall motion. Left ventricular ejection fraction estimated to be 55-60%. No evidence of left ventricular hypertrophy. No evidence of pericardial fat or effusion. Right cardiac chamber sizes are within normal limits. Mild left atrial enlargement by 2D. Focal aortic valve sclerosis with adequate cusp excursion Thickened mitral valve leaflets with normal excursion. Mitral annulus and aortic root calcification. Pulmonic valve not well visualized. Normal tricuspid valve structure. IVC not obtainable. A color flow and spectral Doppler study was performed and revealed: No aortic regurgitation. No mitral regurgitation. Mitral inflow non diagnostic Trace tricuspid regurgitation. Tricuspid systolic velocities suggests peak right ventricular systolic pressure of 27mmHg
[2016-10-04] MEDS ORDERED: Tubing IV Secondary IV ONE (15:19)
[2016-10-04] MEDS: DuoNeb 0.5-3(2.5)mg/3ml neb HHN PRN (16:04)
--- NOTE | 2016-10-04 16:18 | Infectious Diseases Prog Note ---
Assessment/Plan Problems: (1) HCAP (healthcare-associated pneumonia) Assessment & Plan: on cefepime and clindamycin empirically, sputum culture showed normal respiratory hany (2) Fever Assessment & Plan: improved , due to the above, continue wide spectrum antibiotics, and tylenol (3) Sepsis Assessment & Plan: due to the above, await blood culture, continue wide spectrum antibiotics Subjective ROS Limited/Unobtainable: Yes Allergies: Coded Allergies: No Known Allergies (Unverified , 04/13/15) Subjective he had wheezing, but not short of breath , comfortable, nonverbal, doesn't follow commands . Objective Vital Signs Last 24 Hour Vital Signs Date Time Temp Pulse Resp B/P Pulse Ox O2 Delivery O2 Flow Rate FiO2 10/04/16 16:15 65 20 99 Nasal Cannula 3.0 32 10/04/16 16:08 Nasal Cannula 3.0 32 10/04/16 16:08 97 Nasal Cannula 3.0 32 10/04/16 16:06 60 16 Nasal Cannula 3.0 32 10/04/16 16:06 32 10/04/16 16:05 60 16 97 Nasal Cannula 3.0 32 10/04/16 14:00 125/70 10/04/16 12:06 72 10/04/16 12:03 97.3 61 20 131/59 95 Nasal Cannula 3.0 10/04/16 09:00 55 109/58 10/04/16 07:46 97.2 60 20 115/59 97 Nasal Cannula 3.0 10/04/16 07:37 61 10/04/16 05:50 128/64 10/04/16 04:00 97.7 64 20 126/63 95 Nasal Cannula 3.0 10/04/16 03:48 57 10/04/16 00:02 77 10/04/16 00:00 97.5 67 24 134/65 97 Nasal Cannula 3.0 10/03/16 21:36 113/76 10/03/16 20:00 97.8 84 20 113/76 95 Nasal Cannula 4.0 10/03/16 19:34 70 10/03/16 19:30 97 Nasal Cannula 3.0 32 10/03/16 19:30 80 20 Nasal Cannula 3.0 32 10/03/16 19:30 Nasal Cannula 3.0 32 10/03/16 16:20 97.9 66 20 118/77 94 Nasal Cannula 4.0 10/03/16 16:17 80 Height (Feet): 5 Height (Inches): 11.00 Weight (Pounds): 175 General Appearance: WD/WN, no acute distress HEENT: normocephalic, atraumatic, anicteric, mucous membranes moist Respiratory/Chest: normal breath sounds, no respiratory distress, no accessory muscle use, decreased breath sounds, expiratory wheezing Cardiovascular: normal peripheral pulses, normal rate, regular rhythm, no gallop/murmur, no JVD Abdomen: normal bowel sounds, soft, non tender, no organomegaly, non distended , no mass, no scars Extremities: no cyanosis, no clubbing Skin: no rash, no lesions Neurologic/Psychiatric: alert Lymphatic: no neck adenopathy, no groin adenopathy Microbiology Date/Time Source Procedure Growth Status 10/02/16 12:49 Blood Blood Culture - Preliminary NO GROWTH AFTER 24 HOURS Resulted 10/02/16 12:40 Blood Blood Culture - Preliminary NO GROWTH AFTER 24 HOURS Resulted 10/02/16 21:30 Sputum Expectorated Gram Stain - Final Resulted 10/02/16 21:30 Sputum Expectorated Sputum Culture - Preliminary NO GROWTH AFTER 24 HOURS Resulted 10/02/16 16:19 Nasal Nares MRSA Culture - Final Staphylococcus Aureus - Mrsa Complete 10/02/16 16:19 Rectum VRE Culture - Final Enterococcus Faecium - Vre Complete Laboratory Tests Test 10/04/16 07:45 White Blood Count 3.0 K/UL (4.8-10.8) L Red Blood Count 2.39 M/UL (4.70-6.10) L Hemoglobin 7.5 G/DL (14.2-18.0) L Hematocrit 23.4 % (42.0-52.0) L Mean Corpuscular Volume 98 FL (80-99) Mean Corpuscular Hemoglobin 31.6 PG (27.0-31.0) H Mean Corpuscular Hemoglobin Concent 32.2 G/DL (32.0-36.0) Red Cell Distribution Width 14.8 % (11.6-14.8) Platelet Count 102 K/UL (150-450) L Mean Platelet Volume 7.8 FL (6.5-10.1) Neutrophils (%) (Auto) % (45.0-75.0) Lymphocytes (%) (Auto) % (20.0-45.0) Monocytes (%) (Auto) % (1.0-10.0) Eosinophils (%) (Auto) % (0.0-3.0) Basophils (%) (Auto) % (0.0-2.0) Differential Total Cells Counted 100 Neutrophils % (Manual) 71 % (45-75) Lymphocytes % (Manual) 14 % (20-45) L Monocytes % (Manual) 8 % (1-10) Eosinophils % (Manual) 7 % (0-3) H Basophils % (Manual) 0 % (0-2) Band Neutrophils 0 % (0-8) Platelet Estimate Decreased L Platelet Morphology Normal Hypochromasia 3+ Anisocytosis 1+ Spherocytes 2+ Sodium Level 144 mEQ/L (135-145) Potassium Level 4.2 mEQ/L (3.4-4.9) Chloride Level 108 mEQ/L (98-107) H Carbon Dioxide Level 25 mEQ/L (20-30) Anion Gap 11 (5-15) Blood Urea Nitrogen 64 mg/dL (7-23) H Creatinine 2.2 mg/dL (0.7-1.2) H Estimat Glomerular Filtration Rate mL/min (>60) Glucose Level 117 mg/dL (74-106) H Hemoglobin A1c 4.9 % (< 6.0) Calcium Level 8.7 mg/dL (8.6-10.2) Phosphorus Level 4.1 mg/dL (2.5-4.8) Magnesium Level 2.0 mg/dL (1.7-2.5) Total Bilirubin 0.3 mg/dL (0.0-1.2) Gamma Glutamyl Transpeptidase 11 U/L (8-61) Aspartate Amino Transf (AST/SGOT) 25 U/L (5-40) Alanine Aminotransferase (ALT/SGPT) 17 U/L (3-41) Alkaline Phosphatase 58 U/L (40-129) Total Creatine Kinase 110 U/L (38-174) Troponin I < 0.30 ng/mL (<=0.30) C-Reactive Protein, Quantitative 14.7 mg/dL (< 0.5) H Pro-B-Type Natriuretic Peptide 4569 pg/mL (0-450) H Total Protein 6.1 g/dL (6.6-8.7) L Albumin 2.8 g/dL (3.5-5.2) L Globulin 3.3 g/dL Albumin/Globulin Ratio 0.8 (1.0-2.7) L Triglycerides Level 60 mg/dL (< 150) Cholesterol Level 92 mg/dL (< 200) LDL Cholesterol 54 mg/dL (60-99) L HDL Cholesterol 26 mg/dL (> 60) Cholesterol/HDL Ratio 3.5 (3.3-4.4) Thyroid Stimulating Hormone (TSH) 1.400 uIU/mL (0.300-4.500) Free Thyroxine 1.26 ng/dL (0.86-1.85) Current Medications Medications (Trade) Dose Ordered Sig/Marci Route PRN Reason Start Time Stop Time Status Last Admin Dose Admin Acetaminophen (Tylenol) 325 mg Q4H PRN ORAL Headache/Temp > 101 10/02/16 17:00 11/01/16 16:59 Albuterol/ Ipratropium (DuoNeb 0.5-3(2.5)mg/3ml) 3 ml Q6HRT PRN HHN Shortness of Breath 10/03/16 01:00 10/08/16 00:59 10/04/16 16:04 Allopurinol (Zyloprim) 100 mg DAILY GT 10/03/16 09:00 11/02/16 08:59 10/04/16 09:00 Amlodipine Besylate (Norvasc) 2.5 mg DAILY GT 10/04/16 09:00 11/03/16 08:59 Ascorbic Acid (Vitamin C) 500 mg DAILY GT 10/03/16 09:00 11/02/16 08:59 10/04/16 09:00 Cefepime HCl/ Dextrose (Maxipime/D5W) 55 ml @ 110 mls/hr Q24H IVPB 10/03/16 18:00 10/10/16 17:59 10/03/16 17:31 Clindamycin HCl/ Dextrose 50 ml @ 100 mls/hr Q8HR IV 10/02/16 20:00 10/09/16 19:59 10/04/16 14:00 Clonidine HCl (Catapres) 0.1 mg Q4H PRN ORAL bp over 160 syst 10/03/16 12:00 11/02/16 11:59 Dextrose/Sodium Chloride (D5 0.45% NS) 1,000 ml @ 75 mls/hr [id number] IV 10/04/16 09:30 11/03/16 09:29 10/04/16 09:30 Docusate Sodium (Colace) 250 mg BID GT 10/02/16 22:30 11/01/16 22:29 10/03/16 17:31 Donepezil HCl 10 mg 10 mg QHS GT 10/04/16 21:00 11/03/16 20:59 Epoetin Buddy (Procrit (for non ESRD use)) 10,000 units MON-MON-MON SUBQ 10/05/16 21:00 11/04/16 20:59 Ferrous Sulfate (Feosol) 300 mg DAILY GT 10/03/16 09:00 11/02/16 08:59 10/04/16 09:00 Finasteride (Proscar) 5 mg DAILY GT 10/03/16 09:00 11/02/16 08:59 10/04/16 09:00 Heparin Sodium (Porcine) (Heparin 5000 units/ml) 5,000 units EVERY 12 HOURS SUBQ 10/02/16 21:00 11/01/16 20:59 Hydralazine HCl (Apresoline) 25 mg Q8HR GT 10/03/16 22:00 11/02/16 21:59 10/04/16 14:00 Iron Sucrose 200 mg/Sodium Chloride 120 ml @ 240 mls/hr ONCE ONCE IV 10/04/16 21:00 10/04/16 21:29 Levetiracetam (Keppra) 500 mg Q12HR GT 10/02/16 21:00 11/01/16 20:59 10/04/16 09:00 Levothyroxine Sodium (Synthroid) 25 mcg ACBREAKFAST GT 10/03/16 06:30 11/02/16 06:29 10/04/16 05:47 Lorazepam (Ativan) 0.5 mg DAILYPRN PRN GT ANXIETY 10/02/16 22:03 10/09/16 17:59 Memantine (Namenda) 10 mg DAILY GT 10/03/16 09:00 11/02/16 08:59 10/04/16 09:00 Multivitamins (Multivitamins W/ Minerals 15ml Liquid) 15 ml DAILY GT 10/03/16 09:00 11/02/16 08:59 10/04/16 09:00 Ondansetron HCl 4 mg 4 mg Q6H PRN IVP Nausea & Vomiting 10/02/16 16:00 11/01/16 15:59 Sertraline HCl (Zoloft) 50 mg DAILY GT 10/03/16 09:00 11/02/16 08:59 10/04/16 09:00 Tamsulosin HCl (Flomax) 0.4 mg Q12HR GT 10/03/16 21:00 11/02/16 20:59 10/04/16 09:00 Zinc Sulfate (Zinc Sulfate) 220 mg DAILY GT 10/03/16 09:00 11/02/16 08:59 10/04/16 09:00 Robles Mari M.D. Oct 04, 2016 16:18
--- NOTE | 2016-10-04 17:02 | Cardiac Electrophysiology PN ---
Assessment/Plan Assessment/Plan 1. Paroxysmal atrial fibrillation. Currently in sinus rhythm with premature atrial complexes. The patient, however, does have history of atrial fibrillation on previous records of [facility] just about a month ago. 2. Hypertension, on Norvasc 2.5 mg daily and hydralazine 25 mg every eight hours. 3. Renal failure. 4. Dysphagia, status post percutaneous endoscopic gastrostomy placement. 5. Dementia. 6. Severe anemia. Anemia could be due to his renal failure. JUDE RN at bedside Subjective Subjective No arrhythmias on tele. Objective Last 24 Hour Vital Signs Date Time Temp Pulse Resp B/P Pulse Ox O2 Delivery O2 Flow Rate FiO2 10/04/16 16:21 97.3 61 20 124/53 95 Nasal Cannula 3.0 10/04/16 16:15 65 20 99 Nasal Cannula 3.0 32 10/04/16 16:08 Nasal Cannula 3.0 32 10/04/16 16:08 97 Nasal Cannula 3.0 32 10/04/16 16:06 60 16 Nasal Cannula 3.0 32 10/04/16 16:06 32 10/04/16 16:05 60 16 97 Nasal Cannula 3.0 32 10/04/16 14:00 125/70 10/04/16 12:06 72 10/04/16 12:03 97.3 61 20 131/59 95 Nasal Cannula 3.0 10/04/16 09:00 55 109/58 10/04/16 07:46 97.2 60 20 115/59 97 Nasal Cannula 3.0 10/04/16 07:37 61 10/04/16 05:50 128/64 10/04/16 04:00 97.7 64 20 126/63 95 Nasal Cannula 3.0 10/04/16 03:48 57 10/04/16 00:02 77 10/04/16 00:00 97.5 67 24 134/65 97 Nasal Cannula 3.0 10/03/16 21:36 113/76 10/03/16 20:00 97.8 84 20 113/76 95 Nasal Cannula 4.0 10/03/16 19:34 70 10/03/16 19:30 97 Nasal Cannula 3.0 32 10/03/16 19:30 80 20 Nasal Cannula 3.0 32 10/03/16 19:30 Nasal Cannula 3.0 32 Intake and Output 10/03/16 10/04/16 19:00 07:00 Intake Total 1710 ml 1620 ml Output Total 600 ml 1300 ml Balance 1110 ml 320 ml Free Water 100 ml 700 ml IV Total 630 ml 150 ml Tube Feeding 140 ml 770 ml Other 840 ml Output Urine Total 600 ml 1300 ml Laboratory Tests Test 10/04/16 07:45 White Blood Count 3.0 K/UL (4.8-10.8) L Red Blood Count 2.39 M/UL (4.70-6.10) L Hemoglobin 7.5 G/DL (14.2-18.0) L Hematocrit 23.4 % (42.0-52.0) L Mean Corpuscular Volume 98 FL (80-99) Mean Corpuscular Hemoglobin 31.6 PG (27.0-31.0) H Mean Corpuscular Hemoglobin Concent 32.2 G/DL (32.0-36.0) Red Cell Distribution Width 14.8 % (11.6-14.8) Platelet Count 102 K/UL (150-450) L Mean Platelet Volume 7.8 FL (6.5-10.1) Neutrophils (%) (Auto) % (45.0-75.0) Lymphocytes (%) (Auto) % (20.0-45.0) Monocytes (%) (Auto) % (1.0-10.0) Eosinophils (%) (Auto) % (0.0-3.0) Basophils (%) (Auto) % (0.0-2.0) Differential Total Cells Counted 100 Neutrophils % (Manual) 71 % (45-75) Lymphocytes % (Manual) 14 % (20-45) L Monocytes % (Manual) 8 % (1-10) Eosinophils % (Manual) 7 % (0-3) H Basophils % (Manual) 0 % (0-2) Band Neutrophils 0 % (0-8) Platelet Estimate Decreased L Platelet Morphology Normal Hypochromasia 3+ Anisocytosis 1+ Spherocytes 2+ Sodium Level 144 mEQ/L (135-145) Potassium Level 4.2 mEQ/L (3.4-4.9) Chloride Level 108 mEQ/L (98-107) H Carbon Dioxide Level 25 mEQ/L (20-30) Anion Gap 11 (5-15) Blood Urea Nitrogen 64 mg/dL (7-23) H Creatinine 2.2 mg/dL (0.7-1.2) H Estimat Glomerular Filtration Rate mL/min (>60) Glucose Level 117 mg/dL (74-106) H Hemoglobin A1c 4.9 % (< 6.0) Calcium Level 8.7 mg/dL (8.6-10.2) Phosphorus Level 4.1 mg/dL (2.5-4.8) Magnesium Level 2.0 mg/dL (1.7-2.5) Total Bilirubin 0.3 mg/dL (0.0-1.2) Gamma Glutamyl Transpeptidase 11 U/L (8-61) Aspartate Amino Transf (AST/SGOT) 25 U/L (5-40) Alanine Aminotransferase (ALT/SGPT) 17 U/L (3-41) Alkaline Phosphatase 58 U/L (40-129) Total Creatine Kinase 110 U/L (38-174) Troponin I < 0.30 ng/mL (<=0.30) C-Reactive Protein, Quantitative 14.7 mg/dL (< 0.5) H Pro-B-Type Natriuretic Peptide 4569 pg/mL (0-450) H Total Protein 6.1 g/dL (6.6-8.7) L Albumin 2.8 g/dL (3.5-5.2) L Globulin 3.3 g/dL Albumin/Globulin Ratio 0.8 (1.0-2.7) L Triglycerides Level 60 mg/dL (< 150) Cholesterol Level 92 mg/dL (< 200) LDL Cholesterol 54 mg/dL (60-99) L HDL Cholesterol 26 mg/dL (> 60) Cholesterol/HDL Ratio 3.5 (3.3-4.4) Thyroid Stimulating Hormone (TSH) 1.400 uIU/mL (0.300-4.500) Free Thyroxine 1.26 ng/dL (0.86-1.85) Microbiology Date/Time Source Procedure Growth Status 10/02/16 12:49 Blood Blood Culture - Preliminary NO GROWTH AFTER 24 HOURS Resulted 10/02/16 12:40 Blood Blood Culture - Preliminary NO GROWTH AFTER 24 HOURS Resulted 10/02/16 21:30 Sputum Expectorated Gram Stain - Final Resulted 10/02/16 21:30 Sputum Expectorated Sputum Culture - Preliminary NO GROWTH AFTER 24 HOURS Resulted 10/02/16 16:19 Nasal Nares MRSA Culture - Final Staphylococcus Aureus - Mrsa Complete 10/02/16 16:19 Rectum VRE Culture - Final Enterococcus Faecium - Vre Complete Objective HEAD AND NECK: No JVD. LUNGS: Coarse rhonchi. CARDIOVASCULAR: Regular S1 and S2 with no gallop. ABDOMEN: Status post G-tube. EXTREMITIES: There is 1+ pitting edema. RAKESH ALEXANDER Oct 04, 2016 17:02
[2016-10-04] MEDS: Cefepime 1gm/D5W 55ml IVPB SCH ×2 (18:00)
--- NOTE | 2016-10-04 19:00 | Cardiology Report ---
APPROVED REPORT EKG Measurement Heart [id number] Sinus rhythm with 1st degree AV block with premature supraventricular complexes and with occasional premature ventricular com Low voltage QRS Nonspecific ST abnormality Abnormal ECG
--- NOTE | 2016-10-04 20:23 | General Progress Note ---
Assessment/Plan Problem List: (1) Gastritis ICD Codes: K29.70 - Gastritis, unspecified, without bleeding SNOMED: 5335990 (2) Hypothyroidism ICD Codes: E03.9 - Hypothyroidism, unspecified SNOMED: 76018504 (3) Hypoalbuminemia ICD Codes: E88.09 - Other disorders of plasma-protein metabolism, not elsewhere classified SNOMED: 843682069 (4) Acute renal failure ICD Codes: N17.9 - Acute kidney failure, unspecified SNOMED: 94023099 (5) Sepsis ICD Codes: A41.9 - Sepsis, unspecified organism SNOMED: 58059930 (6) Respiratory insufficiency ICD Codes: R06.89 - Other abnormalities of breathing SNOMED: 441118027 (7) Anemia ICD Codes: D64.9 - Anemia, unspecified SNOMED: 995151678 (8) Atrial fibrillation ICD Codes: I48.91 - Unspecified atrial fibrillation SNOMED: 84710190 Status: progressing Assessment/Plan clinically improving afebrile vitals stable no acute events no bleeding Subjective ROS Limited/Unobtainable: Yes Allergies: Coded Allergies: No Known Allergies (Unverified , 04/13/15) Objective Last 24 Hour Vital Signs Date Time Temp Pulse Resp B/P Pulse Ox O2 Delivery O2 Flow Rate FiO2 10/04/16 20:00 97.7 87 18 126/60 95 Nasal Cannula 3.0 32 10/04/16 16:21 97.3 61 20 124/53 95 Nasal Cannula 3.0 10/04/16 16:15 65 20 99 Nasal Cannula 3.0 32 10/04/16 16:08 Nasal Cannula 3.0 32 10/04/16 16:08 97 Nasal Cannula 3.0 32 10/04/16 16:06 60 16 Nasal Cannula 3.0 32 10/04/16 16:06 32 10/04/16 16:05 60 16 97 Nasal Cannula 3.0 32 10/04/16 16:00 68 10/04/16 14:00 125/70 10/04/16 12:06 72 10/04/16 12:03 97.3 61 20 131/59 95 Nasal Cannula 3.0 10/04/16 09:00 55 109/58 10/04/16 07:46 97.2 60 20 115/59 97 Nasal Cannula 3.0 10/04/16 07:37 61 10/04/16 05:50 128/64 10/04/16 04:00 97.7 64 20 126/63 95 Nasal Cannula 3.0 10/04/16 03:48 57 10/04/16 00:02 77 10/04/16 00:00 97.5 67 24 134/65 97 Nasal Cannula 3.0 10/03/16 21:36 113/76 Intake and Output 10/03/16 10/04/16 19:00 07:00 Intake Total 1710 ml 1620 ml Output Total 600 ml 1300 ml Balance 1110 ml 320 ml Free Water 100 ml 700 ml IV Total 630 ml 150 ml Tube Feeding 140 ml 770 ml Other 840 ml Output Urine Total 600 ml 1300 ml Laboratory Tests 10/04/16 07:45: White Blood Count 3.0L, Red Blood Count 2.39L, Hemoglobin 7.5L, Hematocrit 23.4L , Mean Corpuscular Volume 98, Mean Corpuscular Hemoglobin 31.6H, Mean Corpuscular Hemoglobin Concent 32.2, Red Cell Distribution Width 14.8, Platelet Count 102L, Mean Platelet Volume 7.8, Neutrophils (%) (Auto) , Lymphocytes (%) ( Auto) , Monocytes (%) (Auto) , Eosinophils (%) (Auto) , Basophils (%) (Auto) , Differential Total Cells Counted 100, Neutrophils % (Manual) 71, Lymphocytes % ( Manual) 14L, Monocytes % (Manual) 8, Eosinophils % (Manual) 7H, Basophils % ( Manual) 0, Band Neutrophils 0, Platelet Estimate DecreasedL, Platelet Morphology Normal, Hypochromasia 3+, Anisocytosis 1+, Spherocytes 2+, Sodium Level 144, Potassium Level 4.2, Chloride Level 108H, Carbon Dioxide Level 25, Anion Gap 11, Blood Urea Nitrogen 64H, Creatinine 2.2H, Estimat Glomerular Filtration Rate , Glucose Level 117H, Hemoglobin A1c 4.9, Calcium Level 8.7, Phosphorus Level 4.1, Magnesium Level 2.0, Total Bilirubin 0.3, Gamma Glutamyl Transpeptidase 11, Aspartate Amino Transf (AST/SGOT) 25, Alanine Aminotransferase (ALT/SGPT) 17, Alkaline Phosphatase 58, Total Creatine Kinase 110, Troponin I < 0.30, C-Reactive Protein, Quantitative 14.7H, Pro-B-Type Natriuretic Peptide 4569H, Total Protein 6.1L, Albumin 2.8L, Globulin 3.3, Albumin/Globulin Ratio 0.8L, Triglycerides Level 60, Cholesterol Level 92, LDL Cholesterol 54L, HDL Cholesterol 26, Cholesterol/HDL Ratio 3.5, Thyroid Stimulating Hormone (TSH) 1.400, Free Thyroxine 1.26 Height (Feet): 5 Height (Inches): 11.00 Weight (Pounds): 175 General Appearance: lethargic, confused Cardiovascular: normal peripheral pulses Seth Lee MD Oct 04, 2016 20:23
[2016-10-04] MEDS ORDERED: Iron Sucrose 200 MG in NS 110 ML IV ONE (21:00)
[2016-10-04] MEDS ORDERED: Donepezil 10mg tab GT SCH (21:00)
[2016-10-05] VITALS: BP 106/59
[2016-10-05 04:00] VITALS: BP 136/51
[2016-10-05] MEDS: Clindamycin 600mg 50 ML IV SCH ×2 (05:43→13:20)
[2016-10-05] MEDS: Levothyroxine 25mcg tab GT SCH (06:02)
[2016-10-05] MEDS: HydrALAZINE 25mg tab GT SCH ×3 (06:02→21:34)
[2016-10-05 07:02] LABS: MEAN CORPUSCULAR HEMOGLOBIN 32.1 PG (27.0-31.0); MEAN CORPUSCULAR HGB CONC 32.4 G/DL (32.0-36.0); MEAN CORPUSCULAR VOLUME 99 FL (80-99); MEAN PLATELET VOLUME 8.4 FL (6.5-10.1); PLATELET COUNT 114 K/UL (150-450); RED BLOOD COUNT 2.37 M/UL (4.70-6.10); RED CELL DISTRIBUTION WIDTH 14.5 % (11.6-14.8); WHITE BLOOD COUNT 2.7 K/UL (4.8-10.8)
[2016-10-05 07:25] LABS: ALANINE AMINOTRANSFERASE 18 U/L (3-41); ALBUMIN/GLOBULIN RATIO 0.9 (1.0-2.7); ANION GAP 13 (5-15); ASPARTATE AMINO TRANSFERASE 23 U/L (5-40); CALCIUM 8.6 mg/dL (8.6-10.2); CARBON DIOXIDE 24 mEQ/L (20-30); CHLORIDE 109 mEQ/L (98-107); CREATININE 1.9 mg/dL (0.7-1.2); CRP QUANT 10.2 mg/dL (< 0.5); HEMOLYSIS 3; MAGNESIUM 2.1 mg/dL (1.7-2.5); PHOSPHORUS 4.9 mg/dL (2.5-4.8); SODIUM 146 mEQ/L (135-145); TOTAL PROTEIN 6.2 g/dL (6.6-8.7)
[2016-10-05 08:13] VITALS: BP 139/69
[2016-10-05 08:17] LABS: ANISOCYTOSIS 1+; BAND NEUTROPHILS % (MANUAL) 0 % (0-8); BASOPHILS % (MANUAL) 0 % (0-2); EOSINOPHILS % (MANUAL) 10 % (0-3); HYPOCHROMASIA 3+; LYMPHOCYTES % (MANUAL) 18 % (20-45); NEUTROPHILS % (MANUAL) 56 % (45-75); PLATELET ESTIMATE DECREASED; PLATELET MORPHOLOGY NORMAL; TOTAL CELLS COUNTED 100
[2016-10-05] MEDS: Docusate 100mg/10ml Liq GT SCH ×2 (08:36→17:23)
[2016-10-05] MEDS: Sertraline 50mg tab GT SCH (08:36)
[2016-10-05] MEDS: Ferrous Sulfate 300 MG/5 ML UDC GT SCH (08:36)
[2016-10-05] MEDS: Memantine 10mg tab GT SCH (08:37)
[2016-10-05] MEDS: Zinc Sulfate 220mg cap GT SCH (08:37)
[2016-10-05] MEDS: levETIRAcetam 500mg/5ml Liquid GT SCH ×2 (08:37→21:33)
[2016-10-05] MEDS: Allopurinol 100mg Tab GT SCH (08:37)
[2016-10-05] MEDS: Multivitamins W/Minerals 15 ML UDC GT SCH (08:37)
[2016-10-05] MEDS: Tamsulosin 0.4mg cap GT SCH ×2 (08:37→21:34)
[2016-10-05] MEDS: Ascorbic Acid 500mg tab GT SCH (08:37)
[2016-10-05] MEDS: Heparin 5000 units/ml inj SUBQ SCH ×2 (08:38→21:00)
--- NOTE | 2016-10-05 10:59 | General Progress Note ---
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 # Distal common bile duct stone with moderate biliary ductal dilatation s/p sphincterotomy and stone removal and stent placement # Hypertension # Hypothyroidism # Sz disorder Plan: Hydrate- Adjust BP meds- Anemia damon- Antibiotics and pulmonary support favor transfusion- One dose IV Iron Subjective ROS Limited/Unobtainable: No Constitutional: Reports: malaise Allergies: Coded Allergies: No Known Allergies (Unverified , 04/13/15) Objective Last 24 Hour Vital Signs Date Time Temp Pulse Resp B/P Pulse Ox O2 Delivery O2 Flow Rate FiO2 10/05/16 08:36 61 139/69 10/05/16 08:13 97.6 61 20 139/69 95 Room Air 10/05/16 08:10 76 16 Nasal Cannula 3.0 32 10/05/16 08:10 Nasal Cannula 3.0 32 10/05/16 08:10 96 Nasal Cannula 3.0 32 10/05/16 08:00 61 10/05/16 06:02 135/60 10/05/16 04:00 98.2 66 20 136/51 95 Nasal Cannula 3.0 32 10/05/16 04:00 65 10/05/16 00:00 97.5 67 18 106/59 95 Nasal Cannula 3.0 32 10/05/16 00:00 66 10/04/16 22:15 126/60 10/04/16 20:00 97.7 87 18 126/60 95 Nasal Cannula 3.0 32 10/04/16 20:00 64 10/04/16 19:30 Nasal Cannula 3.0 32 10/04/16 19:30 97 Nasal Cannula 3.0 32 10/04/16 19:30 80 16 Nasal Cannula 3.0 32 10/04/16 16:21 97.3 61 20 124/53 95 Nasal Cannula 3.0 10/04/16 16:15 65 20 99 Nasal Cannula 3.0 32 10/04/16 16:08 Nasal Cannula 3.0 32 10/04/16 16:08 97 Nasal Cannula 3.0 32 10/04/16 16:06 60 16 Nasal Cannula 3.0 32 10/04/16 16:06 32 10/04/16 16:05 60 16 97 Nasal Cannula 3.0 32 10/04/16 16:00 68 10/04/16 14:00 125/70 10/04/16 12:06 72 10/04/16 12:03 97.3 61 20 131/59 95 Nasal Cannula 3.0 Intake and Output 10/04/16 10/05/16 19:00 07:00 Intake Total 70 ml 3055 ml Output Total 400 ml 700 ml Balance -330 ml 2355 ml Free Water 730 ml IV Total 1625 ml Tube Feeding 70 ml 700 ml Output Urine Total 400 ml 700 ml # Bowel Movements 1 Laboratory Tests 10/05/16 05:40: White Blood Count 2.7L, Red Blood Count 2.37L, Hemoglobin 7.6L, Hematocrit 23.4L , Mean Corpuscular Volume 99, Mean Corpuscular Hemoglobin 32.1H, Mean Corpuscular Hemoglobin Concent 32.4, Red Cell Distribution Width 14.5, Platelet Count 114L, Mean Platelet Volume 8.4, Neutrophils (%) (Auto) , Lymphocytes (%) ( Auto) , Monocytes (%) (Auto) , Eosinophils (%) (Auto) , Basophils (%) (Auto) , Differential Total Cells Counted 100, Neutrophils % (Manual) 56, Lymphocytes % ( Manual) 18L, Monocytes % (Manual) 16H, Eosinophils % (Manual) 10H, Basophils % ( Manual) 0, Band Neutrophils 0, Platelet Estimate DecreasedL, Platelet Morphology Normal, Hypochromasia 3+, Anisocytosis 1+, Sodium Level 146H, Potassium Level 4.0, Chloride Level 109H, Carbon Dioxide Level 24, Anion Gap 13 , Blood Urea Nitrogen 60H, Creatinine 1.9H, Estimat Glomerular Filtration Rate , Glucose Level 95, Uric Acid 7.0, Calcium Level 8.6, Phosphorus Level 4.9H, Magnesium Level 2.1, Total Bilirubin 0.2, Aspartate Amino Transf (AST/SGOT) 23, Alanine Aminotransferase (ALT/SGPT) 18, Alkaline Phosphatase 64, C-Reactive Protein, Quantitative 10.2H, Pro-B-Type Natriuretic Peptide 4478H, Total Protein 6.2L, Albumin 3.0L, Globulin 3.2, Albumin/Globulin Ratio 0.9L Height (Feet): 5 Height (Inches): 11.00 Weight (Pounds): 175 General Appearance: no apparent distress Objective no change in PE TAWANNA ONEIL Oct 05, 2016 10:59
[2016-10-05 11:30] VITALS: BP 143/57
[2016-10-05] MEDS: D5 1/2NS 1,000 ML IV SCH (12:00)
--- NOTE | 2016-10-05 14:31 | General Progress Note ---
Assessment/Plan Problem List: (1) Gastritis ICD Codes: K29.70 - Gastritis, unspecified, without bleeding SNOMED: 0276007 (2) Hypothyroidism ICD Codes: E03.9 - Hypothyroidism, unspecified SNOMED: 88104428 (3) Hypoalbuminemia ICD Codes: E88.09 - Other disorders of plasma-protein metabolism, not elsewhere classified SNOMED: 937534389 (4) Acute renal failure ICD Codes: N17.9 - Acute kidney failure, unspecified SNOMED: 97642596 (5) Sepsis ICD Codes: A41.9 - Sepsis, unspecified organism SNOMED: 72867055 (6) Respiratory insufficiency ICD Codes: R06.89 - Other abnormalities of breathing SNOMED: 313836778 (7) Anemia ICD Codes: D64.9 - Anemia, unspecified SNOMED: 256687349 (8) Atrial fibrillation ICD Codes: I48.91 - Unspecified atrial fibrillation SNOMED: 43767072 Status: progressing Assessment/Plan pna improving poor historian reviewed chart and labs afebrile Subjective ROS Limited/Unobtainable: Yes Allergies: Coded Allergies: No Known Allergies (Unverified , 04/13/15) Objective Last 24 Hour Vital Signs Date Time Temp Pulse Resp B/P Pulse Ox O2 Delivery O2 Flow Rate FiO2 10/05/16 13:20 143/57 10/05/16 12:00 61 10/05/16 11:30 98.9 62 19 143/57 95 Room Air 10/05/16 08:36 61 139/69 10/05/16 08:13 97.6 61 20 139/69 95 Room Air 10/05/16 08:10 76 16 Nasal Cannula 3.0 32 10/05/16 08:10 Nasal Cannula 3.0 32 10/05/16 08:10 96 Nasal Cannula 3.0 32 10/05/16 08:00 61 10/05/16 06:02 135/60 10/05/16 04:00 98.2 66 20 136/51 95 Nasal Cannula 3.0 32 10/05/16 04:00 65 10/05/16 00:00 97.5 67 18 106/59 95 Nasal Cannula 3.0 32 10/05/16 00:00 66 10/04/16 22:15 126/60 10/04/16 20:00 97.7 87 18 126/60 95 Nasal Cannula 3.0 32 10/04/16 20:00 64 10/04/16 19:30 Nasal Cannula 3.0 32 10/04/16 19:30 97 Nasal Cannula 3.0 32 10/04/16 19:30 80 16 Nasal Cannula 3.0 32 10/04/16 16:21 97.3 61 20 124/53 95 Nasal Cannula 3.0 10/04/16 16:15 65 20 99 Nasal Cannula 3.0 32 10/04/16 16:08 Nasal Cannula 3.0 32 10/04/16 16:08 97 Nasal Cannula 3.0 32 10/04/16 16:06 60 16 Nasal Cannula 3.0 32 10/04/16 16:06 32 10/04/16 16:05 60 16 97 Nasal Cannula 3.0 32 10/04/16 16:00 68 Intake and Output 10/04/16 10/05/16 19:00 07:00 Intake Total 70 ml 3055 ml Output Total 400 ml 700 ml Balance -330 ml 2355 ml Free Water 730 ml IV Total 1625 ml Tube Feeding 70 ml 700 ml Output Urine Total 400 ml 700 ml # Bowel Movements 1 Laboratory Tests 10/05/16 05:40: White Blood Count 2.7L, Red Blood Count 2.37L, Hemoglobin 7.6L, Hematocrit 23.4L , Mean Corpuscular Volume 99, Mean Corpuscular Hemoglobin 32.1H, Mean Corpuscular Hemoglobin Concent 32.4, Red Cell Distribution Width 14.5, Platelet Count 114L, Mean Platelet Volume 8.4, Neutrophils (%) (Auto) , Lymphocytes (%) ( Auto) , Monocytes (%) (Auto) , Eosinophils (%) (Auto) , Basophils (%) (Auto) , Differential Total Cells Counted 100, Neutrophils % (Manual) 56, Lymphocytes % ( Manual) 18L, Monocytes % (Manual) 16H, Eosinophils % (Manual) 10H, Basophils % ( Manual) 0, Band Neutrophils 0, Platelet Estimate DecreasedL, Platelet Morphology Normal, Hypochromasia 3+, Anisocytosis 1+, Sodium Level 146H, Potassium Level 4.0, Chloride Level 109H, Carbon Dioxide Level 24, Anion Gap 13 , Blood Urea Nitrogen 60H, Creatinine 1.9H, Estimat Glomerular Filtration Rate , Glucose Level 95, Uric Acid 7.0, Calcium Level 8.6, Phosphorus Level 4.9H, Magnesium Level 2.1, Total Bilirubin 0.2, Aspartate Amino Transf (AST/SGOT) 23, Alanine Aminotransferase (ALT/SGPT) 18, Alkaline Phosphatase 64, C-Reactive Protein, Quantitative 10.2H, Pro-B-Type Natriuretic Peptide 4478H, Total Protein 6.2L, Albumin 3.0L, Globulin 3.2, Albumin/Globulin Ratio 0.9L Height (Feet): 5 Height (Inches): 11.00 Weight (Pounds): 175 EENT: PERRL/EOMI Neck: supple Cardiovascular: normal rate Respiratory/Chest: lungs clear Seth Lee MD Oct 05, 2016 14:31
[2016-10-05] MEDS: DuoNeb 0.5-3(2.5)mg/3ml neb HHN PRN (14:56)
--- NOTE | 2016-10-05 15:11 | General Progress Note ---
Assessment/Plan Assessment/Plan # Anemia secondary to chronic disease GI service is on the case --> hgb goal >7, transfuse as needed --> work up shows e/o chronic disease # Anemia secondary to kidney disease - epogen as needed # RLE DVT hx however has recurrent GI bleed therefore no coumadin or lovenox --> have attempted several times at anticoagulating and has bleed each time # MARCO A on CKD, baseline Cr is 1.5 # Hx of leukocytosis secondary to infection/stress-> from before resolved # Hx thrombocytopenia secondary to infection likely-> from before resolved # Distal common bile duct stone with moderate biliary ductal dilatation s/p sphincterotomy and stone removal and stent placement # Hypertension # Hypothyroidism # Altered mental status # Dehydration. # s/p TURP # Bilateral hydroureter/hydronephrosis Subjective Date patient seen: Oct 04, 2016 Constitutional: Reports: no symptoms HEENT: Reports: no symptoms Cardiovascular: Reports: no symptoms Respiratory: Reports: no symptoms Gastrointestinal/Abdominal: Reports: no symptoms Genitourinary: Reports: no symptoms Neurologic/Psychiatric: Reports: no symptoms Endocrine: Reports: no symptoms Hematologic/Lymphatic: Reports: anemia Allergies: Coded Allergies: No Known Allergies (Unverified , 04/13/15) Subjective afebrile, no events overnight Objective Last 24 Hour Vital Signs Date Time Temp Pulse Resp B/P Pulse Ox O2 Delivery O2 Flow Rate FiO2 10/05/16 15:05 78 20 99 Nasal Cannula 3.0 32 10/05/16 14:56 32 10/05/16 14:56 75 18 93 Nasal Cannula 3.0 36 10/05/16 13:20 143/57 10/05/16 12:00 61 10/05/16 11:30 98.9 62 19 143/57 95 Room Air 10/05/16 08:36 61 139/69 10/05/16 08:13 97.6 61 20 139/69 95 Room Air 10/05/16 08:10 76 16 Nasal Cannula 3.0 32 10/05/16 08:10 Nasal Cannula 3.0 32 10/05/16 08:10 96 Nasal Cannula 3.0 32 10/05/16 08:00 61 10/05/16 06:02 135/60 10/05/16 04:00 98.2 66 20 136/51 95 Nasal Cannula 3.0 32 10/05/16 04:00 65 8/9/17 00:00 97.5 67 18 106/59 95 Nasal Cannula 3.0 32 10/05/16 00:00 66 10/04/16 22:15 126/60 10/04/16 20:00 97.7 87 18 126/60 95 Nasal Cannula 3.0 32 10/04/16 20:00 64 10/04/16 19:30 Nasal Cannula 3.0 32 10/04/16 19:30 97 Nasal Cannula 3.0 32 10/04/16 19:30 80 16 Nasal Cannula 3.0 32 10/04/16 16:21 97.3 61 20 124/53 95 Nasal Cannula 3.0 10/04/16 16:15 65 20 99 Nasal Cannula 3.0 32 10/04/16 16:08 Nasal Cannula 3.0 32 10/04/16 16:08 97 Nasal Cannula 3.0 32 10/04/16 16:06 60 16 Nasal Cannula 3.0 32 10/04/16 16:06 32 10/04/16 16:05 60 16 97 Nasal Cannula 3.0 32 10/04/16 16:00 68 Intake and Output 10/04/16 10/05/16 19:00 07:00 Intake Total 70 ml 3055 ml Output Total 400 ml 700 ml Balance -330 ml 2355 ml Free Water 730 ml IV Total 1625 ml Tube Feeding 70 ml 700 ml Output Urine Total 400 ml 700 ml # Bowel Movements 1 Laboratory Tests 10/05/16 05:40: White Blood Count 2.7L, Red Blood Count 2.37L, Hemoglobin 7.6L, Hematocrit 23.4L , Mean Corpuscular Volume 99, Mean Corpuscular Hemoglobin 32.1H, Mean Corpuscular Hemoglobin Concent 32.4, Red Cell Distribution Width 14.5, Platelet Count 114L, Mean Platelet Volume 8.4, Neutrophils (%) (Auto) , Lymphocytes (%) ( Auto) , Monocytes (%) (Auto) , Eosinophils (%) (Auto) , Basophils (%) (Auto) , Differential Total Cells Counted 100, Neutrophils % (Manual) 56, Lymphocytes % ( Manual) 18L, Monocytes % (Manual) 16H, Eosinophils % (Manual) 10H, Basophils % ( Manual) 0, Band Neutrophils 0, Platelet Estimate DecreasedL, Platelet Morphology Normal, Hypochromasia 3+, Anisocytosis 1+, Sodium Level 146H, Potassium Level 4.0, Chloride Level 109H, Carbon Dioxide Level 24, Anion Gap 13 , Blood Urea Nitrogen 60H, Creatinine 1.9H, Estimat Glomerular Filtration Rate , Glucose Level 95, Uric Acid 7.0, Calcium Level 8.6, Phosphorus Level 4.9H, Magnesium Level 2.1, Total Bilirubin 0.2, Aspartate Amino Transf (AST/SGOT) 23, Alanine Aminotransferase (ALT/SGPT) 18, Alkaline Phosphatase 64, C-Reactive Protein, Quantitative 10.2H, Pro-B-Type Natriuretic Peptide 4478H, Total Protein 6.2L, Albumin 3.0L, Globulin 3.2, Albumin/Globulin Ratio 0.9L Height (Feet): 5 Height (Inches): 11.00 Weight (Pounds): 175 General Appearance: no apparent distress EENT: normal ENT inspection Neck: normal alignment Cardiovascular: normal peripheral pulses Respiratory/Chest: chest wall non-tender Abdomen: normal bowel sounds Extremities: non-tender Esdras Moraes Oct 05, 2016 15:11
--- NOTE | 2016-10-05 15:26 | Infectious Diseases Prog Note ---
Assessment/Plan Problems: (1) HCAP (healthcare-associated pneumonia) Assessment & Plan: on cefepime and clindamycin empirically, improving, will switch clindamycin to vancomycin since his creatinine improved, sputum culture showed normal respiratory hany. will treat for 10 days (2) Fever Assessment & Plan: improved , due to the above, continue wide spectrum antibiotics, and tylenol (3) Sepsis Assessment & Plan: due to the above, await blood culture, continue wide spectrum antibiotics Subjective ROS Limited/Unobtainable: Yes Allergies: Coded Allergies: No Known Allergies (Unverified , 04/13/15) Subjective he had chest congestion with wet cough , mild wheezing, but not short of breath , comfortable, nonverbal, doesn't follow commands . Objective Vital Signs Last 24 Hour Vital Signs Date Time Temp Pulse Resp B/P Pulse Ox O2 Delivery O2 Flow Rate FiO2 10/05/16 15:05 78 20 99 Nasal Cannula 3.0 32 10/05/16 14:56 32 10/05/16 14:56 75 18 93 Nasal Cannula 3.0 36 10/05/16 13:20 143/57 10/05/16 12:00 61 10/05/16 11:30 98.9 62 19 143/57 95 Room Air 10/05/16 08:36 61 139/69 10/05/16 08:13 97.6 61 20 139/69 95 Room Air 10/05/16 08:10 76 16 Nasal Cannula 3.0 32 10/05/16 08:10 Nasal Cannula 3.0 32 10/05/16 08:10 96 Nasal Cannula 3.0 32 10/05/16 08:00 61 10/05/16 06:02 135/60 10/05/16 04:00 98.2 66 20 136/51 95 Nasal Cannula 3.0 32 10/05/16 04:00 65 10/05/16 00:00 97.5 67 18 106/59 95 Nasal Cannula 3.0 32 10/05/16 00:00 66 10/04/16 22:15 126/60 10/04/16 20:00 97.7 87 18 126/60 95 Nasal Cannula 3.0 32 10/04/16 20:00 64 10/04/16 19:30 Nasal Cannula 3.0 32 10/04/16 19:30 97 Nasal Cannula 3.0 32 10/04/16 19:30 80 16 Nasal Cannula 3.0 32 10/04/16 16:21 97.3 61 20 124/53 95 Nasal Cannula 3.0 10/04/16 16:15 65 20 99 Nasal Cannula 3.0 32 10/04/16 16:08 Nasal Cannula 3.0 32 10/04/16 16:08 97 Nasal Cannula 3.0 32 10/04/16 16:06 60 16 Nasal Cannula 3.0 32 10/04/16 16:06 32 10/04/16 16:05 60 16 97 Nasal Cannula 3.0 32 10/04/16 16:00 68 Height (Feet): 5 Height (Inches): 11.00 Weight (Pounds): 175 General Appearance: WD/WN, no acute distress HEENT: normocephalic, atraumatic, anicteric, mucous membranes moist Respiratory/Chest: normal breath sounds, no respiratory distress, no accessory muscle use, decreased breath sounds, expiratory wheezing Cardiovascular: normal peripheral pulses, normal rate, regular rhythm, no gallop/murmur, no JVD Abdomen: normal bowel sounds, soft, non tender, no organomegaly, non distended , no mass, no scars Extremities: no cyanosis, no clubbing Skin: no rash, no lesions Neurologic/Psychiatric: alert Microbiology Date/Time Source Procedure Growth Status 10/02/16 21:30 Sputum Expectorated Gram Stain - Final Complete 10/02/16 21:30 Sputum Expectorated Sputum Culture - Final NORMAL UPPER RESPIRATORY HANY PRESENT Complete 10/02/16 16:19 Nasal Nares MRSA Culture - Final Staphylococcus Aureus - Mrsa Complete 10/02/16 16:19 Rectum VRE Culture - Final Enterococcus Faecium - Vre Complete Laboratory Tests Test 10/05/16 05:40 White Blood Count 2.7 K/UL (4.8-10.8) L Red Blood Count 2.37 M/UL (4.70-6.10) L Hemoglobin 7.6 G/DL (14.2-18.0) L Hematocrit 23.4 % (42.0-52.0) L Mean Corpuscular Volume 99 FL (80-99) Mean Corpuscular Hemoglobin 32.1 PG (27.0-31.0) H Mean Corpuscular Hemoglobin Concent 32.4 G/DL (32.0-36.0) Red Cell Distribution Width 14.5 % (11.6-14.8) Platelet Count 114 K/UL (150-450) L Mean Platelet Volume 8.4 FL (6.5-10.1) Neutrophils (%) (Auto) % (45.0-75.0) Lymphocytes (%) (Auto) % (20.0-45.0) Monocytes (%) (Auto) % (1.0-10.0) Eosinophils (%) (Auto) % (0.0-3.0) Basophils (%) (Auto) % (0.0-2.0) Differential Total Cells Counted 100 Neutrophils % (Manual) 56 % (45-75) Lymphocytes % (Manual) 18 % (20-45) L Monocytes % (Manual) 16 % (1-10) H Eosinophils % (Manual) 10 % (0-3) H Basophils % (Manual) 0 % (0-2) Band Neutrophils 0 % (0-8) Platelet Estimate Decreased L Platelet Morphology Normal Hypochromasia 3+ Anisocytosis 1+ Sodium Level 146 mEQ/L (135-145) H Potassium Level 4.0 mEQ/L (3.4-4.9) Chloride Level 109 mEQ/L (98-107) H Carbon Dioxide Level 24 mEQ/L (20-30) Anion Gap 13 (5-15) Blood Urea Nitrogen 60 mg/dL (7-23) H Creatinine 1.9 mg/dL (0.7-1.2) H Estimat Glomerular Filtration Rate mL/min (>60) Glucose Level 95 mg/dL (74-106) Uric Acid 7.0 mg/dL (3.0-7.5) Calcium Level 8.6 mg/dL (8.6-10.2) Phosphorus Level 4.9 mg/dL (2.5-4.8) H Magnesium Level 2.1 mg/dL (1.7-2.5) Total Bilirubin 0.2 mg/dL (0.0-1.2) Aspartate Amino Transf (AST/SGOT) 23 U/L (5-40) Alanine Aminotransferase (ALT/SGPT) 18 U/L (3-41) Alkaline Phosphatase 64 U/L (40-129) C-Reactive Protein, Quantitative 10.2 mg/dL (< 0.5) H Pro-B-Type Natriuretic Peptide 4478 pg/mL (0-450) H Total Protein 6.2 g/dL (6.6-8.7) L Albumin 3.0 g/dL (3.5-5.2) L Globulin 3.2 g/dL Albumin/Globulin Ratio 0.9 (1.0-2.7) L Current Medications Medications (Trade) Dose Ordered Sig/Marci Route PRN Reason Start Time Stop Time Status Last Admin Dose Admin Acetaminophen (Tylenol) 325 mg Q4H PRN ORAL Headache/Temp > 101 10/02/16 17:00 11/01/16 16:59 Albuterol/ Ipratropium (DuoNeb 0.5-3(2.5)mg/3ml) 3 ml Q6HRT PRN HHN Shortness of Breath 10/03/16 01:00 10/08/16 00:59 10/05/16 14:56 Allopurinol (Zyloprim) 100 mg DAILY GT 10/03/16 09:00 11/02/16 08:59 10/05/16 08:37 Amlodipine Besylate (Norvasc) 2.5 mg DAILY GT 10/04/16 09:00 11/03/16 08:59 10/05/16 08:36 Ascorbic Acid (Vitamin C) 500 mg DAILY GT 10/03/16 09:00 11/02/16 08:59 10/05/16 08:37 Cefepime HCl/ Dextrose (Maxipime/D5W) 55 ml @ 110 mls/hr Q24H IVPB 10/03/16 18:00 10/10/16 17:59 10/04/16 18:00 Clindamycin HCl/ Dextrose 50 ml @ 100 mls/hr Q8HR IV 10/02/16 20:00 10/09/16 19:59 10/05/16 13:20 Clonidine HCl (Catapres) 0.1 mg Q4H PRN ORAL bp over 160 syst 10/03/16 12:00 11/02/16 11:59 Dextrose/Sodium Chloride (D5 0.45% NS) 1,000 ml @ 75 mls/hr [id number] IV 10/04/16 09:30 11/03/16 09:29 10/05/16 12:00 Docusate Sodium (Colace) 250 mg BID GT 10/02/16 22:30 11/01/16 22:29 10/05/16 08:36 Donepezil HCl 10 mg 10 mg QHS GT 10/04/16 21:00 11/03/16 20:59 10/04/16 20:50 Epoetin Buddy (Procrit (for non ESRD use)) 10,000 units MON-WED-MON SUBQ 10/05/16 21:00 11/04/16 20:59 Ferrous Sulfate (Feosol) 300 mg DAILY GT 10/03/16 09:00 11/02/16 08:59 10/05/16 08:36 Finasteride (Proscar) 5 mg DAILY GT 10/03/16 09:00 11/02/16 08:59 10/05/16 08:37 Heparin Sodium (Porcine) (Heparin 5000 units/ml) 5,000 units EVERY 12 HOURS SUBQ 10/02/16 21:00 11/01/16 20:59 Hydralazine HCl (Apresoline) 25 mg Q8HR GT 10/03/16 22:00 11/02/16 21:59 10/05/16 13:20 Levetiracetam (Keppra) 500 mg Q12HR GT 10/02/16 21:00 11/01/16 20:59 10/05/16 08:37 Levothyroxine Sodium (Synthroid) 25 mcg ACBREAKFAST GT 10/03/16 06:30 11/02/16 06:29 10/05/16 06:02 Lorazepam (Ativan) 0.5 mg DAILYPRN PRN GT ANXIETY 10/02/16 22:03 10/09/16 17:59 Memantine (Namenda) 10 mg DAILY GT 10/03/16 09:00 11/02/16 08:59 10/05/16 08:37 Multivitamins (Multivitamins W/ Minerals 15ml Liquid) 15 ml DAILY GT 10/03/16 09:00 11/02/16 08:59 10/05/16 08:37 Ondansetron HCl 4 mg 4 mg Q6H PRN IVP Nausea & Vomiting 10/02/16 16:00 11/01/16 15:59 Sertraline HCl (Zoloft) 50 mg DAILY GT 10/03/16 09:00 11/02/16 08:59 10/05/16 08:36 Tamsulosin HCl (Flomax) 0.4 mg Q12HR GT 10/03/16 21:00 11/02/16 20:59 10/05/16 08:37 Zinc Sulfate (Zinc Sulfate) 220 mg DAILY GT 10/03/16 09:00 11/02/16 08:59 10/05/16 08:37 Robles Mari M.D. Oct 05, 2016 15:26
--- NOTE | 2016-10-05 15:42 | Cardiac Electrophysiology PN ---
Assessment/Plan Assessment/Plan 1. Paroxysmal atrial fibrillation.Currently in sinus rhythm with premature atrial complexes.Has history of atrial fibrillation on previous records of [facility] just about a month ago. 2. Hypertension, on Norvasc 2.5 mg daily and hydralazine 25 mg every eight hours. 3. Renal failure. 4. Dysphagia, status post percutaneous endoscopic gastrostomy placement. 5. Dementia. 6. Severe anemia. Anemia could be due to his renal failure. JUDE RN at bedside DC tele Subjective Subjective No arrhythmias on tele.Remained in SR. Comfortable in NAD. Objective Last 24 Hour Vital Signs Date Time Temp Pulse Resp B/P Pulse Ox O2 Delivery O2 Flow Rate FiO2 10/05/16 15:05 78 20 99 Nasal Cannula 3.0 32 10/05/16 14:56 32 10/05/16 14:56 75 18 93 Nasal Cannula 3.0 36 10/05/16 13:20 143/57 10/05/16 12:00 61 10/05/16 11:30 98.9 62 19 143/57 95 Room Air 10/05/16 08:36 61 139/69 10/05/16 08:13 97.6 61 20 139/69 95 Room Air 10/05/16 08:10 76 16 Nasal Cannula 3.0 32 10/05/16 08:10 Nasal Cannula 3.0 32 10/05/16 08:10 96 Nasal Cannula 3.0 32 10/05/16 08:00 61 10/05/16 06:02 135/60 10/05/16 04:00 98.2 66 20 136/51 95 Nasal Cannula 3.0 32 10/05/16 04:00 65 10/05/16 00:00 97.5 67 18 106/59 95 Nasal Cannula 3.0 32 10/05/16 00:00 66 10/04/16 22:15 126/60 10/04/16 20:00 97.7 87 18 126/60 95 Nasal Cannula 3.0 32 10/04/16 20:00 64 10/04/16 19:30 Nasal Cannula 3.0 32 10/04/16 19:30 97 Nasal Cannula 3.0 32 10/04/16 19:30 80 16 Nasal Cannula 3.0 32 10/04/16 16:21 97.3 61 20 124/53 95 Nasal Cannula 3.0 10/04/16 16:15 65 20 99 Nasal Cannula 3.0 32 10/04/16 16:08 Nasal Cannula 3.0 32 10/04/16 16:08 97 Nasal Cannula 3.0 32 10/04/16 16:06 60 16 Nasal Cannula 3.0 32 10/04/16 16:06 32 10/04/16 16:05 60 16 97 Nasal Cannula 3.0 32 10/04/16 16:00 68 Intake and Output 10/04/16 10/05/16 19:00 07:00 Intake Total 70 ml 3055 ml Output Total 400 ml 700 ml Balance -330 ml 2355 ml Free Water 730 ml IV Total 1625 ml Tube Feeding 70 ml 700 ml Output Urine Total 400 ml 700 ml # Bowel Movements 1 Laboratory Tests Test 10/05/16 05:40 White Blood Count 2.7 K/UL (4.8-10.8) L Red Blood Count 2.37 M/UL (4.70-6.10) L Hemoglobin 7.6 G/DL (14.2-18.0) L Hematocrit 23.4 % (42.0-52.0) L Mean Corpuscular Volume 99 FL (80-99) Mean Corpuscular Hemoglobin 32.1 PG (27.0-31.0) H Mean Corpuscular Hemoglobin Concent 32.4 G/DL (32.0-36.0) Red Cell Distribution Width 14.5 % (11.6-14.8) Platelet Count 114 K/UL (150-450) L Mean Platelet Volume 8.4 FL (6.5-10.1) Neutrophils (%) (Auto) % (45.0-75.0) Lymphocytes (%) (Auto) % (20.0-45.0) Monocytes (%) (Auto) % (1.0-10.0) Eosinophils (%) (Auto) % (0.0-3.0) Basophils (%) (Auto) % (0.0-2.0) Differential Total Cells Counted 100 Neutrophils % (Manual) 56 % (45-75) Lymphocytes % (Manual) 18 % (20-45) L Monocytes % (Manual) 16 % (1-10) H Eosinophils % (Manual) 10 % (0-3) H Basophils % (Manual) 0 % (0-2) Band Neutrophils 0 % (0-8) Platelet Estimate Decreased L Platelet Morphology Normal Hypochromasia 3+ Anisocytosis 1+ Sodium Level 146 mEQ/L (135-145) H Potassium Level 4.0 mEQ/L (3.4-4.9) Chloride Level 109 mEQ/L (98-107) H Carbon Dioxide Level 24 mEQ/L (20-30) Anion Gap 13 (5-15) Blood Urea Nitrogen 60 mg/dL (7-23) H Creatinine 1.9 mg/dL (0.7-1.2) H Estimat Glomerular Filtration Rate mL/min (>60) Glucose Level 95 mg/dL (74-106) Uric Acid 7.0 mg/dL (3.0-7.5) Calcium Level 8.6 mg/dL (8.6-10.2) Phosphorus Level 4.9 mg/dL (2.5-4.8) H Magnesium Level 2.1 mg/dL (1.7-2.5) Total Bilirubin 0.2 mg/dL (0.0-1.2) Aspartate Amino Transf (AST/SGOT) 23 U/L (5-40) Alanine Aminotransferase (ALT/SGPT) 18 U/L (3-41) Alkaline Phosphatase 64 U/L (40-129) C-Reactive Protein, Quantitative 10.2 mg/dL (< 0.5) H Pro-B-Type Natriuretic Peptide 4478 pg/mL (0-450) H Total Protein 6.2 g/dL (6.6-8.7) L Albumin 3.0 g/dL (3.5-5.2) L Globulin 3.2 g/dL Albumin/Globulin Ratio 0.9 (1.0-2.7) L Microbiology Date/Time Source Procedure Growth Status 10/02/16 21:30 Sputum Expectorated Gram Stain - Final Complete 10/02/16 21:30 Sputum Expectorated Sputum Culture - Final NORMAL UPPER RESPIRATORY ANGEL PRESENT Complete 10/02/16 16:19 Nasal Nares MRSA Culture - Final Staphylococcus Aureus - Mrsa Complete 10/02/16 16:19 Rectum VRE Culture - Final Enterococcus Faecium - Vre Complete Objective HEAD AND NECK: No JVD. LUNGS: Coarse rhonchi. CARDIOVASCULAR: Regular S1 and S2 with no gallop. ABDOMEN: Status post G-tube. EXTREMITIES: There is 1+ pitting edema. RAKESH ALEXANDER Oct 05, 2016 15:42
[2016-10-05 15:45] VITALS: BP 143/61
[2016-10-05] MEDS ORDERED: Vancomycin 1250mg/D5W 250ml IVPB ONE (17:00)
[2016-10-05] MEDS: Cefepime 1gm/D5W 55ml IVPB SCH ×2 (17:11)
[2016-10-05 20:00] VITALS: BP 151/83
[2016-10-05] MEDS ORDERED: LORazepam 0.5mg tab GT PRN (21:00)
[2016-10-05] MEDS ORDERED: DuoNeb 0.5-3(2.5)mg/3ml neb HHN PRN (21:00)
[2016-10-05] MEDS ORDERED: Epogen (for non ESRD use) SUBQ SCH ×2 (21:00→21:30)
[2016-10-05] MEDS ORDERED: D5 1/2NS 1,000 ML IV SCH (21:00)
--- NOTE | 2016-10-05 21:01 | General Progress Note ---
Assessment/Plan Assessment/Plan # Anemia secondary to chronic disease GI service is on the case --> hgb goal >7, transfuse as needed --> work up shows e/o chronic disease # Anemia secondary to kidney disease - epogen as needed # RLE DVT hx however has recurrent GI bleed therefore no coumadin or lovenox --> have attempted several times at anticoagulating and has bleed each time # MARCO A on CKD, baseline Cr is 1.5 # Hx of leukocytosis secondary to infection/stress-> from before resolved # Hx thrombocytopenia secondary to infection likely-> from before resolved # Distal common bile duct stone with moderate biliary ductal dilatation s/p sphincterotomy and stone removal and stent placement # Hypertension # Hypothyroidism # Altered mental status # Dehydration. # s/p TURP # Bilateral hydroureter/hydronephrosis Subjective Constitutional: Reports: no symptoms HEENT: Reports: no symptoms Cardiovascular: Reports: no symptoms Respiratory: Reports: no symptoms Gastrointestinal/Abdominal: Reports: no symptoms Genitourinary: Reports: no symptoms Neurologic/Psychiatric: Reports: pre-existing deficit Hematologic/Lymphatic: Reports: no symptoms Allergies: Coded Allergies: No Known Allergies (Unverified , 04/13/15) Subjective afebrile, no events overnight Objective Last 24 Hour Vital Signs Date Time Temp Pulse Resp B/P Pulse Ox O2 Delivery O2 Flow Rate FiO2 10/05/16 20:16 Nasal Cannula 2.0 28 10/05/16 20:15 67 18 Nasal Cannula 2.0 28 10/05/16 20:15 97 Nasal Cannula 2.0 28 10/05/16 20:00 98.9 71 20 151/83 96 Room Air 10/05/16 16:00 62 10/05/16 15:45 99.0 70 20 143/61 97 Nasal Cannula 2.0 10/05/16 15:05 78 20 99 Nasal Cannula 3.0 32 10/05/16 14:56 32 10/05/16 14:56 75 18 93 Nasal Cannula 3.0 36 10/05/16 13:20 143/57 10/05/16 12:00 61 10/05/16 11:30 98.9 62 19 143/57 95 Room Air 10/05/16 08:36 61 139/69 10/05/16 08:13 97.6 61 20 139/69 95 Room Air 10/05/16 08:10 76 16 Nasal Cannula 3.0 32 10/05/16 08:10 Nasal Cannula 3.0 32 10/05/16 08:10 96 Nasal Cannula 3.0 32 10/05/16 08:00 61 10/05/16 06:02 135/60 10/05/16 04:00 98.2 66 20 136/51 95 Nasal Cannula 3.0 32 10/05/16 04:00 65 10/05/16 00:00 97.5 67 18 106/59 95 Nasal Cannula 3.0 32 10/05/16 00:00 66 10/04/16 22:15 126/60 Intake and Output 10/04/16 10/05/16 19:00 07:00 Intake Total 70 ml 3055 ml Output Total 400 ml 700 ml Balance -330 ml 2355 ml Free Water 730 ml IV Total 1625 ml Tube Feeding 70 ml 700 ml Output Urine Total 400 ml 700 ml # Bowel Movements 1 Laboratory Tests 10/05/16 05:40: White Blood Count 2.7L, Red Blood Count 2.37L, Hemoglobin 7.6L, Hematocrit 23.4L , Mean Corpuscular Volume 99, Mean Corpuscular Hemoglobin 32.1H, Mean Corpuscular Hemoglobin Concent 32.4, Red Cell Distribution Width 14.5, Platelet Count 114L, Mean Platelet Volume 8.4, Neutrophils (%) (Auto) , Lymphocytes (%) ( Auto) , Monocytes (%) (Auto) , Eosinophils (%) (Auto) , Basophils (%) (Auto) , Differential Total Cells Counted 100, Neutrophils % (Manual) 56, Lymphocytes % ( Manual) 18L, Monocytes % (Manual) 16H, Eosinophils % (Manual) 10H, Basophils % ( Manual) 0, Band Neutrophils 0, Platelet Estimate DecreasedL, Platelet Morphology Normal, Hypochromasia 3+, Anisocytosis 1+, Sodium Level 146H, Potassium Level 4.0, Chloride Level 109H, Carbon Dioxide Level 24, Anion Gap 13 , Blood Urea Nitrogen 60H, Creatinine 1.9H, Estimat Glomerular Filtration Rate , Glucose Level 95, Uric Acid 7.0, Calcium Level 8.6, Phosphorus Level 4.9H, Magnesium Level 2.1, Total Bilirubin 0.2, Aspartate Amino Transf (AST/SGOT) 23, Alanine Aminotransferase (ALT/SGPT) 18, Alkaline Phosphatase 64, C-Reactive Protein, Quantitative 10.2H, Pro-B-Type Natriuretic Peptide 4478H, Total Protein 6.2L, Albumin 3.0L, Globulin 3.2, Albumin/Globulin Ratio 0.9L Height (Feet): 5 Height (Inches): 11.00 Weight (Pounds): 175 General Appearance: no apparent distress EENT: PERRL/EOMI Neck: non-tender Cardiovascular: normal rate Respiratory/Chest: normal breath sounds Edema: no edema noted Pedal (L), no edema noted Pedal (R) 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
[2016-10-05] MEDS: Donepezil 10mg tab GT SCH (21:33)
[2016-10-05] MEDS ORDERED: D5 1/2NS 1000ml IV ONE (21:43)
[2016-10-05] MEDS ORDERED: NS 275ml ONE (21:43)
[2016-10-05] MEDS ORDERED: Tubing IV Secondary IV ONE (21:43)
[2016-10-06] VITALS (7 sets, daily range): BP systolic 127–182; BP diastolic 54–99
[2016-10-06] MEDS: Levothyroxine 25mcg tab GT SCH (05:44)
[2016-10-06] MEDS: HydrALAZINE 25mg tab GT SCH ×3 (05:45→21:34)
[2016-10-06] MEDS: Docusate 100mg/10ml Liq GT SCH ×2 (08:30→17:19)
[2016-10-06] MEDS: Ferrous Sulfate 300 MG/5 ML UDC GT SCH (08:30)
[2016-10-06] MEDS: Multivitamins W/Minerals 15 ML UDC GT SCH (08:30)
[2016-10-06] MEDS: levETIRAcetam 500mg/5ml Liquid GT SCH ×2 (08:31→21:35)
[2016-10-06] MEDS: Allopurinol 100mg Tab GT SCH (08:31)
[2016-10-06] MEDS: Ascorbic Acid 500mg tab GT SCH (08:32)
[2016-10-06] MEDS: Tamsulosin 0.4mg cap GT SCH ×2 (08:32→21:35)
[2016-10-06] MEDS: Zinc Sulfate 220mg cap GT SCH (08:32)
[2016-10-06] MEDS: Sertraline 50mg tab GT SCH (08:32)
[2016-10-06] MEDS: Memantine 10mg tab GT SCH (08:32)
[2016-10-06] MEDS: Heparin 5000 units/ml inj SUBQ SCH ×2 (08:35→21:00)
--- NOTE | 2016-10-06 09:18 | General Progress Note ---
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 # Distal common bile duct stone with moderate biliary ductal dilatation s/p sphincterotomy and stone removal and stent placement # Hypertension # Hypothyroidism # Sz disorder Plan: no labs today Hydrate- Adjust BP meds- Anemia damon- Antibiotics and pulmonary support favor transfusion- One dose IV Iron Subjective ROS Limited/Unobtainable: No Constitutional: Reports: malaise Allergies: Coded Allergies: No Known Allergies (Unverified , 04/13/15) Objective Last 24 Hour Vital Signs Date Time Temp Pulse Resp B/P Pulse Ox O2 Delivery O2 Flow Rate FiO2 10/06/16 08:35 65 127/58 10/06/16 08:07 97.5 65 18 127/58 96 Room Air 10/06/16 06:18 98.8 80 20 131/54 97 Room Air 10/06/16 05:45 163/87 10/06/16 04:45 172/75 10/06/16 04:00 98.8 80 20 131/54 97 Room Air 10/06/16 00:00 97.3 66 18 172/75 96 Nasal Cannula 2.0 28 10/05/16 21:34 151/83 10/05/16 20:16 Nasal Cannula 2.0 28 10/05/16 20:15 67 18 Nasal Cannula 2.0 28 10/05/16 20:15 97 Nasal Cannula 2.0 28 10/05/16 20:00 98.9 71 20 151/83 96 Room Air 10/05/16 16:00 62 10/05/16 15:45 99.0 70 20 143/61 97 Nasal Cannula 2.0 10/05/16 15:05 78 20 99 Nasal Cannula 3.0 32 10/05/16 14:56 32 10/05/16 14:56 75 18 93 Nasal Cannula 3.0 36 10/05/16 13:20 143/57 10/05/16 12:00 61 10/05/16 11:30 98.9 62 19 143/57 95 Room Air Intake and Output 10/05/16 10/06/16 19:00 07:00 Intake Total 2636.667 ml 2125 ml Output Total 1600 ml 2000 ml Balance 1036.667 ml 125 ml Free Water 700 ml 1050 ml IV Total 1096.667 ml 375 ml Tube Feeding 840 ml 700 ml Output Urine Total 1600 ml 2000 ml # Voids 3 # Bowel Movements 1 Height (Feet): 5 Height (Inches): 11.00 Weight (Pounds): 175 General Appearance: no apparent distress Cardiovascular: regular rhythm Abdomen: soft Objective no change in PE TAWANNA ONEIL Oct 06, 2016 09:18
--- NOTE | 2016-10-06 09:43 | Cardiac Electrophysiology PN ---
Assessment/Plan Assessment/Plan 1. Paroxysmal atrial fibrillation on previous admission at [facility] a month ago.Currently in sinus rhythm with premature atrial complexes. Change Norvasc to Lopressor 25 bid. 2. HTN. Change Norvasc to Lopressor 3. Renal failure. 4. Dysphagia, status post percutaneous endoscopic gastrostomy placement. 5. Dementia. 6. Severe anemia. Anemia could be due to his renal failure. JUDE RN at bedside Subjective Subjective Now off tele. Comfortable in NAD.No events overnight. Objective Last 24 Hour Vital Signs Date Time Temp Pulse Resp B/P Pulse Ox O2 Delivery O2 Flow Rate FiO2 10/06/16 08:35 65 127/58 10/06/16 08:07 97.5 65 18 127/58 96 Room Air 10/06/16 06:18 98.8 80 20 131/54 97 Room Air 10/06/16 05:45 163/87 10/06/16 04:45 172/75 10/06/16 04:00 98.8 80 20 131/54 97 Room Air 10/06/16 00:00 97.3 66 18 172/75 96 Nasal Cannula 2.0 28 10/05/16 21:34 151/83 10/05/16 20:16 Nasal Cannula 2.0 28 10/05/16 20:15 67 18 Nasal Cannula 2.0 28 10/05/16 20:15 97 Nasal Cannula 2.0 28 10/05/16 20:00 98.9 71 20 151/83 96 Room Air 10/05/16 16:00 62 10/05/16 15:45 99.0 70 20 143/61 97 Nasal Cannula 2.0 10/05/16 15:05 78 20 99 Nasal Cannula 3.0 32 10/05/16 14:56 32 10/05/16 14:56 75 18 93 Nasal Cannula 3.0 36 10/05/16 13:20 143/57 10/05/16 12:00 61 10/05/16 11:30 98.9 62 19 143/57 95 Room Air Intake and Output 10/05/16 10/06/16 19:00 07:00 Intake Total 2636.667 ml 2125 ml Output Total 1600 ml 2000 ml Balance 1036.667 ml 125 ml Free Water 700 ml 1050 ml IV Total 1096.667 ml 375 ml Tube Feeding 840 ml 700 ml Output Urine Total 1600 ml 2000 ml # Voids 3 # Bowel Movements 1 Objective HEAD AND NECK: No JVD. LUNGS: Coarse rhonchi. CARDIOVASCULAR: Regular S1 and S2 with no gallop. ABDOMEN: Status post G-tube. EXTREMITIES: There is 1+ pitting edema. RAKESH ALEXANDER Oct 06, 2016 09:42
--- NOTE | 2016-10-06 14:43 | General Progress Note ---
Assessment/Plan Assessment/Plan # Anemia secondary to chronic disease GI service is on the case --> hgb goal >8, agree to transfuse --> work up shows e/o chronic disease # Anemia secondary to kidney disease - epogen as needed # RLE DVT hx however has recurrent GI bleed therefore no coumadin or lovenox --> have attempted several times at anticoagulating and has bleed each time # MARCO A on CKD, baseline Cr is 1.5 # Hx of leukocytosis secondary to infection/stress-> from before resolved # Hx thrombocytopenia secondary to infection likely-> from before resolved # Distal common bile duct stone with moderate biliary ductal dilatation s/p sphincterotomy and stone removal and stent placement # Hypertension # Hypothyroidism # Altered mental status # Dehydration. # s/p TURP # Bilateral hydroureter/hydronephrosis Subjective Constitutional: Reports: no symptoms HEENT: Reports: no symptoms Cardiovascular: Reports: no symptoms Respiratory: Reports: no symptoms Gastrointestinal/Abdominal: Reports: no symptoms Genitourinary: Reports: no symptoms Neurologic/Psychiatric: Reports: no symptoms Endocrine: Reports: no symptoms Hematologic/Lymphatic: Reports: anemia Allergies: Coded Allergies: No Known Allergies (Unverified , 04/13/15) Subjective comfortable Objective Last 24 Hour Vital Signs Date Time Temp Pulse Resp B/P Pulse Ox O2 Delivery O2 Flow Rate FiO2 10/06/16 14:12 140/70 10/06/16 11:47 97.7 89 20 140/70 95 Room Air 10/06/16 09:20 94 Room Air 10/06/16 09:20 Room Air 10/06/16 09:20 61 18 Nasal Cannula 2.0 10/06/16 08:35 65 127/58 10/06/16 08:07 97.5 65 18 127/58 96 Room Air 10/06/16 06:18 98.8 80 20 131/54 97 Room Air 10/06/16 05:45 163/87 10/06/16 04:45 172/75 10/06/16 04:00 98.8 80 20 131/54 97 Room Air 10/06/16 00:00 97.3 66 18 172/75 96 Nasal Cannula 2.0 10/05/16 21:34 151/83 10/05/16 20:16 Nasal Cannula 2.0 10/05/16 20:15 67 18 Nasal Cannula 2.0 17 20:15 97 Nasal Cannula 2.0 28 10/05/16 20:00 98.9 71 20 151/83 96 Room Air 10/05/16 16:00 62 10/05/16 15:45 99.0 70 20 143/61 97 Nasal Cannula 2.0 10/05/16 15:05 78 20 99 Nasal Cannula 3.0 32 10/05/16 14:56 32 10/05/16 14:56 75 18 93 Nasal Cannula 3.0 36 Intake and Output 10/05/16 10/06/16 19:00 07:00 Intake Total 2636.667 ml 2125 ml Output Total 1600 ml 2000 ml Balance 1036.667 ml 125 ml Free Water 700 ml 1050 ml IV Total 1096.667 ml 375 ml Tube Feeding 840 ml 700 ml Output Urine Total 1600 ml 2000 ml # Voids 3 # Bowel Movements 1 Height (Feet): 5 Height (Inches): 11.00 Weight (Pounds): 175 General Appearance: no apparent distress EENT: normal ENT inspection Neck: supple Cardiovascular: normal rate Extremities: non-tender Edema: no edema noted Pedal (L), no edema noted Pedal (R) 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
--- NOTE | 2016-10-06 16:29 | Consultation ---
History of Present Illness General Date patient seen: Oct 06, 2016 Chief Complaint: Fever Present Illness HPI 85-year-old male with hx of Parkinson, Dementia, COPD, long-term resident, with Gtube was brought in by EMS a few days ago after increased fever and productive cough. He was febrile with 101 temperature. Chest x-ray showed infiltrate. bilaterally, He was started on broad spectrum antibiotics. there are no sputum culture and sensitivity available. Pt became afebrile on current abx. there is no repeat cxr on file since admission. Allergies: Coded Allergies: No Known Allergies (Unverified , 04/13/15) Medication History Scheduled Amlodipine Besylate* (Amlodipine Besylate*), 5 MG GT TWICE A DAY, (Reported) Docusate Sodium* (Docusate Sodium*), 100 MG GT DAILY, (Reported) Ferrous Sulfate* (Ferrous Sulfate*), 1 TAB GT DAILY, (Reported) Finasteride* (Proscar*), 5 MG GT DAILY, (Reported) Hydralazine Hcl* (Hydralazine Hcl*), 50 MG GT BID, (Reported) Levetiracetam* (Levetiracetam*), 500 MG GT EVERY 12 HOURS, (Reported) Levothyroxine Sodium* (Levothyroxine Sodium*), 25 MCG PEG DAILY, (Reported) Tamsulosin Hcl (Tamsulosin Hcl*), 0.4 MG GT BEDTIME, (Reported) [Cefepime], 2 GM IM DAILY, (Reported) Scheduled PRN Lorazepam* (Lorazepam*), 1 MG GT Q8HR PRN for For Anxiety, (Reported) Discontinued Medications Acetaminophen (Acetaminophen), 650 MG ORAL Q4HR PRN for Prn Headache/Temp > 101, (Reported) Discontinued Reason: Pt stopped taking med Acetaminophen (Tylenol), 325 MG ORAL Q4HR PRN for Prn Headache/Temp > 101, ( Reported) Discontinued Reason: Pt stopped taking med Allopurinol* (Allopurinol*), 100 MG ORAL DAILY, (Reported) Discontinued Reason: Pt stopped taking med Ascorbic Acid* (Ascorbic Acid*), 500 MG ORAL DAILY, (Reported) Discontinued Reason: Pt stopped taking med Bethanechol Chl* (Bethanechol Chloride*), 25 MG ORAL THREE TIMES A DAY, ( Reported) Discontinued Reason: Pt stopped taking med Cranberry Fruit Concentrate (Cranberry), 450 MG PO DAILY, (Reported) Discontinued Reason: Pt stopped taking med Diphenhydramine HCl (Diphenhydramine HCl), 50 MG ORAL Q6H PRN for Itching, ( Reported) Discontinued Reason: Pt stopped taking med Divalproex Sodium* (Depakote*), 125 MG PO BID, (Reported) Discontinued Reason: Pt stopped taking med Docusate Sodium (Docusate Sodium), 250 MG ORAL TWICE A DAY, (Reported) Discontinued Reason: Pt stopped taking med Donepezil Hcl* (Donepezil Hcl*), 10 MG ORAL DAILY, (Reported) Discontinued Reason: Pt stopped taking med Furosemide* (Lasix*), 40 MG ORAL DAILY, (Reported) Discontinued Reason: Pt stopped taking med Ipratropium/Albuterol Sulfate (Iprat-Albut 0.5-3(2.5) Mg/3 Ml), 3 ML IH QID PRN for Shortness of Breath, (Reported) Discontinued Reason: Pt stopped taking med Iron,Carbonyl (Feosol), 325 MG PO BID, (Reported) Discontinued Reason: Pt stopped taking med Losartan Potassium* (Cozaar*), 100 MG ORAL DAILY, (Reported) Discontinued Reason: Pt stopped taking med Losartan Potassium* (Losartan Potassium*), 50 MG ORAL DAILY, (Reported) Discontinued Reason: Pt stopped taking med Memantine Hcl* (Namenda*), 10 MG ORAL DAILY, (Reported) Discontinued Reason: Pt stopped taking med Multivitamin (Multi Vitamin Daily), 1 TAB ORAL DAILY, (Reported) Discontinued Reason: Pt stopped taking med Potassium (Potassium), 40 MEQ PO DAILY, (Reported) Discontinued Reason: Pt stopped taking med Sertraline Hcl* (Zoloft*), 50 MG ORAL DAILY, (Reported) Discontinued Reason: Pt stopped taking med Simvastatin (Zocor), 20 MG ORAL BEDTIME, (Reported) Discontinued Reason: Pt stopped taking med Valproic Acid (Depakene), 250 MG ORAL DAILY, (Reported) Discontinued Reason: Pt stopped taking med Warfarin Sod* (Coumadin*), 3 MG ORAL QPM, (Reported) Discontinued Reason: Pt stopped taking med Zinc Sulfate (Zinc Sulfate*), 220 MG ORAL DAILY, (Reported) Discontinued Reason: Pt stopped taking med Patient History Healthcare decision maker Resuscitation status Advanced Directive on File Past Medical/Surgical History Past Medical/Surgical History: (1) HCAP (healthcare-associated pneumonia) (2) Elevated CEA (3) Irregular heart rate (4) Elevated INR (5) Feeding by G-tube (6) CVA (cerebral vascular accident) Review of Systems All Other Systems: negative except mentioned in HPI Physical Exam General Appearance: WD/WN Lines, tubes and drains: peripheral, central line, gtube HEENT: normocephalic, atraumatic Neck: non-tender, normal alignment Respiratory/Chest: chest wall non-tender, rhonchi - bilaterally Breasts: no masses Cardiovascular/Chest: normal peripheral pulses, normal rate Abdomen: normal bowel sounds, non tender Genitourinary/Rectal: normal genital exam, normal rectal exam Extremities: normal range of motion, non-tender 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 Lymphatic: anterior cervical Last 24 Hour Vital Signs Date Time Temp Pulse Resp B/P Pulse Ox O2 Delivery O2 Flow Rate FiO2 10/06/16 15:54 97.5 61 22 162/79 94 Nasal Cannula 2.0 10/06/16 15:43 162/79 10/06/16 14:12 140/70 10/06/16 11:47 97.7 89 20 140/70 95 Room Air 10/06/16 09:20 94 Room Air 10/06/16 09:20 Room Air 10/06/16 09:20 61 18 Nasal Cannula 2.0 10/06/16 08:35 65 127/58 10/06/16 08:07 97.5 65 18 127/58 96 Room Air 10/06/16 06:18 98.8 80 20 131/54 97 Room Air 10/06/16 05:45 163/87 10/06/16 04:45 172/75 10/06/16 04:00 98.8 80 20 131/54 97 Room Air 10/06/16 00:00 97.3 66 18 172/75 96 Nasal Cannula 2.0 10/05/16 21:34 151/83 10/05/16 20:16 Nasal Cannula 2.0 10/05/16 20:15 67 18 Nasal Cannula 2.0 10/05/16 20:15 97 Nasal Cannula 2.0 10/05/16 20:00 98.9 71 20 151/83 96 Room Air Intake and Output 10/05/16 10/06/16 19:00 07:00 Intake Total 2636.667 ml 2125 ml Output Total 1600 ml 2000 ml Balance 1036.667 ml 125 ml Free Water 700 ml 1050 ml IV Total 1096.667 ml 375 ml Tube Feeding 840 ml 700 ml Output Urine Total 1600 ml 2000 ml # Voids 3 # Bowel Movements 1 Height (Feet): 5 Height (Inches): 11.00 Weight (Pounds): 175 Medications Current Medications Medications (Trade) Dose Ordered Sig/Marci Route PRN Reason Start Time Stop Time Status Last Admin Dose Admin Acetaminophen (Tylenol) 325 mg Q4H PRN ORAL Headache/Temp > 101 10/05/16 21:00 11/04/16 20:59 Albuterol/ Ipratropium (DuoNeb 0.5-3(2.5)mg/3ml) 3 ml Q6H PRN HHN Shortness of Breath 10/05/16 21:00 10/10/16 20:59 Allopurinol (Zyloprim) 100 mg DAILY GT 10/06/16 09:00 11/05/16 08:59 10/06/16 08:31 Ascorbic Acid (Vitamin C) 500 mg DAILY GT 10/06/16 09:00 11/05/16 08:59 10/06/16 08:32 Cefepime HCl/ Dextrose (Maxipime/D5W) 55 ml @ 110 mls/hr Q24H IVPB 10/06/16 18:00 10/13/16 17:59 Clonidine HCl (Catapres) 0.1 mg Q4H PRN GT SBP > 160 10/05/16 21:00 11/04/16 20:59 10/06/16 15:43 Docusate Sodium (Colace) 250 mg BID GT 10/06/16 09:00 11/05/16 08:59 10/06/16 08:30 Donepezil HCl (Aricept) 10 mg QHS GT 10/05/16 21:00 11/04/16 20:59 10/05/16 21:33 Epoetin Buddy (Procrit (for non ESRD use)) 10,000 units MON-WED-MON SUBQ 10/05/16 21:30 11/04/16 21:29 10/05/16 21:33 Ferrous Sulfate (Feosol) 300 mg DAILY GT 10/06/16 09:00 11/05/16 08:59 10/06/16 08:30 Finasteride (Proscar) 5 mg DAILY GT 10/06/16 09:00 11/05/16 08:59 10/06/16 08:31 Heparin Sodium (Porcine) (Heparin 5000 units/ml) 5,000 units EVERY 12 HOURS SUBQ 10/05/16 21:00 11/04/16 20:59 Hydralazine HCl (Apresoline) 25 mg Q8HR GT 10/05/16 22:00 11/04/16 21:59 10/06/16 14:12 Levetiracetam (Keppra) 500 mg Q12HR GT 10/05/16 21:00 11/04/16 20:59 10/06/16 08:31 Levothyroxine Sodium (Synthroid) 25 mcg ACBREAKFAST GT 10/06/16 06:30 11/05/16 06:29 10/06/16 05:44 Lorazepam (Ativan) 0.5 mg DAILYPRN PRN GT ANXIETY 10/05/16 21:00 10/12/16 20:59 Memantine (Namenda) 10 mg DAILY GT 10/06/16 09:00 11/05/16 08:59 10/06/16 08:32 Metoprolol Tartrate (Lopressor) 12.5 mg Q12HR GT 10/06/16 21:00 11/05/16 20:59 Multivitamins (Multivitamins W/ Minerals 15ml Liquid) 15 ml DAILY GT 10/06/16 09:00 11/05/16 08:59 10/06/16 08:30 Ondansetron HCl (Zofran) 4 mg Q6H PRN IVP Nausea & Vomiting 10/05/16 21:00 11/04/16 20:59 Sertraline HCl (Zoloft) 50 mg DAILY GT 10/06/16 09:00 11/05/16 08:59 10/06/16 08:32 Tamsulosin HCl (Flomax) 0.4 mg Q12HR GT 10/05/16 21:00 11/04/16 20:59 10/06/16 08:32 Vancomycin HCl (Vanco rx to dose) 1 ea DAILY PRN MISC Per rx protocol 10/05/16 21:00 11/04/16 20:59 Zinc Sulfate (Zinc Sulfate) 220 mg DAILY GT 10/06/16 09:00 11/05/16 08:59 10/06/16 08:32 Assessment/Plan Problem List: (1) Sepsis ICD Codes: A41.9 - Sepsis, unspecified organism SNOMED: 27781007 (2) Pneumonia ICD Codes: J18.9 - Pneumonia, unspecified organism SNOMED: 149779543 (3) Feeding by G-tube ICD Codes: Z93.1 - Gastrostomy status SNOMED: 510459906, 281775132 (4) CVA (cerebral vascular accident) ICD Codes: I63.9 - Cerebral infarction, unspecified SNOMED: 215143131 Assessment/Plan continue current regimen check sputum cxr today aspiration precaution dvt prophylaxis JOSIE FLOYD Oct 06, 2016 16:29
--- NOTE | 2016-10-06 16:48 | Infectious Diseases Prog Note ---
Assessment/Plan Problems: (1) HCAP (healthcare-associated pneumonia) Assessment & Plan: on cefepime and vancomycin empirically , sputum culture showed normal respiratory hany. will treat for 10 days (2) Fever Assessment & Plan: improved , due to the above, continue wide spectrum antibiotics, and tylenol (3) Sepsis Assessment & Plan: due to the above, blood culture is negative , continue wide spectrum antibiotics (4) MRSA nasal colonization Assessment & Plan: will give bactroban for 5 days (5) Colonization with VRE (vancomycin-resistant enterococcus) Assessment & Plan: keep in contact isolation Subjective ROS Limited/Unobtainable: Yes Allergies: Coded Allergies: No Known Allergies (Unverified , 04/13/15) Subjective he was resting in bed, had mild wheezing, but not short of breath , comfortable , nonverbal, doesn't follow commands . Objective Vital Signs Last 24 Hour Vital Signs Date Time Temp Pulse Resp B/P Pulse Ox O2 Delivery O2 Flow Rate FiO2 10/06/16 15:54 97.5 61 22 162/79 94 Nasal Cannula 2.0 10/06/16 15:43 162/79 10/06/16 14:12 140/70 10/06/16 11:47 97.7 89 20 140/70 95 Room Air 10/06/16 09:20 94 Room Air 10/06/16 09:20 Room Air 10/06/16 09:20 61 18 Nasal Cannula 2.0 10/06/16 08:35 65 127/58 10/06/16 08:07 97.5 65 18 127/58 96 Room Air 10/06/16 06:18 98.8 80 20 131/54 97 Room Air 10/06/16 05:45 163/87 10/06/16 04:45 172/75 10/06/16 04:00 98.8 80 20 131/54 97 Room Air 10/06/16 00:00 97.3 66 18 172/75 96 Nasal Cannula 2.0 10/05/16 21:34 151/83 10/05/16 20:16 Nasal Cannula 2.0 10/05/16 20:15 67 18 Nasal Cannula 2.0 10/05/16 20:15 97 Nasal Cannula 2.0 10/05/16 20:00 98.9 71 20 151/83 96 Room Air Height (Feet): 5 Height (Inches): 11.00 Weight (Pounds): 175 General Appearance: WD/WN, no acute distress HEENT: normocephalic, atraumatic, anicteric, mucous membranes moist Respiratory/Chest: chest wall non-tender, no respiratory distress, no accessory muscle use, decreased breath sounds, crackles/rales Cardiovascular: normal peripheral pulses, normal rate, regular rhythm, no gallop/murmur, no JVD Abdomen: normal bowel sounds, soft, non tender, no organomegaly, non distended , no mass, no scars Extremities: no cyanosis, no edema Skin: no rash, no lesions Current Medications Medications (Trade) Dose Ordered Sig/Marci Route PRN Reason Start Time Stop Time Status Last Admin Dose Admin Acetaminophen (Tylenol) 325 mg Q4H PRN ORAL Headache/Temp > 101 10/05/16 21:00 11/04/16 20:59 Albuterol/ Ipratropium (DuoNeb 0.5-3(2.5)mg/3ml) 3 ml Q6H PRN HHN Shortness of Breath 10/05/16 21:00 10/10/16 20:59 Allopurinol (Zyloprim) 100 mg DAILY GT 10/06/16 09:00 11/05/16 08:59 10/06/16 08:31 Ascorbic Acid (Vitamin C) 500 mg DAILY GT 10/06/16 09:00 11/05/16 08:59 10/06/16 08:32 Cefepime HCl/ Dextrose (Maxipime/D5W) 55 ml @ 110 mls/hr Q24H IVPB 10/06/16 18:00 10/13/16 17:59 Clonidine HCl (Catapres) 0.1 mg Q4H PRN GT SBP > 160 10/05/16 21:00 11/04/16 20:59 10/06/16 15:43 Docusate Sodium (Colace) 250 mg BID GT 10/06/16 09:00 11/05/16 08:59 10/06/16 08:30 Donepezil HCl (Aricept) 10 mg QHS GT 10/05/16 21:00 11/04/16 20:59 10/05/16 21:33 Epoetin Buddy (Procrit (for non ESRD use)) 10,000 units MON-MON-MON SUBQ 10/05/16 21:30 11/04/16 21:29 10/05/16 21:33 Ferrous Sulfate (Feosol) 300 mg DAILY GT 10/06/16 09:00 11/05/16 08:59 10/06/16 08:30 Finasteride (Proscar) 5 mg DAILY GT 10/06/16 09:00 11/05/16 08:59 10/06/16 08:31 Heparin Sodium (Porcine) (Heparin 5000 units/ml) 5,000 units EVERY 12 HOURS SUBQ 10/05/16 21:00 11/04/16 20:59 Hydralazine HCl (Apresoline) 25 mg Q8HR GT 10/05/16 22:00 11/04/16 21:59 10/06/16 14:12 Levetiracetam (Keppra) 500 mg Q12HR GT 10/05/16 21:00 11/04/16 20:59 10/06/16 08:31 Levothyroxine Sodium (Synthroid) 25 mcg ACBREAKFAST GT 10/06/16 06:30 11/05/16 06:29 10/06/16 05:44 Lorazepam (Ativan) 0.5 mg DAILYPRN PRN GT ANXIETY 10/05/16 21:00 10/12/16 20:59 Memantine (Namenda) 10 mg DAILY GT 10/06/16 09:00 11/05/16 08:59 10/06/16 08:32 Metoprolol Tartrate (Lopressor) 12.5 mg Q12HR GT 10/06/16 21:00 11/05/16 20:59 Multivitamins (Multivitamins W/ Minerals 15ml Liquid) 15 ml DAILY GT 10/06/16 09:00 11/05/16 08:59 10/06/16 08:30 Ondansetron HCl (Zofran) 4 mg Q6H PRN IVP Nausea & Vomiting 10/05/16 21:00 11/04/16 20:59 Sertraline HCl (Zoloft) 50 mg DAILY GT 10/06/16 09:00 11/05/16 08:59 10/06/16 08:32 Tamsulosin HCl (Flomax) 0.4 mg Q12HR GT 10/05/16 21:00 11/04/16 20:59 10/06/16 08:32 Vancomycin HCl (Vanco rx to dose) 1 ea DAILY PRN MISC Per rx protocol 10/05/16 21:00 11/04/16 20:59 Zinc Sulfate (Zinc Sulfate) 220 mg DAILY GT 10/06/16 09:00 11/05/16 08:59 10/06/16 08:32 Robles Mari M.D. Oct 06, 2016 16:48
[2016-10-06] MEDS ORDERED: D5 1/2NS 1000ml IV ONE (16:58)
[2016-10-06] MEDS ORDERED: Tubing IV Secondary IV ONE (16:58)
[2016-10-06] MEDS ORDERED: Cefepime HCl 1 GM in D5W 55 ML IVPB SCH (18:00)
[2016-10-06] MEDS ORDERED: Vancomycin 1gm in D5W 275ml IVPB SCH (21:00)
[2016-10-06] MEDS: Metoprolol Tartrate 12.5mg TAB GT SCH (21:34)
[2016-10-06] MEDS: Donepezil 10mg tab GT SCH (21:35)
--- NOTE | 2016-10-06 22:21 | General Progress Note ---
Assessment/Plan Problem List: (1) Gastritis ICD Codes: K29.70 - Gastritis, unspecified, without bleeding SNOMED: 0971289 (2) Hypothyroidism ICD Codes: E03.9 - Hypothyroidism, unspecified SNOMED: 38907632 (3) Hypoalbuminemia ICD Codes: E88.09 - Other disorders of plasma-protein metabolism, not elsewhere classified SNOMED: 770636332 (4) Acute renal failure ICD Codes: N17.9 - Acute kidney failure, unspecified SNOMED: 92435598 (5) Sepsis ICD Codes: A41.9 - Sepsis, unspecified organism SNOMED: 27819643 (6) Respiratory insufficiency ICD Codes: R06.89 - Other abnormalities of breathing SNOMED: 101801171 (7) Anemia ICD Codes: D64.9 - Anemia, unspecified SNOMED: 350655190 (8) Atrial fibrillation ICD Codes: I48.91 - Unspecified atrial fibrillation SNOMED: 84945742 Status: progressing Assessment/Plan pna improving poor historian reviewed chart and labs dc in am abx per id vitals stable no bleeding Subjective ROS Limited/Unobtainable: Yes Allergies: Coded Allergies: No Known Allergies (Unverified , 04/13/15) Objective Last 24 Hour Vital Signs Date Time Temp Pulse Resp B/P Pulse Ox O2 Delivery O2 Flow Rate FiO2 10/06/16 21:34 66 182/99 10/06/16 21:34 182/99 10/06/16 21:17 Nasal Cannula 2.0 28 10/06/16 21:16 96 Nasal Cannula 2.0 28 10/06/16 21:16 62 18 Nasal Cannula 2.0 28 10/06/16 15:54 97.5 61 22 162/79 94 Nasal Cannula 2.0 10/06/16 15:43 162/79 10/06/16 14:12 140/70 10/06/16 11:47 97.7 89 20 140/70 95 Room Air 10/06/16 09:20 94 Room Air 10/06/16 09:20 Room Air 10/06/16 09:20 61 18 Nasal Cannula 2.0 28 10/06/16 08:35 65 127/58 10/06/16 08:07 97.5 65 18 127/58 96 Room Air 10/06/16 06:18 98.8 80 20 131/54 97 Room Air 10/06/16 05:45 163/87 10/06/16 04:45 172/75 10/06/16 04:00 98.8 80 20 131/54 97 Room Air 10/06/16 00:00 97.3 66 18 172/75 96 Nasal Cannula 2.0 28 Intake and Output 10/05/16 10/06/16 19:00 07:00 Intake Total 2636.667 ml 2125 ml Output Total 1600 ml 2000 ml Balance 1036.667 ml 125 ml Free Water 700 ml 1050 ml IV Total 1096.667 ml 375 ml Tube Feeding 840 ml 700 ml Output Urine Total 1600 ml 2000 ml # Voids 3 # Bowel Movements 1 Laboratory Tests 10/06/16 18:04: Random Vancomycin Level 11.0 Height (Feet): 5 Height (Inches): 11.00 Weight (Pounds): 175 Respiratory/Chest: lungs clear Abdomen: soft Seth eLe MD Oct 06, 2016 22:21
[2016-10-07] VITALS: BP 151/98
[2016-10-07 04:00] VITALS: BP 140/80
[2016-10-07] MEDS: HydrALAZINE 25mg tab GT SCH ×2 (06:04→13:13)
[2016-10-07] MEDS: Levothyroxine 25mcg tab GT SCH (06:04)
[2016-10-07 07:30] LABS: BASOPHILS % (AUTO) 0.3 % (0.0-2.0); EOSINOPHILS % (AUTO) 2.4 % (0.0-3.0); LYMPHOCYTES % (AUTO) 9.2 % (20.0-45.0); MEAN CORPUSCULAR HEMOGLOBIN 31.2 PG (27.0-31.0); MEAN CORPUSCULAR HGB CONC 31.6 G/DL (32.0-36.0); MEAN CORPUSCULAR VOLUME 99 FL (80-99); MONOCYTES % (AUTO) 10.7 % (1.0-10.0); NEUTROPHILS % (AUTO) 77.4 % (45.0-75.0); PLATELET COUNT 139 K/UL (150-450); RED BLOOD COUNT 2.89 M/UL (4.70-6.10); WHITE BLOOD COUNT 5.8 K/UL (4.8-10.8)
[2016-10-07 07:44] LABS: ALANINE AMINOTRANSFERASE 21 U/L (3-41); ALBUMIN/GLOBULIN RATIO 0.9 (1.0-2.7); ANION GAP 11 (5-15); ASPARTATE AMINO TRANSFERASE 24 U/L (5-40); CALCIUM 9.3 mg/dL (8.6-10.2); CARBON DIOXIDE 26 mEQ/L (20-30); CHLORIDE 105 mEQ/L (98-107); CREATININE 1.6 mg/dL (0.7-1.2); HEMOLYSIS 2; PHOSPHORUS 2.9 mg/dL (2.5-4.8); POTASSIUM 3.9 mEQ/L (3.4-4.9); SODIUM 142 mEQ/L (135-145); TOTAL PROTEIN 6.9 g/dL (6.6-8.7); URIC ACID 5.2 mg/dL (3.0-7.5)
[2016-10-07 08:00] VITALS: BP 179/81
[2016-10-07] MEDS: Sertraline 50mg tab GT SCH (08:56)
[2016-10-07] MEDS: Memantine 10mg tab GT SCH (08:56)
[2016-10-07] MEDS: Zinc Sulfate 220mg cap GT SCH (08:56)
[2016-10-07] MEDS: Ascorbic Acid 500mg tab GT SCH (08:56)
[2016-10-07] MEDS: Multivitamins W/Minerals 15 ML UDC GT SCH (09:00)
[2016-10-07] MEDS: Heparin 5000 units/ml inj SUBQ SCH (09:00)
[2016-10-07] MEDS: levETIRAcetam 500mg/5ml Liquid GT SCH (09:00)
[2016-10-07] MEDS: Tamsulosin 0.4mg cap GT SCH (09:01)
[2016-10-07] MEDS: Allopurinol 100mg Tab GT SCH (09:01)
[2016-10-07] MEDS: Ferrous Sulfate 300 MG/5 ML UDC GT SCH (09:01)
[2016-10-07] MEDS: Metoprolol Tartrate 12.5mg TAB GT SCH (09:01)
[2016-10-07] MEDS: Docusate 100mg/10ml Liq GT SCH (09:01)
[2016-10-07] MEDS ORDERED: NS 550ML IV ONE (09:03)
[2016-10-07] MEDS ORDERED: Tubing IV Secondary IV ONE ×2 (09:03→10:35)
--- NOTE | 2016-10-07 09:36 | General Progress Note ---
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 hold transfusion?? DC planning?? Subjective ROS Limited/Unobtainable: No Constitutional: Reports: malaise Allergies: Coded Allergies: No Known Allergies (Unverified , 04/13/15) Objective Last 24 Hour Vital Signs Date Time Temp Pulse Resp B/P Pulse Ox O2 Delivery O2 Flow Rate FiO2 10/07/16 09:01 70 168/77 10/07/16 09:01 168/77 10/07/16 08:54 Nasal Cannula 2.0 10/07/16 08:52 94 Nasal Cannula 2.0 10/07/16 08:52 72 16 Nasal Cannula 2.0 10/07/16 08:00 98.1 82 20 179/81 93 Nasal Cannula 2.0 10/07/16 06:04 140/80 10/07/16 04:00 97.7 72 20 140/80 95 Nasal Cannula 2.0 10/07/16 00:00 97.9 73 20 151/98 91 Nasal Cannula 2.0 10/06/16 21:34 66 182/99 10/06/16 21:34 182/99 10/06/16 21:17 Nasal Cannula 2.0 28 10/06/16 21:16 96 Nasal Cannula 2.0 28 10/06/16 21:16 62 18 Nasal Cannula 2.0 28 10/06/16 20:00 97.7 66 20 182/99 96 Nasal Cannula 2.0 10/06/16 15:54 97.5 61 22 162/79 94 Nasal Cannula 2.0 10/06/16 15:43 162/79 10/06/16 14:12 140/70 10/06/16 11:47 97.7 89 20 140/70 95 Room Air Intake and Output 10/06/16 10/07/16 19:00 07:00 Intake Total 485 ml 1907.416 ml Output Total 2450 ml 800 ml Balance -1965 ml 1107.416 ml Free Water 60 ml 700 ml IV Total 355 ml 367.416 ml Tube Feeding 70 ml 840 ml Output Urine Total 2450 ml 800 ml # Voids 3 # Bowel Movements 2 2 Laboratory Tests 10/06/16 18:04: Random Vancomycin Level 11.0 10/07/16 06:20: White Blood Count 5.8, Red Blood Count 2.89L, Hemoglobin 9.0L, Hematocrit 28.5L , Mean Corpuscular Volume 99, Mean Corpuscular Hemoglobin 31.2H, Mean Corpuscular Hemoglobin Concent 31.6L, Red Cell Distribution Width 14.0, Platelet Count 139L, Mean Platelet Volume 8.0, Neutrophils (%) (Auto) 77.4H, Lymphocytes (%) (Auto) 9.2L, Monocytes (%) (Auto) 10.7H, Eosinophils (%) (Auto) 2.4, Basophils (%) (Auto) 0.3, Sodium Level 142, Potassium Level 3.9, Chloride Level 105, Carbon Dioxide Level 26, Anion Gap 11, Blood Urea Nitrogen 39H, Creatinine 1.6H, Estimat Glomerular Filtration Rate , Glucose Level 114H, Uric Acid 5.2, Calcium Level 9.3, Phosphorus Level 2.9, Magnesium Level 2.0, Total Bilirubin 0.3, Aspartate Amino Transf (AST/SGOT) 24, Alanine Aminotransferase ( ALT/SGPT) 21, Alkaline Phosphatase 81, Total Protein 6.9, Albumin 3.3L, Globulin 3.6, Albumin/Globulin Ratio 0.9L Height (Feet): 5 Height (Inches): 11.00 Weight (Pounds): 175 General Appearance: no apparent distress Objective no change in PE TAWANNA ONEIL Oct 07, 2016 09:36
[2016-10-07] MEDS ORDERED: D5 1/2NS 1000ml IV ONE (10:35)
--- NOTE | 2016-10-07 11:09 | General Progress Note ---
Assessment/Plan Assessment/Plan # Anemia secondary to chronic disease GI service is on the case --> monitor counts, currrently stable --> work up shows e/o chronic disease # Anemia secondary to kidney disease - epogen as needed # RLE DVT hx however has recurrent GI bleed therefore no coumadin or lovenox --> have attempted several times at anticoagulating and has bleed each time # MARCO A on CKD, baseline Cr is 1.5 # Hx of leukocytosis secondary to infection/stress-> from before resolved # Hx thrombocytopenia secondary to infection likely-> from before resolved # Distal common bile duct stone with moderate biliary ductal dilatation s/p sphincterotomy and stone removal and stent placement # Hypertension # Hypothyroidism # Altered mental status # Dehydration. # s/p TURP # Bilateral hydroureter/hydronephrosis Subjective Constitutional: Reports: no symptoms HEENT: Reports: no symptoms Respiratory: Reports: no symptoms Gastrointestinal/Abdominal: Reports: no symptoms Genitourinary: Reports: no symptoms Neurologic/Psychiatric: Reports: no symptoms Endocrine: Reports: no symptoms Hematologic/Lymphatic: Reports: anemia Allergies: Coded Allergies: No Known Allergies (Unverified , 04/13/15) Subjective tried to contact family for transfusion, but patient is ok to dc to snf without transfusion Objective Last 24 Hour Vital Signs Date Time Temp Pulse Resp B/P Pulse Ox O2 Delivery O2 Flow Rate FiO2 10/07/16 09:43 73 17 95 Room Air 2.0 10/07/16 09:01 70 168/77 10/07/16 09:01 168/77 10/07/16 08:54 Nasal Cannula 2.0 10/07/16 08:52 94 Nasal Cannula 2.0 10/07/16 08:52 72 16 Nasal Cannula 2.0 10/07/16 08:00 98.1 82 20 179/81 93 Nasal Cannula 2.0 10/07/16 06:04 140/80 10/07/16 04:00 97.7 72 20 140/80 95 Nasal Cannula 2.0 10/07/16 00:00 97.9 73 20 151/98 91 Nasal Cannula 2.0 10/06/16 21:34 66 182/99 10/06/16 21:34 182/99 10/06/16 21:17 Nasal Cannula 2.0 28 10/06/16 21:16 96 Nasal Cannula 2.0 28 10/06/16 21:16 62 18 Nasal Cannula 2.0 28 10/06/16 20:00 97.7 66 20 182/99 96 Nasal Cannula 2.0 10/06/16 15:54 97.5 61 22 162/79 94 Nasal Cannula 2.0 10/06/16 15:43 162/79 10/06/16 14:12 140/70 10/06/16 11:47 97.7 89 20 140/70 95 Room Air Intake and Output 10/06/16 10/07/16 19:00 07:00 Intake Total 485 ml 1907.416 ml Output Total 2450 ml 800 ml Balance -1965 ml 1107.416 ml Free Water 60 ml 700 ml IV Total 355 ml 367.416 ml Tube Feeding 70 ml 840 ml Output Urine Total 2450 ml 800 ml # Voids 3 # Bowel Movements 2 2 Laboratory Tests 10/06/16 18:04: Random Vancomycin Level 11.0 10/07/16 06:20: White Blood Count 5.8, Red Blood Count 2.89L, Hemoglobin 9.0L, Hematocrit 28.5L , Mean Corpuscular Volume 99, Mean Corpuscular Hemoglobin 31.2H, Mean Corpuscular Hemoglobin Concent 31.6L, Red Cell Distribution Width 14.0, Platelet Count 139L, Mean Platelet Volume 8.0, Neutrophils (%) (Auto) 77.4H, Lymphocytes (%) (Auto) 9.2L, Monocytes (%) (Auto) 10.7H, Eosinophils (%) (Auto) 2.4, Basophils (%) (Auto) 0.3, Sodium Level 142, Potassium Level 3.9, Chloride Level 105, Carbon Dioxide Level 26, Anion Gap 11, Blood Urea Nitrogen 39H, Creatinine 1.6H, Estimat Glomerular Filtration Rate , Glucose Level 114H, Uric Acid 5.2, Calcium Level 9.3, Phosphorus Level 2.9, Magnesium Level 2.0, Total Bilirubin 0.3, Aspartate Amino Transf (AST/SGOT) 24, Alanine Aminotransferase ( ALT/SGPT) 21, Alkaline Phosphatase 81, Total Protein 6.9, Albumin 3.3L, Globulin 3.6, Albumin/Globulin Ratio 0.9L Height (Feet): 5 Height (Inches): 11.00 Weight (Pounds): 175 General Appearance: no apparent distress EENT: normal ENT inspection Neck: normal alignment Cardiovascular: normal rate Edema: no edema noted Pedal (L), no edema noted Pedal (R) 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
[2016-10-07] MEDS ORDERED: CEFEPIME-D1 GM/50 ML IVPB (11:14)
[2016-10-07] MEDS ORDERED: BACTROBAN NASAL1 GM NASAL (11:15)
[2016-10-07] MEDS ORDERED: VANCOMYCIN1 GM/2502 IVPB (11:15)
[2016-10-07 11:30] LABS: BASOPHILS % (AUTO) 0.7 % (0.0-2.0); EOSINOPHILS % (AUTO) 1.7 % (0.0-3.0); LYMPHOCYTES % (AUTO) 10.1 % (20.0-45.0); MEAN CORPUSCULAR HEMOGLOBIN 29.9 PG (27.0-31.0); MEAN CORPUSCULAR HGB CONC 30.6 G/DL (32.0-36.0); MEAN CORPUSCULAR VOLUME 97 FL (80-99); MEAN PLATELET VOLUME 7.4 FL (6.5-10.1); MONOCYTES % (AUTO) 11.9 % (1.0-10.0); NEUTROPHILS % (AUTO) 75.6 % (45.0-75.0); PLATELET COUNT 142 K/UL (150-450); RED BLOOD COUNT 2.84 M/UL (4.70-6.10); RED CELL DISTRIBUTION WIDTH 14.1 % (11.6-14.8); WHITE BLOOD COUNT 5.8 K/UL (4.8-10.8)
[2016-10-07 12:00] VITALS: BP 159/84
--- NOTE | 2016-10-07 12:29 | Diagnostic Imaging Report ---
Indication: Dyspnea Comparison: 10/04/16 A single view chest radiograph was obtained. Findings: Central to avascular congestion suspected. The heart is enlarged. Impression: Increasing perihilar opacities likely pulmonary edema. Please correlate clinically.
[2016-10-07 14:30] VITALS: BP 118/77
--- NOTE | 2016-10-07 15:06 | Pulmonology Progress Note ---
Assessment/Plan Problems: (1) Sepsis (2) Pneumonia (3) Feeding by G-tube (4) CVA (cerebral vascular accident) Assessment/Plan improving respiratory treatment check cultures tolerating diet Subjective ROS Limited/Unobtainable: No Allergies: Coded Allergies: No Known Allergies (Unverified , 04/13/15) Objective Last 24 Hour Vital Signs Date Time Temp Pulse Resp B/P Pulse Ox O2 Delivery O2 Flow Rate FiO2 10/07/16 13:13 159/84 10/07/16 12:00 98.0 77 18 159/84 94 Nasal Cannula 2.0 10/07/16 09:43 73 17 95 Room Air 2.0 10/07/16 09:01 70 168/77 10/07/16 09:01 168/77 10/07/16 08:54 Nasal Cannula 2.0 10/07/16 08:52 94 Nasal Cannula 2.0 10/07/16 08:52 72 16 Nasal Cannula 2.0 10/07/16 08:00 98.1 82 20 179/81 93 Nasal Cannula 2.0 10/07/16 06:04 140/80 10/07/16 04:00 97.7 72 20 140/80 95 Nasal Cannula 2.0 10/07/16 00:00 97.9 73 20 151/98 91 Nasal Cannula 2.0 10/06/16 21:34 66 182/99 10/06/16 21:34 182/99 10/06/16 21:17 Nasal Cannula 2.0 28 10/06/16 21:16 96 Nasal Cannula 2.0 28 10/06/16 21:16 62 18 Nasal Cannula 2.0 28 10/06/16 20:00 97.7 66 20 182/99 96 Nasal Cannula 2.0 10/06/16 15:54 97.5 61 22 162/79 94 Nasal Cannula 2.0 10/06/16 15:43 162/79 Intake and Output 10/06/16 10/07/16 19:00 07:00 Intake Total 485 ml 1907.416 ml Output Total 2450 ml 800 ml Balance -1965 ml 1107.416 ml Free Water 60 ml 700 ml IV Total 355 ml 367.416 ml Tube Feeding 70 ml 840 ml Output Urine Total 2450 ml 800 ml # Voids 3 # Bowel Movements 2 2 General Appearance: WD/WN HEENT: normocephalic, atraumatic Respiratory/Chest: chest wall non-tender, lungs clear Cardiovascular: normal peripheral pulses, normal rate Abdomen: soft, non tender Genitourinary: normal external genitalia Extremities: no cyanosis, no clubbing Skin: no rash, no ulcers Laboratory Tests 10/06/16 18:04: Random Vancomycin Level 11.0 10/07/16 06:20: White Blood Count 5.8, Red Blood Count 2.89L, Hemoglobin 9.0L, Hematocrit 28.5L , Mean Corpuscular Volume 99, Mean Corpuscular Hemoglobin 31.2H, Mean Corpuscular Hemoglobin Concent 31.6L, Red Cell Distribution Width 14.0, Platelet Count 139L, Mean Platelet Volume 8.0, Neutrophils (%) (Auto) 77.4H, Lymphocytes (%) (Auto) 9.2L, Monocytes (%) (Auto) 10.7H, Eosinophils (%) (Auto) 2.4, Basophils (%) (Auto) 0.3, Sodium Level 142, Potassium Level 3.9, Chloride Level 105, Carbon Dioxide Level 26, Anion Gap 11, Blood Urea Nitrogen 39H, Creatinine 1.6H, Estimat Glomerular Filtration Rate , Glucose Level 114H, Uric Acid 5.2, Calcium Level 9.3, Phosphorus Level 2.9, Magnesium Level 2.0, Total Bilirubin 0.3, Aspartate Amino Transf (AST/SGOT) 24, Alanine Aminotransferase ( ALT/SGPT) 21, Alkaline Phosphatase 81, Total Protein 6.9, Albumin 3.3L, Globulin 3.6, Albumin/Globulin Ratio 0.9L 10/07/16 11:20: White Blood Count 5.8, Red Blood Count 2.84L, Hemoglobin 8.5L, Hematocrit 27.7L , Mean Corpuscular Volume 97, Mean Corpuscular Hemoglobin 29.9, Mean Corpuscular Hemoglobin Concent 30.6L, Red Cell Distribution Width 14.1, Platelet Count 142L, Mean Platelet Volume 7.4, Neutrophils (%) (Auto) 75.6H, Lymphocytes (%) (Auto) 10.1L, Monocytes (%) (Auto) 11.9H, Eosinophils (%) (Auto ) 1.7, Basophils (%) (Auto) 0.7 Current Medications Medications (Trade) Dose Ordered Sig/Marci Route PRN Reason Start Time Stop Time Status Last Admin Dose Admin Acetaminophen (Tylenol) 325 mg Q4H PRN ORAL Headache/Temp > 101 10/05/16 21:00 11/04/16 20:59 Albuterol/ Ipratropium (DuoNeb 0.5-3(2.5)mg/3ml) 3 ml Q6H PRN HHN Shortness of Breath 10/05/16 21:00 10/10/16 20:59 10/07/16 09:43 Allopurinol (Zyloprim) 100 mg DAILY GT 10/06/16 09:00 11/05/16 08:59 10/07/16 09:01 Ascorbic Acid (Vitamin C) 500 mg DAILY GT 10/06/16 09:00 11/05/16 08:59 10/07/16 08:56 Cefepime HCl/ Dextrose (Maxipime/D5W) 55 ml @ 110 mls/hr Q24H IVPB 10/06/16 18:00 10/13/16 17:59 10/06/16 17:19 Clonidine HCl (Catapres) 0.1 mg Q4H PRN GT SBP > 160 10/05/16 21:00 11/04/16 20:59 10/07/16 09:01 Docusate Sodium (Colace) 250 mg BID GT 10/06/16 09:00 11/05/16 08:59 10/07/16 09:01 Donepezil HCl (Aricept) 10 mg QHS GT 10/05/16 21:00 11/04/16 20:59 10/06/16 21:35 Epoetin Buddy (Procrit (for non ESRD use)) 10,000 units MON-MON-MON SUBQ 10/05/16 21:30 11/04/16 21:29 10/05/16 21:33 Ferrous Sulfate (Feosol) 300 mg DAILY GT 10/06/16 09:00 11/05/16 08:59 10/07/16 09:01 Finasteride (Proscar) 5 mg DAILY GT 10/06/16 09:00 11/05/16 08:59 10/07/16 09:05 Heparin Sodium (Porcine) (Heparin 5000 units/ml) 5,000 units EVERY 12 HOURS SUBQ 10/05/16 21:00 11/04/16 20:59 Hydralazine HCl (Apresoline) 25 mg Q8HR GT 10/05/16 22:00 11/04/16 21:59 10/07/16 13:13 Levetiracetam (Keppra) 500 mg Q12HR GT 10/05/16 21:00 11/04/16 20:59 10/07/16 09:00 Levothyroxine Sodium (Synthroid) 25 mcg ACBREAKFAST GT 10/06/16 06:30 11/05/16 06:29 10/07/16 06:04 Lorazepam (Ativan) 0.5 mg DAILYPRN PRN GT ANXIETY 10/05/16 21:00 10/12/16 20:59 Memantine (Namenda) 10 mg DAILY GT 10/06/16 09:00 11/05/16 08:59 10/07/16 08:56 Metoprolol Tartrate (Lopressor) 12.5 mg Q12HR GT 10/06/16 21:00 11/05/16 20:59 10/07/16 09:01 Multivitamins (Multivitamins W/ Minerals 15ml Liquid) 15 ml DAILY GT 10/06/16 09:00 11/05/16 08:59 10/07/16 09:00 Mupirocin 1 applic 1 applic THREE TIMES A DAY TOPIC 10/06/16 18:00 10/11/16 17:59 10/07/16 13:14 Ondansetron HCl (Zofran) 4 mg Q6H PRN IVP Nausea & Vomiting 10/05/16 21:00 11/04/16 20:59 Sertraline HCl (Zoloft) 50 mg DAILY GT 10/06/16 09:00 11/05/16 08:59 10/07/16 08:56 Tamsulosin HCl (Flomax) 0.4 mg Q12HR GT 10/05/16 21:00 11/04/16 20:59 10/07/16 09:01 Vancomycin HCl (Vanco rx to dose) 1 ea DAILY PRN MISC Per rx protocol 10/05/16 21:00 11/04/16 20:59 Vancomycin HCl/ Dextrose (Vancomycin/D5W) 275 ml @ 183.708 mls/hr Q48H IVPB 10/06/16 21:00 10/11/16 20:59 10/06/16 21:36 Zinc Sulfate (Zinc Sulfate) 220 mg DAILY GT 10/06/16 09:00 11/05/16 08:59 10/07/16 08:56 JOSIE FLOYD Oct 07, 2016 15:06
--- NOTE | 2016-10-07 15:12 | Infectious Diseases Prog Note ---
Assessment/Plan Problems: (1) HCAP (healthcare-associated pneumonia) Assessment & Plan: on cefepime and vancomycin empirically , sputum culture showed normal respiratory hany. will treat for 10 days total (2) Fever Assessment & Plan: improved , due to the above, continue wide spectrum antibiotics, and tylenol (3) Sepsis Assessment & Plan: due to the above, blood culture is negative , continue wide spectrum antibiotics (4) MRSA nasal colonization Assessment & Plan: will give bactroban for 5 days to decolonize (5) Colonization with VRE (vancomycin-resistant enterococcus) Assessment & Plan: keep in contact isolation while in hospital Subjective ROS Limited/Unobtainable: Yes Allergies: Coded Allergies: No Known Allergies (Unverified , 04/13/15) Subjective he was resting in bed, had mild wheezing, but not short of breath , comfortable , nonverbal, doesn't follow commands . Objective Vital Signs Last 24 Hour Vital Signs Date Time Temp Pulse Resp B/P Pulse Ox O2 Delivery O2 Flow Rate FiO2 10/07/16 13:13 159/84 10/07/16 12:00 98.0 77 18 159/84 94 Nasal Cannula 2.0 10/07/16 09:43 73 17 95 Room Air 2.0 10/07/16 09:01 70 168/77 10/07/16 09:01 168/77 10/07/16 08:54 Nasal Cannula 2.0 10/07/16 08:52 94 Nasal Cannula 2.0 10/07/16 08:52 72 16 Nasal Cannula 2.0 10/07/16 08:00 98.1 82 20 179/81 93 Nasal Cannula 2.0 10/07/16 06:04 140/80 10/07/16 04:00 97.7 72 20 140/80 95 Nasal Cannula 2.0 10/07/16 00:00 97.9 73 20 151/98 91 Nasal Cannula 2.0 10/06/16 21:34 66 182/99 10/06/16 21:34 182/99 10/06/16 21:17 Nasal Cannula 2.0 28 10/06/16 21:16 96 Nasal Cannula 2.0 28 10/06/16 21:16 62 18 Nasal Cannula 2.0 28 10/06/16 20:00 97.7 66 20 182/99 96 Nasal Cannula 2.0 10/06/16 15:54 97.5 61 22 162/79 94 Nasal Cannula 2.0 10/06/16 15:43 162/79 Height (Feet): 5 Height (Inches): 11.00 Weight (Pounds): 175 General Appearance: WD/WN, no acute distress HEENT: normocephalic, atraumatic, anicteric, mucous membranes moist, supple, no JVD Respiratory/Chest: chest wall non-tender, lungs clear, normal breath sounds, no respiratory distress, no accessory muscle use Cardiovascular: normal peripheral pulses, normal rate, regular rhythm, no gallop/murmur, no JVD Abdomen: normal bowel sounds, soft, non tender, no organomegaly, non distended , no mass, no scars Extremities: no cyanosis, no clubbing Skin: no rash, no lesions, no ulcers Neurologic/Psychiatric: alert Laboratory Tests Test 10/06/16 18:04 10/07/16 06:20 10/07/16 11:20 Random Vancomycin Level 11.0 ug/mL White Blood Count 5.8 K/UL (4.8-10.8) 5.8 K/UL (4.8-10.8) Red Blood Count 2.89 M/UL (4.70-6.10) L 2.84 M/UL (4.70-6.10) L Hemoglobin 9.0 G/DL (14.2-18.0) L 8.5 G/DL (14.2-18.0) L Hematocrit 28.5 % (42.0-52.0) L 27.7 % (42.0-52.0) L Mean Corpuscular Volume 99 FL (80-99) 97 FL (80-99) Mean Corpuscular Hemoglobin 31.2 PG (27.0-31.0) H 29.9 PG (27.0-31.0) Mean Corpuscular Hemoglobin Concent 31.6 G/DL (32.0-36.0) L 30.6 G/DL (32.0-36.0) L Red Cell Distribution Width 14.0 % (11.6-14.8) 14.1 % (11.6-14.8) Platelet Count 139 K/UL (150-450) L 142 K/UL (150-450) L Mean Platelet Volume 8.0 FL (6.5-10.1) 7.4 FL (6.5-10.1) Neutrophils (%) (Auto) 77.4 % (45.0-75.0) H 75.6 % (45.0-75.0) H Lymphocytes (%) (Auto) 9.2 % (20.0-45.0) L 10.1 % (20.0-45.0) L Monocytes (%) (Auto) 10.7 % (1.0-10.0) H 11.9 % (1.0-10.0) H Eosinophils (%) (Auto) 2.4 % (0.0-3.0) 1.7 % (0.0-3.0) Basophils (%) (Auto) 0.3 % (0.0-2.0) 0.7 % (0.0-2.0) Sodium Level 142 mEQ/L (135-145) Potassium Level 3.9 mEQ/L (3.4-4.9) Chloride Level 105 mEQ/L (98-107) Carbon Dioxide Level 26 mEQ/L (20-30) Anion Gap 11 (5-15) Blood Urea Nitrogen 39 mg/dL (7-23) H Creatinine 1.6 mg/dL (0.7-1.2) H Estimat Glomerular Filtration Rate mL/min (>60) Glucose Level 114 mg/dL (74-106) H Uric Acid 5.2 mg/dL (3.0-7.5) Calcium Level 9.3 mg/dL (8.6-10.2) Phosphorus Level 2.9 mg/dL (2.5-4.8) Magnesium Level 2.0 mg/dL (1.7-2.5) Total Bilirubin 0.3 mg/dL (0.0-1.2) Aspartate Amino Transf (AST/SGOT) 24 U/L (5-40) Alanine Aminotransferase (ALT/SGPT) 21 U/L (3-41) Alkaline Phosphatase 81 U/L (40-129) Total Protein 6.9 g/dL (6.6-8.7) Albumin 3.3 g/dL (3.5-5.2) L Globulin 3.6 g/dL Albumin/Globulin Ratio 0.9 (1.0-2.7) L Current Medications Medications (Trade) Dose Ordered Sig/Marci Route PRN Reason Start Time Stop Time Status Last Admin Dose Admin Acetaminophen (Tylenol) 325 mg Q4H PRN ORAL Headache/Temp > 101 10/05/16 21:00 11/04/16 20:59 Albuterol/ Ipratropium (DuoNeb 0.5-3(2.5)mg/3ml) 3 ml Q6H PRN HHN Shortness of Breath 10/05/16 21:00 10/10/16 20:59 10/07/16 09:43 Allopurinol (Zyloprim) 100 mg DAILY GT 10/06/16 09:00 11/05/16 08:59 10/07/16 09:01 Ascorbic Acid (Vitamin C) 500 mg DAILY GT 10/06/16 09:00 11/05/16 08:59 10/07/16 08:56 Cefepime HCl/ Dextrose (Maxipime/D5W) 55 ml @ 110 mls/hr Q24H IVPB 10/06/16 18:00 10/13/16 17:59 10/06/16 17:19 Clonidine HCl (Catapres) 0.1 mg Q4H PRN GT SBP > 160 10/05/16 21:00 11/04/16 20:59 10/07/16 09:01 Docusate Sodium (Colace) 250 mg BID GT 10/06/16 09:00 11/05/16 08:59 10/07/16 09:01 Donepezil HCl (Aricept) 10 mg QHS GT 10/05/16 21:00 11/04/16 20:59 10/06/16 21:35 Epoetin Buddy (Procrit (for non ESRD use)) 10,000 units MON-MON-MON SUBQ 10/05/16 21:30 11/04/16 21:29 10/05/16 21:33 Ferrous Sulfate (Feosol) 300 mg DAILY GT 10/06/16 09:00 11/05/16 08:59 10/07/16 09:01 Finasteride (Proscar) 5 mg DAILY GT 10/06/16 09:00 11/05/16 08:59 10/07/16 09:05 Heparin Sodium (Porcine) (Heparin 5000 units/ml) 5,000 units EVERY 12 HOURS SUBQ 10/05/16 21:00 11/04/16 20:59 Hydralazine HCl (Apresoline) 25 mg Q8HR GT 10/05/16 22:00 11/04/16 21:59 10/07/16 13:13 Levetiracetam (Keppra) 500 mg Q12HR GT 10/05/16 21:00 11/04/16 20:59 10/07/16 09:00 Levothyroxine Sodium (Synthroid) 25 mcg ACBREAKFAST GT 10/06/16 06:30 11/05/16 06:29 10/07/16 06:04 Lorazepam (Ativan) 0.5 mg DAILYPRN PRN GT ANXIETY 10/05/16 21:00 10/12/16 20:59 Memantine (Namenda) 10 mg DAILY GT 10/06/16 09:00 11/05/16 08:59 10/07/16 08:56 Metoprolol Tartrate (Lopressor) 12.5 mg Q12HR GT 10/06/16 21:00 11/05/16 20:59 10/07/16 09:01 Multivitamins (Multivitamins W/ Minerals 15ml Liquid) 15 ml DAILY GT 10/06/16 09:00 11/05/16 08:59 10/07/16 09:00 Mupirocin 1 applic 1 applic THREE TIMES A DAY TOPIC 10/06/16 18:00 10/11/16 17:59 10/07/16 13:14 Ondansetron HCl (Zofran) 4 mg Q6H PRN IVP Nausea & Vomiting 10/05/16 21:00 11/04/16 20:59 Sertraline HCl (Zoloft) 50 mg DAILY GT 10/06/16 09:00 11/05/16 08:59 10/07/16 08:56 Tamsulosin HCl (Flomax) 0.4 mg Q12HR GT 10/05/16 21:00 11/04/16 20:59 10/07/16 09:01 Vancomycin HCl (Vanco rx to dose) 1 ea DAILY PRN MISC Per rx protocol 10/05/16 21:00 11/04/16 20:59 Vancomycin HCl/ Dextrose (Vancomycin/D5W) 275 ml @ 183.708 mls/hr Q48H IVPB 10/06/16 21:00 10/11/16 20:59 10/06/16 21:36 Zinc Sulfate (Zinc Sulfate) 220 mg DAILY GT 10/06/16 09:00 11/05/16 08:59 10/07/16 08:56 Robles Mari M.D. Oct 07, 2016 15:12
--- NOTE | 2016-10-07 15:20 | Cardiac Electrophysiology PN ---
Assessment/Plan Assessment/Plan 1. Paroxysmal atrial fibrillation last month at [facility].Currently in sinus rhythm with premature atrial complexes. On Lopressor 12.5 bid. 2. HTN. On Lopressor 3. Renal failure. 4. Dysphagia, status post percutaneous endoscopic gastrostomy placement. 5. Dementia. 6. Severe anemia. Subjective Subjective No events overnight.DC scheduled for today Objective Last 24 Hour Vital Signs Date Time Temp Pulse Resp B/P Pulse Ox O2 Delivery O2 Flow Rate FiO2 10/07/16 13:13 159/84 10/07/16 12:00 98.0 77 18 159/84 94 Nasal Cannula 2.0 10/07/16 09:43 73 17 95 Room Air 2.0 10/07/16 09:01 70 168/77 10/07/16 09:01 168/77 10/07/16 08:54 Nasal Cannula 2.0 10/07/16 08:52 94 Nasal Cannula 2.0 10/07/16 08:52 72 16 Nasal Cannula 2.0 10/07/16 08:00 98.1 82 20 179/81 93 Nasal Cannula 2.0 10/07/16 06:04 140/80 10/07/16 04:00 97.7 72 20 140/80 95 Nasal Cannula 2.0 10/07/16 00:00 97.9 73 20 151/98 91 Nasal Cannula 2.0 10/06/16 21:34 66 182/99 10/06/16 21:34 182/99 10/06/16 21:17 Nasal Cannula 2.0 28 10/06/16 21:16 96 Nasal Cannula 2.0 28 10/06/16 21:16 62 18 Nasal Cannula 2.0 28 10/06/16 20:00 97.7 66 20 182/99 96 Nasal Cannula 2.0 10/06/16 15:54 97.5 61 22 162/79 94 Nasal Cannula 2.0 10/06/16 15:43 162/79 Intake and Output 10/06/16 10/07/16 19:00 07:00 Intake Total 485 ml 1907.416 ml Output Total 2450 ml 800 ml Balance -1965 ml 1107.416 ml Free Water 60 ml 700 ml IV Total 355 ml 367.416 ml Tube Feeding 70 ml 840 ml Output Urine Total 2450 ml 800 ml # Voids 3 # Bowel Movements 2 2 Laboratory Tests Test 10/06/16 18:04 8/11/17 06:20 10/07/16 11:20 Random Vancomycin Level 11.0 ug/mL White Blood Count 5.8 K/UL (4.8-10.8) 5.8 K/UL (4.8-10.8) Red Blood Count 2.89 M/UL (4.70-6.10) L 2.84 M/UL (4.70-6.10) L Hemoglobin 9.0 G/DL (14.2-18.0) L 8.5 G/DL (14.2-18.0) L Hematocrit 28.5 % (42.0-52.0) L 27.7 % (42.0-52.0) L Mean Corpuscular Volume 99 FL (80-99) 97 FL (80-99) Mean Corpuscular Hemoglobin 31.2 PG (27.0-31.0) H 29.9 PG (27.0-31.0) Mean Corpuscular Hemoglobin Concent 31.6 G/DL (32.0-36.0) L 30.6 G/DL (32.0-36.0) L Red Cell Distribution Width 14.0 % (11.6-14.8) 14.1 % (11.6-14.8) Platelet Count 139 K/UL (150-450) L 142 K/UL (150-450) L Mean Platelet Volume 8.0 FL (6.5-10.1) 7.4 FL (6.5-10.1) Neutrophils (%) (Auto) 77.4 % (45.0-75.0) H 75.6 % (45.0-75.0) H Lymphocytes (%) (Auto) 9.2 % (20.0-45.0) L 10.1 % (20.0-45.0) L Monocytes (%) (Auto) 10.7 % (1.0-10.0) H 11.9 % (1.0-10.0) H Eosinophils (%) (Auto) 2.4 % (0.0-3.0) 1.7 % (0.0-3.0) Basophils (%) (Auto) 0.3 % (0.0-2.0) 0.7 % (0.0-2.0) Sodium Level 142 mEQ/L (135-145) Potassium Level 3.9 mEQ/L (3.4-4.9) Chloride Level 105 mEQ/L (98-107) Carbon Dioxide Level 26 mEQ/L (20-30) Anion Gap 11 (5-15) Blood Urea Nitrogen 39 mg/dL (7-23) H Creatinine 1.6 mg/dL (0.7-1.2) H Estimat Glomerular Filtration Rate mL/min (>60) Glucose Level 114 mg/dL (74-106) H Uric Acid 5.2 mg/dL (3.0-7.5) Calcium Level 9.3 mg/dL (8.6-10.2) Phosphorus Level 2.9 mg/dL (2.5-4.8) Magnesium Level 2.0 mg/dL (1.7-2.5) Total Bilirubin 0.3 mg/dL (0.0-1.2) Aspartate Amino Transf (AST/SGOT) 24 U/L (5-40) Alanine Aminotransferase (ALT/SGPT) 21 U/L (3-41) Alkaline Phosphatase 81 U/L (40-129) Total Protein 6.9 g/dL (6.6-8.7) Albumin 3.3 g/dL (3.5-5.2) L Globulin 3.6 g/dL Albumin/Globulin Ratio 0.9 (1.0-2.7) L Objective HEAD AND NECK: No JVD. LUNGS: Coarse rhonchi. CARDIOVASCULAR: Regular S1 and S2 with no gallop. ABDOMEN: Status post G-tube. EXTREMITIES: There is 1+ pitting edema. RAKESH ALEXANDER Oct 07, 2016 15:20
--- NOTE | 2016-10-10 10:54 | Discharge Summary ---
Discharge Summary Hospital Course Date of Admission Oct 02, 2016 at 13:42 Date of Discharge Oct 07, 2016 at 15:34 Admitting Diagnosis pneumonia HPI Gigi Moore is a 86 year old male who was admitted on Oct 02, 2016 at 13: 42 for Pneumonia Hospital Course dc summary #[id number] Discharge Medications Continued Medications: Amlodipine Besylate* (Amlodipine Besylate*) 5 Mg Tablet 5 MG GT TWICE A DAY, TAB Cefepime Hcl/D5w (Cefepime-Dextrose 1 Gm/50 Ml) 1 Gm/50 Ml Piggyback 1 GM IVPB Q24H for 7 Days, BAG Docusate Sodium* (Docusate Sodium*) 100 Mg Capsule 100 MG GT DAILY Ferrous Sulfate* (Ferrous Sulfate*) 325 Mg Tablet 1 TAB GT DAILY, #60 TAB 0 Refills Finasteride* (Proscar*) 5 Mg Tablet 5 MG GT DAILY Hydralazine Hcl* (Hydralazine Hcl*) 50 Mg Tablet 50 MG GT BID Levetiracetam* (Levetiracetam*) 100 Mg/1 Ml Solution 500 MG GT EVERY 12 HOURS Levothyroxine Sodium* (Levothyroxine Sodium*) 25 Mcg Tablet 25 MCG PEG DAILY, TAB Take in the morning on an empty stomach, at least 30 minutes before food. Lorazepam* (Lorazepam*) 1 Mg Tablet 1 MG GT Q8HR PRN for For Anxiety, TAB Mupirocin Nasal (Bactroban Nasal) 1 Gm Oint...g. 1 APPLIC NASAL TID for 5 Days, GM Elimination of MRSA colonization: Approximately one-half of the ointment from the single-use tube should be applied into one nostril and the other half into the other nostril twice daily for 5 days Tamsulosin Hcl (Tamsulosin Hcl*) 0.4 Mg Cap.er.24h 0.4 MG GT BEDTIME Vancomycin Hcl/D5w (Vancomycin-D5w 1 G/250 Ml) 1 Gm/250 Ml Plast..bag 1 GM IVPB Q48HR for 7 Days, BAG Discharge Condition Upon Discharge: stable Discharge Disposition Patient was discharged to SNF/Subacute Facility(03) Discharge Diagnoses: Discharge Instructions Discharge Instructions Special Instructions I have been assigned to complete a D/C Summary on this account. I was not involved in the patient management Cornelia Mcfarland NP (Vanchtein) Oct 10, 2016 10:54
--- NOTE | 2016-10-10 21:15 | Discharge Summary 2 SIG ---
DATE OF ADMISSION: 10/02/2016 DATE OF DISCHARGE: 10/07/2016 REASON FOR ADMISSION: 86-year-old male, [facility] with past medical history significant for COPD, Parkinson disease, dementia, dysphagia, and G-tube, was brought to emergency department for evaluation due to the fever and productive cough. Chest x-ray revealed evidence of bilateral infiltrates. No leukocytosis. Pulse oximetry 91% on 4 liters of oxygen via nasal cannula. Patient was febrile in the emergency department. Anemic with hemoglobin -7.9, hematocrit -24.9. Renal parameters : BUN -68 and creatinine -2.3. EKG showed atrial fibrillation with controlled ventricular response. The patient was admitted for further management. ADMITTING DIAGNOSES: 1. Sepsis. 2. Pneumonia. 3. Renal failure. 4. Anemia. 5. Dysphagia, gastrostomy tube. 6. Paroxysmal atrial fibrillation. 7. Hypertension. HOSPITAL STAY: The patient was admitted. Cardiology, Pulmonology, ID, Hematology and Nephrology consults were requested. Urinalysis was negative for UTI. Blood culture were negative. Sputum culture was negative. Follow up chest x-ray without much improvement: mild patchy bilateral alveolar interstitial congestion. Supplemental oxygen provided to keep pulse oximetry above 92%. Pulmonary toilet provided as needed. Antitussive provided as needed. Instrument Installer closely followed the patient. According to the cs associate, the patient had acute kidney injury on chronic kidney disease likely precipitated by dehydration. The patient started on the IV fluids. Renal parameters, and electrolytes were closely monitored. Nephrotoxics were avoided. ARB stopped due to the acute kidney injury. Prior to discharge. BUN down to 39 creatinine down to 1.6. Instrument Installer titrated antihypertensive medication regimen. Blood pressure was managed with calcium channel penleope and hydralazine, off ARB- as mentioned above. Anemia workup revealed anemia of chronic disease. Parking Manager followed. He recommended to monitor counts and transfuse as needed. T Per Cardiology, the patient had paroxysmal atrial fibrillation. However at current admission predominantly sinus rhythm with PAC. In lieu of anemia and bleeding when anticoagulation restarted prior, no anticoagulation for paroxysmal atrial fibrillation restarted. Rate was controlled. Echocardiogram revealed ejection fraction of 55% to 60% and right ventricular systolic pressure of 27. TSH was within normal limits. Current dose of levothyroxine was continued. The patient was stable for transfer back [facility]. Fever resolved. No leukocytosis. No respiratory distress. Follow up with antibiotics as outlined by ID. . DISCHARGE DIAGNOSES: 1. Sepsis. 2. Healthcare-associated pneumonia. 3. Acute kidney injury on chronic kidney disease. 4. Anemia of chronic disease. 5. Dysphagia, gastrostomy tube. 6. History of cerebrovascular accident. 7. Paroxysmal atrial fibrillation. 8. Hypertension. 9. Dementia. 10. Hypothyroidism. DISCHARGE INSTRUCTIONS: The [facility] was [facility]. Follow up with CXR after completion of antibiotic therapy. FOLLOWUP: Follow up with medical doctor at the facility. DISCHARGE MEDICATIONS: See medication reconciliation list. The patient was discharged as per ID recommendation on seven more days of antibiotics in the [facility] facility. Seth Lee M.D. I have been assigned to dictate discharge summary on this account and I was not involved in the patient's management. Cornelia Ervinyonny N.PBrionna DR: KAMALA JOB#: [id number] CC: SYLVIA
== END 2016-10-07 15:34 | DRG 871 ==
LOC: EDUNIT# 12:20 → EDBD 12:20 → EMR 12:40 → 2E 13:42 → EDBEDREQ 14:18 → 2E 18:14 → 4E 10-05 20:36
DX: A41.9 Sepsis, unspecified organism (principal); J18.9 Pneumonia, unspecified organism; J96.00 Acute respiratory failure, unspecified whether with hypoxia or hypercapnia; N17.9 Acute kidney failure, unspecified; N13.30 Unspecified hydronephrosis; G20 Parkinson's disease; I13.10 Hypertensive heart and chronic kidney disease without heart failure, with stage 1 through stage 4 chronic kidney disease, or unspecified chronic kidney disease; R13.10 Dysphagia, unspecified; I48.0 Paroxysmal atrial fibrillation; Z43.1 Encounter for attention to gastrostomy; N18.9 Chronic kidney disease, unspecified; E03.9 Hypothyroidism, unspecified; G40.909 Epilepsy, unspecified, not intractable, without status epilepticus; I25.10 Atherosclerotic heart disease of native coronary artery without angina pectoris; G30.9 Alzheimer's disease, unspecified; F02.80 Dementia in other diseases classified elsewhere, unspecified severity, without behavioral disturbance, psychotic disturbance, mood disturbance, and anxiety; K21.9 Gastro-esophageal reflux disease without esophagitis; Z66 Do not resuscitate; F29 Unspecified psychosis not due to a substance or known physiological condition; D63.1 Anemia in chronic kidney disease; Z86.718 Personal history of other venous thrombosis and embolism; K29.70 Gastritis, unspecified, without bleeding; I49.1 Atrial premature depolarization; F01.50 Vascular dementia, unspecified severity, without behavioral disturbance, psychotic disturbance, mood disturbance, and anxiety
CPT/HCPCS: 36415; 36600; 71010; 74000; 80053; 80061; 80202; 81003; 82550; 82607; 82728; 82746; 82803; 82977; 83036; 83540; 83550; 83735; 83880; 84100; 84439; 84443; 84484; 84550; 85007; 85025; 85610; 85730; 86140; 86850; 86900; 86901; 86920; 87040; 87070; 87081; 87205; 93005; 93306; 94640; 94664; 94760; J7620; S0077

== ENCOUNTER 2016-11-03 10:09 | Emergency (ER) | payer MEDICARE, MEDICAID ==
[~2016-11-03] VITALS: Ht 188 cm; Wt 90.7 kg
[~2016-11-03 10:09] MED LIST changes: +BACTROBAN NASAL1 GM NASAL; +CEFEPIME IM; +CEFEPIME-D1 GM/50 ML IVPB; +DOCUSATE SODIU100 MG GT; +HYDRALAZINE HCL50 MG GT; +LEVETIRACE100 MG/1 M GT; +PROSCAR5 MG GT; +TAMSULOSIN HCL0.4 MG GT; +VANCOMYCIN1 GM/2502 IVPB
[2016-11-03 10:15] VITALS: BP 157/72
[2016-11-03] MEDS ORDERED: VITAMIN C500 M1 GT (10:16)
[2016-11-03] MEDS ORDERED: MULTI-DELYN237 ML GT (10:16)
--- NOTE | 2016-11-03 11:11 | Emergency Room Report ---
History of Present Illness General Chief Complaint: Abnormal Labs Source: Medical Record, PMD Present Illness HPI 86-year-old male history of hypertension, dementia, history of subarachnoid, nonverbal, PEG tube, chronic anemia, sent in for low hemoglobin. Dr. Han is PCP and stated that patient's a sliding hemoglobin is around 9, and was found to be 7.3. Unknown last colonoscopy or endoscopy results. Per [facility] charts there was no mention of any upper or lower GI bleeding. Allergies: Coded Allergies: No Known Allergies (Unverified , 04/13/15) Patient History Past Medical History: see triage record Past Surgical History: none Pertinent Family History: none Reviewed Nursing Documentation: PMH: Agreed, PSxH: Agreed Nursing Documentation-PMH Hx Cardiac Problems: Yes Hx Hypertension: Yes Hx Cancer: No Hx Gastrointestinal Problems: Yes Hx Neurological Problems: Yes - dementia, schizoprenia Hx Cerebrovascular Accident: Yes Hx Dementia: Yes Hx Alzheimer's Disease: Yes Hx Parkinson's Disease: Yes Hx Encephalitis: No - Encephalopathy Hx Speech Problem: Yes - communicate deficit Hx Weakness: Yes Review of Systems All Other Systems: limited - nonverbal/dementia Physical Exam Vital Signs Date Time Temp Pulse Resp B/P (MAP) Pulse Ox O2 Delivery O2 Flow Rate FiO2 11/03/16 10:03 98.2 70 20 149/68 97 Room Air Sp02 EP Interpretation: reviewed, normal General Appearance: other - Chronically ill-appearing elderly male, awake at bedside, moving all 4 shimmy these spontaneously, does not appear to be in acute distress Head: normocephalic, atraumatic Eyes: bilateral eye normal inspection, bilateral eye PERRL, bilateral eye EOMI ENT: normal ENT inspection, normal pharynx, moist mucus membranes Neck: normal inspection, full range of motion, supple Respiratory: normal inspection, lungs clear, normal breath sounds, no respiratory distress, no retraction, no wheezing, speaking full sentences, chest symmetrical Cardiovascular #1: normal inspection, regular rate, rhythm, no edema, normal capillary refill Cardiovascular #2: 2+ radial (R), 2+ radial (L) Gastrointestinal: non tender, soft, non-distended, no guarding, other - PEG tube in place, no tenderness to deep palpation all quadrants Musculoskeletal: back normal, normal range of motion, non-tender Neurologic: responsive, sensory intact, other - Awake, oriented to name, moving all 4 extremities Psychiatric: normal inspection, judgement/insight normal, memory normal Skin: normal inspection, normal color, no rash, warm/dry, well hydrated, normal turgor Medical Decision Making Diagnostic Impression: Primary Impression: Chronic anemia ER Course 86 yo M with low H&H DDX: Anemia, at this time there are no known episodes of upper or lower GI bleeding Asians is hemodynamically stable Plan: Obtain labs, type and screen, transfuse if indicated ER course: Patient has remained stable during ED stay. Vital signs within normal. Last H&H is currently within patient's normal baseline. There have been no episodes of bleeding in the ER. Spoke to the patient's primary care DrBrionna and conveyed results. Patient is now safe for discharge back to the [facility]. Disposition: Patient is to be discharged to [facility] Patient is instructed to follow up with their primary care doctor within 5 days. Please note that this Emergency Department Report was dictated using [employer] technology software, occasionally this can lead to erroneous entry secondary to interpretation by the dictation equipment Laboratory Tests Test 11/03/16 10:40 11/03/16 10:47 Urine Color Pending Urine Appearance Pending Urine pH Pending Urine Specific Roy Pending Urine Protein Pending Urine Glucose (UA) Pending Urine Ketones Pending Urine Occult Blood Pending Urine Nitrite Pending Urine Bilirubin Pending Urine Urobilinogen Pending Urine Leukocyte Esterase Pending White Blood Count 4.9 K/UL (4.8-10.8) Red Blood Count 3.09 M/UL (4.70-6.10) L Hemoglobin 9.4 G/DL (14.2-18.0) L Hematocrit 30.1 % (42.0-52.0) L Mean Corpuscular Volume 98 FL (80-99) Mean Corpuscular Hemoglobin 30.4 PG (27.0-31.0) Mean Corpuscular Hemoglobin Concent 31.2 G/DL (32.0-36.0) L Red Cell Distribution Width 15.4 % (11.6-14.8) H Platelet Count 114 K/UL (150-450) L Mean Platelet Volume 9.5 FL (6.5-10.1) Neutrophils (%) (Auto) 69.3 % (45.0-75.0) Lymphocytes (%) (Auto) 17.8 % (20.0-45.0) L Monocytes (%) (Auto) 8.7 % (1.0-10.0) Eosinophils (%) (Auto) 3.9 % (0.0-3.0) H Basophils (%) (Auto) 0.4 % (0.0-2.0) Prothrombin Time 9.7 SEC (9.30-11.50) Prothrombin Time INR 0.9 (0.9-1.1) PTT 25 SEC (23-33) Sodium Level 146 mEQ/L (135-145) H Potassium Level 4.0 mEQ/L (3.4-4.9) Chloride Level 108 mEQ/L (98-107) H Carbon Dioxide Level 28 mEQ/L (20-30) Anion Gap 10 (5-15) Blood Urea Nitrogen 61 mg/dL (7-23) H Creatinine 1.8 mg/dL (0.7-1.2) H Estimate Glomerular Filtration Rate mL/min (>60) Glucose Level 85 mg/dL (74-106) Calcium Level 9.4 mg/dL (8.6-10.2) Total Bilirubin 0.3 mg/dL (0.0-1.2) Aspartate Amino Transferase (AST) 19 U/L (5-40) Alanine Aminotransferase (ALT) 18 U/L (3-41) Alkaline Phosphatase 81 U/L (40-129) Total Protein 7.0 g/dL (6.6-8.7) Albumin 3.6 g/dL (3.5-5.2) Globulin 3.4 g/dL Albumin/Globulin Ratio 1.0 (1.0-2.7) Lipase 48 U/L (< 60) EKG Diagnostic Results Rate: normal Rhythm: other - sinus arrythmia ST Segments: other - Q waves inferior leads. Rhythm Strip Diag. Results EP Interpretation: yes Rate: 70 Rhythm: no PVC's, no ectopy Other Impression sinus arrythmia Chest X-Ray Diagnostic Results Chest X-Ray Diagnostic Results : Chest X-Ray Ordered: Yes # of Views/Limited/Complete: 1 View Indication: Other EP Interpretation: Yes Interpretation: no consolidation, no effusion, no pneumothorax, no acute cardiopulmonary disease Impression: No acute disease Electronically Signed by: Electronically signed by Anais Lopez MD Last Vital Signs Date Time Temp Pulse Resp B/P (MAP) Pulse Ox O2 Delivery O2 Flow Rate FiO2 11/03/16 10:03 98.2 70 20 149/68 97 Room Air Disposition: XFER SNF Condition: Stable Referrals: Seth Lee MD (PCP) Anais Lopez M.D. Nov 03, 2016 11:11
[2016-11-03 11:22] LABS: BASOPHILS % (AUTO) 0.4 % (0.0-2.0); EOSINOPHILS % (AUTO) 3.9 % (0.0-3.0); LYMPHOCYTES % (AUTO) 17.8 % (20.0-45.0); MEAN CORPUSCULAR HEMOGLOBIN 30.4 PG (27.0-31.0); MEAN CORPUSCULAR HGB CONC 31.2 G/DL (32.0-36.0); MEAN CORPUSCULAR VOLUME 98 FL (80-99); MEAN PLATELET VOLUME 9.5 FL (6.5-10.1); MONOCYTES % (AUTO) 8.7 % (1.0-10.0); NEUTROPHILS % (AUTO) 69.3 % (45.0-75.0); PLATELET COUNT 114 K/UL (150-450); RED BLOOD COUNT 3.09 M/UL (4.70-6.10); RED CELL DISTRIBUTION WIDTH 15.4 % (11.6-14.8); WHITE BLOOD COUNT 4.9 K/UL (4.8-10.8)
[2016-11-03 11:34] LABS: ALANINE AMINOTRANSFERASE 18 U/L (3-41); ANION GAP 10 (5-15); ASPARTATE AMINO TRANSFERASE 19 U/L (5-40); CALCIUM 9.4 mg/dL (8.6-10.2); CARBON DIOXIDE 28 mEQ/L (20-30); CHLORIDE 108 mEQ/L (98-107); CREATININE 1.8 mg/dL (0.7-1.2); HEMOLYSIS 7; INR 0.9 (0.9-1.1); LIPASE 48 U/L (< 60); PROTHROMBIN TIME 9.7 SEC (9.30-11.50); SODIUM 146 mEQ/L (135-145)
[2016-11-03 12:00] VITALS: BP 167/52
--- NOTE | 2016-11-03 13:15 | Diagnostic Imaging Report ---
Indication: Cough Technique: One view of the chest Comparison: 10/07/2016 Findings: Previously demonstrated perihilar edema is no longer evident. Lungs and pleural spaces are currently clear. Heart is mildly enlarged. Aorta is tortuous and calcified. Upper mediastinum is unremarkable Impression: Cardiomegaly No acute process
[2016-11-03 14:23] VITALS: BP 133/64
== END 2016-11-03 14:26 ==
LOC: EDBD 10:09 → EMR 10:38 → 4W 11:10 → UNDOADMIN 11:10 → EDBEDREQ 11:26 → CANBEDREQ 12:29 → EMR 14:26
DX: D64.9 Anemia, unspecified (principal); I10 Essential (primary) hypertension; G20 Parkinson's disease; F02.80 Dementia in other diseases classified elsewhere, unspecified severity, without behavioral disturbance, psychotic disturbance, mood disturbance, and anxiety; G30.9 Alzheimer's disease, unspecified; Z86.73 Personal history of transient ischemic attack (TIA), and cerebral infarction without residual deficits
CPT/HCPCS: 36415; 51701; 71010; 80053; 83690; 85025; 85610; 85730; 86850; 86900; 86901; 93005; 99284